=== PATIENT | male | born 1965 | race Caucasian/White ===

== ENCOUNTER 2020-08-19 18:55 | Inpatient (IN) | payer OTHER, SELFPAY ==
[2020-08-19 19:44] VITALS: BP 139/78; PULSE 135; RESP 18; TEMP 37.3; O2SAT 97; BMI 36.9
--- NOTE | 2020-08-19 20:03 | CT_ITS ---
EXAMINATION: CT ABDOMEN AND PELVIS WITH CONTRAST CLINICAL INFORMATION: Perineal area pain question as abscess. COMPARISON: None TECHNIQUE: Multidetector volumetric images were obtained from the superior aspect of the liver through the pubic symphysis following administration 85 mL of Omnipaque 350 intravenous contrast. Sagittal and coronal reformatted images were obtained on the technologist's workstation. Oral contrast: No This CT examination was performed using dose optimization techniques as appropriate, variously including the following: *Automated exposure control *Adjustment of mA and/or kV according to patient size (this includes techniques or standardized protocols for targeted exams where dose is matched to indication/reason for exam; i.e. extremities or head) *Use of iterative reconstruction technique DLP: 1737 mGy-cm FINDINGS: LUNG BASES: The visualized lung bases are unremarkable. LIVER, GALLBLADDER, AND BILIARY TREE: The liver is normal in size, shape, and attenuation. No focal hepatic lesion or biliary ductal dilatation is present. The gallbladder is unremarkable with no evidence of radiopaque gallstones, gallbladder wall thickening, or obvious pericholecystic inflammatory changes. PANCREAS: Unremarkable. SPLEEN: Unremarkable. ADRENAL GLANDS: Mild bilateral adrenal enlargement is seen. KIDNEYS AND URETERS: The kidneys are normal in size, shape, and attenuation. No hydronephrosis, hydroureter, or calculi seen. There are 2.5 x 2.6 cm cyst exophytic upper pole left kidney. There is bilateral perinephric stranding. BLADDER: Unremarkable. GASTROINTESTINAL TRACT: There is moderate scattered stool seen in the colon without any significant distention. The small bowel loops are normal caliber. The stomach is nondistended. No free air or free fluid seen. ABDOMINAL WALL: No significant hernia is appreciated. LYMPH NODES: Normal. VASCULAR: Unremarkable. PELVIC VISCERA: There is a right perianal soft tissue density consistent with inflammation but no drainable abscess or gas seen. Prominent bilateral inguinal canal containing fat is noted. The prostate gland is mildly enlarged. OSSEOUS STRUCTURES: No lytic or sclerotic process seen. CT/CT abdomen pelvis w con IMPRESSION: Right perineal soft tissue induration likely inflammatory process. There is no abscess or gas collection seen. Bilateral ischiorectal fossa appears normal. There is no abnormal pelvic or inguinal lymph nodes. Bilateral perinephric stranding. Small exophytic 2.6 cm cyst upper pole left kidney.
--- NOTE | 2020-08-19 20:04 | ECG_ITS ---
Test Reason : ABSCESS Blood Pressure : / mmHG Vent. Rate : 126 BPM Atrial Rate : 126 BPM P-R Int : 142 ms QRS Dur : 080 ms QT Int : 298 ms P-R-T Axes : 059 068 041 degrees QTc Int : 431 ms Sinus tachycardia Otherwise normal ECG When compared with ECG of 26-DEC-2018 12:51, No significant change was found Referred By: Suzie Ly Electronically Signed By:KARLY WELCH
--- NOTE | 2020-08-19 20:07 | ED.SKABFB ---
HPI - Skin/Abscess/Foreign Bdy General Chief complaint: Skin/Abscess/Foreign Body Stated complaint: Abscess Time Seen by Provider: 08/19/20 20:03 Source: patient Mode of arrival: ambulatory Limitations: no limitations History of Present Illness HPI narrative: 54 yo male with DM here with nausea, cellulitis and abscess R buttock into perineum that is draining yellow fluid, hx in December 2018 of necrotizing fasciitis - this feels somewhat similar but not as severe, area has been present x 3 days in the shower the patient expressed a significant amount of purulent exudate MD complaint: abscess/boil and lesion Onset (ago): day(s) (3) Tetanus up to date: yes Location: buttocks Severity: moderate Quality: aching Pain Consistency: constant Relieving factors: none Exacerbating factors: palpation and movement Context: other (hx of similar episodes in past requiring multiple debridements) Associated symptoms: chills and nausea Treatments prior to arrival: none Related Data Home Medications Medication Instructions Recorded Confirmed dulaglutide [Trulicity] 1 mg SUBCUT QWEEK 08/19/20 08/19/20 glipizide 1 tab PO DAILY 08/19/20 08/19/20 Allergies Allergy/AdvReac Type Severity Reaction Status Date / Time No Known Allergies Allergy Verified 08/19/20 19:47 [No Known Allergies*] Review of Systems Review of Systems: Constitutional : No Fever, pos Chills ENT/Mouth : No sore throat, No Rhinorrhea Eyes: No Eye Pain, No Swelling, No Redness Cardiovascular : No Chest Pain, No SOB Respiratory : No Cough, No Sputum Gastrointestinal : pos Nausea, No Vomiting, No Diarrhea, No abdominal Pain Genitourinary : No Dysuria, No Hematuria Musculoskeletal : No joint pain, No Myalgias, No Joint Swelling Skin : pos Skin Lesions, positive skin rash Neuro : No Weakness, No Numbness, No Headache Psych : No Anxiety, No Depression Heme/Lymph: No Bruising, No Bleeding,No Lymphadenopathy Endocrine : No Polyuria, No Polydipsia All other systems reviewed and are negative PMFSH Past Medical History Attestation statement: The following information was validated with the patient. Source: old records reviewed Medical History Diabetes HTN (hypertension) Necrotizing fasciitis Surgical History History of incision and drainage Social History Social History Smoking Status: Current every day smoker Substance Use Type: Marijuana Advance Directives: No Advance Directives Information Provided: Yes Physical Exam Vital Signs: Vital Signs: Last Vital Signs Temp 98.3 F 08/19/20 22:23 Pulse 115 H 08/19/20 22:23 Resp 16 08/19/20 22:23 BP 129/74 08/19/20 22:23 Pulse Ox 96 08/19/20 22:23 Body Mass Index 36.9 Appearance: Alert. Oriented X3. No acute distress. Eyes: Pupils equal, round and reactive to light. ENT: Pharynx normal. Neck: Normal inspection. Neck supple. CVS: tachycardic heart rate and rhythm. Pulses normal. Respiratory: No respiratory distress. Breath sounds normal. Abdomen: Soft and nontender. Genital / Rectal : R buttock large 6+ cm area that is indurated and thickened with yellow/red drainage from a point area extends into the perineum but does not involve the scrotal sac, ttp, very warm to touch Skin: Skin warm and dry. Normal skin color. Normal skin turgor. Extremities: No lower extremity edema. No calf ttp Neuro: Oriented X 3. No motor deficit. No sensory deficit. Course Course Course Narrative: I lanced the are on his buttock that was to a point and already draining, 10cc of thick serosanguinous fluid came out, plan to admit to hospital Procedures Abscess I/D Site: other (R buttock) Side (if applicable): right Local Anesthetic: lidocaine 1% Amount of anesthesia used (mL): 5 Technique: needle aspiration and incised with blade Amount of fluid expressed (mL): 10 Sent for culture/gram staining?: No Irrigation: Yes Packing used?: none MDM - Skin/Abscess/Foreign Bdy MDM Narrative Medical decision making narrative: 54 yo male with DM hx of necrotizing fasciitis in 2019 here with buttock abscess into the perineum no scrotal involvement now his lesion has been present and worsening for 3 days came today due to chills feeling hot and nausea, he will need labs, cultures, CT scan for gas, empiric zosyn, vancomyinc, clinda for toxin production, he will need monitoring and admission, possible surgical consult pending CT scan and results Lab Data Result diagrams: 08/19/20 20:57 08/19/20 20:57 Labs: Lab Results 08/19/20 08/19/20 08/19/20 Range/Units 20:56 20:56 20:56 WBC (4.8-10.8) X10*3/uL RBC (4.60-5.80) X10*6/uL Hgb (14.0-18.0) g/dl Hct (42-52) % MCV (80-98) fL MCH (27.0-33.0) pg MCHC (31.0-36.0) g/dl RDW (11.0-16.0) % Plt Count (160-400) X10*3/uL MPV (9.4-12.4) fL Immature Gran % (Auto) (0.0-0.4) % Neut % (Auto) (45-73) % Lymph % (Auto) (20-40) % [place] % (Auto) (2-11) % Eos % (Auto) (0-4) % Baso % (Auto) (0-2) % Lymph # (Auto) (1.2-4.9) X10*3/uL [place] # (Auto) (0.1-1.2) X10*3/uL Eos # (Auto) (0.0-0.4) X10*3/uL Baso # (Auto) (0.0-0.2) X10*3/uL Abs Immat Gran (auto) (0.00-0.03) X10*3/uL Absolute Neuts (auto) (2.0-8.3) X10*3/uL Absolute Nucleated RBC (0.0-0.012) X10*3/uL Nucleated RBC % (auto) (0.0-0.2) /100WBC Smear Tech's Comments PT (10.8-13.0) SEC INR (0.9-1.1) APTT (24.1-38.0) SEC VBG pH 7.45 H (7.32-7.43) VBG pCO2 41 mmhg VBG pO2 67 mmhg VBG HCO3 28 mmol/L VBG O2 Saturation 94.9 % VBG Base Excess 3.4 mmol/L Sodium (135-145) mmol/L Potassium (3.3-5.1) mmol/l Chloride (96-108) mmol/L Carbon Dioxide (22-29) mmol/L Anion Gap (12-20) BUN (9-16) mg/dL Creatinine (0.5-1.4) mg/dL Estim Creat Clear Calc Estimated GFR Random Glucose (60-115) mg/dL Lactic Acid 0.9 (0.5-2.0) mmol/L Calcium (8.4-10.2) mg/dL Magnesium 2.0 (1.6-2.6) mg/dL Total Bilirubin 0.4 (0.0-1.0) mg/dL Direct Bilirubin 0.2 (0.0-0.5) mg/dL AST 10 (5-37) U/L ALT 14 (0-40) U/L Alkaline Phosphatase 93 (39-117) U/L Total Creatine Kinase (38-174) U/L Total Protein 6.4 L (6.5-8.0) g/dL Albumin 3.6 (3.5-5.0) g/dL COVID-19 (GURVINDER) (Negative) COVID-19 Clin Com 08/19/20 08/19/20 08/19/20 Range/Units 20:57 20:57 20:57 WBC 18.7 H (4.8-10.8) X10*3/uL RBC 4.66 (4.60-5.80) X10*6/uL Hgb 15.1 (14.0-18.0) g/dl Hct 44.4 (42-52) % MCV 95.3 (80-98) fL MCH 32.4 (27.0-33.0) pg MCHC 34.0 (31.0-36.0) g/dl RDW 12.4 (11.0-16.0) % Plt Count 259 (160-400) X10*3/uL MPV 11.1 (9.4-12.4) fL Immature Gran % (Auto) 0.4 (0.0-0.4) % Neut % (Auto) 77.0 H (45-73) % Lymph % (Auto) 12.4 L (20-40) % [place] % (Auto) 9.1 (2-11) % Eos % (Auto) 0.8 (0-4) % Baso % (Auto) 0.3 (0-2) % Lymph # (Auto) 2.3 (1.2-4.9) X10*3/uL [place] # (Auto) 1.7 H (0.1-1.2) X10*3/uL Eos # (Auto) 0.2 (0.0-0.4) X10*3/uL Baso # (Auto) 0.1 (0.0-0.2) X10*3/uL Abs Immat Gran (auto) 0.08 H (0.00-0.03) X10*3/uL Absolute Neuts (auto) 14.4 H (2.0-8.3) X10*3/uL Absolute Nucleated RBC 0.000 (0.0-0.012) X10*3/uL Nucleated RBC % (auto) 0.0 (0.0-0.2) /100WBC Smear Tech's Comments VERIFIED PT (10.8-13.0) SEC INR (0.9-1.1) APTT (24.1-38.0) SEC VBG pH (7.32-7.43) VBG pCO2 mmhg VBG pO2 mmhg VBG HCO3 mmol/L VBG O2 Saturation % VBG Base Excess mmol/L Sodium 135 (135-145) mmol/L Potassium 4.2 (3.3-5.1) mmol/l Chloride 99 (96-108) mmol/L Carbon Dioxide 25 (22-29) mmol/L Anion Gap 15 (12-20) BUN 11 (9-16) mg/dL Creatinine 0.92 (0.5-1.4) mg/dL Estim Creat Clear Calc 119.6 Estimated GFR > 60 Random Glucose 273 H (60-115) mg/dL Lactic Acid (0.5-2.0) mmol/L Calcium 8.8 (8.4-10.2) mg/dL Magnesium (1.6-2.6) mg/dL Total Bilirubin (0.0-1.0) mg/dL Direct Bilirubin (0.0-0.5) mg/dL AST (5-37) U/L ALT (0-40) U/L Alkaline Phosphatase (39-117) U/L Total Creatine Kinase 38 (38-174) U/L Total Protein (6.5-8.0) g/dL Albumin (3.5-5.0) g/dL COVID-19 (GURVINDER) Negative (Negative) COVID-19 Clin Com See Note 08/19/20 Range/Units 20:57 WBC (4.8-10.8) X10*3/uL RBC (4.60-5.80) X10*6/uL Hgb (14.0-18.0) g/dl Hct (42-52) % MCV (80-98) fL MCH (27.0-33.0) pg MCHC (31.0-36.0) g/dl RDW (11.0-16.0) % Plt Count (160-400) X10*3/uL MPV (9.4-12.4) fL Immature Gran % (Auto) (0.0-0.4) % Neut % (Auto) (45-73) % Lymph % (Auto) (20-40) % [place] % (Auto) (2-11) % Eos % (Auto) (0-4) % Baso % (Auto) (0-2) % Lymph # (Auto) (1.2-4.9) X10*3/uL [place] # (Auto) (0.1-1.2) X10*3/uL Eos # (Auto) (0.0-0.4) X10*3/uL Baso # (Auto) (0.0-0.2) X10*3/uL Abs Immat Gran (auto) (0.00-0.03) X10*3/uL Absolute Neuts (auto) (2.0-8.3) X10*3/uL Absolute Nucleated RBC (0.0-0.012) X10*3/uL Nucleated RBC % (auto) (0.0-0.2) /100WBC Smear Tech's Comments PT 12.4 (10.8-13.0) SEC INR 1.0 (0.9-1.1) APTT 30.2 (24.1-38.0) SEC VBG pH (7.32-7.43) VBG pCO2 mmhg VBG pO2 mmhg VBG HCO3 mmol/L VBG O2 Saturation % VBG Base Excess mmol/L Sodium (135-145) mmol/L Potassium (3.3-5.1) mmol/l Chloride (96-108) mmol/L Carbon Dioxide (22-29) mmol/L Anion Gap (12-20) BUN (9-16) mg/dL Creatinine (0.5-1.4) mg/dL Estim Creat Clear Calc Estimated GFR Random Glucose (60-115) mg/dL Lactic Acid (0.5-2.0) mmol/L Calcium (8.4-10.2) mg/dL Magnesium (1.6-2.6) mg/dL Total Bilirubin (0.0-1.0) mg/dL Direct Bilirubin (0.0-0.5) mg/dL AST (5-37) U/L ALT (0-40) U/L Alkaline Phosphatase (39-117) U/L Total Creatine Kinase (38-174) U/L Total Protein (6.5-8.0) g/dL Albumin (3.5-5.0) g/dL COVID-19 (GURVINDER) (Negative) COVID-19 Clin Com ECG Data Attestation: I personally reviewed and interpreted this ECG as follows: ECG interpretation date: 08/19/20 ECG interpretation time: 20:17 Interpretation: Rate: 126 Rhythm: sinus tachycardia [place]: normal Normal P waves. Normal BHARAT. Normal QRS complex. ST T wave : normal no MARY qTC: normal prior studies: no acute ischemia The study has been interpreted contemporaneously by me. . Discharge Plan Discharge Clinical Impression: Cellulitis Qualifiers: Site of cellulitis: buttock Qualified Code(s): L03.317 - Cellulitis of buttock Leukocytosis Qualifiers: Leukocytosis type: unspecified Qualified Code(s): D72.829 - Elevated white blood cell count, unspecified Patient Disposition: Admitted As Inpatient
[2020-08-19] MEDS: Acetaminophen 325 MG TABLET 650 MG PO (21:00)
[2020-08-19] MEDS: ondansetron HCL 4 MG/2 ML VIAL IVPUSH (21:02)
[2020-08-19] MEDS: Morphine Sulfate 4 MG/ML CARTRIDGE IVPUSH (21:02)
[2020-08-19] MEDS: Piperacillin Sodium/Tazobactam 3.375 GM in 0.9 % Sodium Chloride 50 ML IV (21:03)
[2020-08-19 21:04] LABS: Basophils Absolute Auto 0.1 X10*3/uL (0.0-0.2); Basophils Percent Auto 0.3 % (0-2); Eosinophils Absolute Auto 0.2 X10*3/uL (0.0-0.4); Eosinophils Percent Auto 0.8 % (0-4); Hematocrit 44.4 % (42-52); Hemoglobin 15.1 g/dl (14.0-18.0); Imm Gran Abs Auto 0.08 X10*3/uL (0.00-0.03); Imm Gran Pct Auto 0.4 % (0.0-0.4); Lymphocytes Absolute Auto 2.3 X10*3/uL (1.2-4.9); Lymphocytes Percent Auto 12.4 % (20-40); MANUAL DIFF FLAG SCAN; Mean Corpuscular Hemoglobin 32.4 pg (27.0-33.0); Mean Corpuscular Volume 95.3 fL (80-98); Mean Platelet Volume 11.1 fL (9.4-12.4); Monocytes Absolute Auto 1.7 X10*3/uL (0.1-1.2); Monocytes Percent Auto 9.1 % (2-11); Neutrophils Absolute Auto 14.4 X10*3/uL (2.0-8.3); Platelet Count 259 X10*3/uL (160-400); Red Blood Count 4.66 X10*6/uL (4.60-5.80); Red Cell Distribution Width 12.4 % (11.0-16.0); SCAN SMEAR FLAG 1; White Blood Count 18.7 X10*3/uL (4.8-10.8)
[2020-08-19 21:08] LABS: Base Excess VBG 3.4 mmol/L; Blood Gas Serial # 5414; HCO3 VBG 28 mmol/L; Oxygen Saturation VBG 94.9 %; PCO2 VBG 41 mmhg; PO2 VBG 67 mmhg; pH VBG 7.45 (7.32-7.43)
[2020-08-19 21:11] LABS: Prothrombin Time 12.4 SEC (10.8-13.0)
[2020-08-19 21:14] LABS: Partial Thromboplastin Time 30.2 SEC (24.1-38.0)
[2020-08-19 21:25] LABS: COVID-19 Test Negative (Negative)
[2020-08-19 21:28] LABS: Lactic Acid 0.9 mmol/L (0.5-2.0)
[2020-08-19 21:32] LABS: Alanine Aminotransferase 14 U/L (0-40); Albumin Level 3.6 g/dL (3.5-5.0); Alkaline Phosphatase 93 U/L (39-117); Aspartate Amino Transferase 10 U/L (5-37); Bilirubin Direct 0.2 mg/dL (0.0-0.5); Bilirubin Total 0.4 mg/dL (0.0-1.0); Total Protein 6.4 g/dL (6.5-8.0)
[2020-08-19 21:33] LABS: Anion Gap 15 (12-20); Blood Urea Nitrogen 11 mg/dL (9-16); Calcium 8.8 mg/dL (8.4-10.2); Carbon Dioxide 25 mmol/L (22-29); Chloride 99 mmol/L (96-108); Creatinine Clr Calc Pharmacy 119.6; Estimated Glomerular Filt Rate > 60; Glucose Random 273 mg/dL (60-115); Potassium 4.2 mmol/l (3.3-5.1); Sodium 135 mmol/L (135-145)
[2020-08-19 21:39] LABS: SLIDE REVIEW VERIFIED
[2020-08-19] MEDS: Lidocaine/Epineph/Tetracaine 3 ML GEL.PF.APP TOPICAL (21:52)
[2020-08-19] MEDS: Clindamycin Phosphate/D5W 900 MG/50 ML PIGGYBACK 50 MG IV (21:57)
[2020-08-19] MEDS: iohexoL 350 MG/ML 100 ML INFUS..BTL IV (22:22)
[2020-08-19 22:23] VITALS: BP 129/74; PULSE 115; RESP 16; TEMP 36.8; O2SAT 96
--- NOTE | 2020-08-19 22:38 | PC.NURSE ---
LET APPLIED TO BOTTOM AREA ALL AROUND ABSCESS PT TAKEN TO CT IV HELD FOR CONTRAST.
--- NOTE | 2020-08-19 23:22 | PC.NURSE ---
PT ABSCESS CLEANED AND DRAINED BY DR. PUGH DSD APPLIED SCANT AMOUNT OF DRAINAGE NOTE.
[2020-08-19] MEDS: Lidocaine HCl 2 % MPF 5 ML VIAL SUBCUT (23:25)
--- NOTE | 2020-08-19 23:57 | PM.IMHP ---
History of Present Illness Date of Service: 08/19/20 Chief Complaint: Abscess This is a 54-year-old male with past medical history of diabetes who presents to the hospital with complaints of abscess in between his buttocks region. Patient reports that his pain started about 3 days ago, and he had a lump in that region but progressively got bigger and more painful. 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 He denies any fever or chills, reports that he felt nauseous, and felt his underwear was wet today, went to the bathroom and he was able to drain the abscess. He denies having any headache, change in vision, abdominal pain, no diarrhea, constipation, no urinary symptoms and no lower extremity edema otherwise. He reports that every couple of years he gets a similar thing and he did have a history of necrotizing fasciitis few years ago status post multiple debridement.. On arrival to the ED hemodynamically stable with a heart rate of 135 otherwise no abnormal vitals Labs are significant for WBC count of 18.7, hemoglobin 15.1, hematocrit 44.4, sodium of 135, potassium 4.2, glucose of 273, COVID-19 negative, Abdomen COVID19 CT shows right perennial soft tissue induration likely inflammatory process. With no abscess or gas collection. Bilateral ischiorectal fossa appears normal. Past medical history: Diabetes, necrotizing fasciitis Surgical history: Debridement Family history: Adopted Social history: Smokes about half a pack a day, occasionally drinks alcohol, smokes marijuana once in a while Review of Systems Review of Systems: Yes all other systems are reviewed and are negative [facility] Medical History Diabetes HTN (hypertension) Necrotizing fasciitis Surgical History History of incision and drainage Social History Smoking Status: Current every day smoker Substance Use Type: Marijuana Advance Directives: No Advance Directives Information Provided: Yes Meds Allergies Allergy/AdvReac Type Severity Reaction Status Date / Time No Known Allergies Allergy Verified 08/19/20 19:47 [No Known Allergies*] Home Medications Medication Instructions Recorded Confirmed Type dulaglutide [Trulicity] 1 mg SUBCUT QWEEK 08/19/20 08/19/20 History glipizide 1 tab PO DAILY 08/19/20 08/19/20 History Physical Exam Vital Signs and Narrative: Vital Signs: Last Vital Signs Temp 98.3 F 08/19/20 22:23 Pulse 115 H 08/19/20 22:23 Resp 16 08/19/20 22:23 BP 129/74 08/19/20 22:23 Pulse Ox 96 08/19/20 22:23 Body Mass Index 36.9 Const: General: cooperative and no acute distress Orientation/consciousness: patient oriented x3 Eyes: General: appearance normal, both eyes and all related structures Resp: Effort & Inspection: normal respiratory effort and able to speak in complete sentences Cardio: Rate: regular rate Rhythm: regular rhythm GI: Palpation (GI): Soft to palpation Auscultation: normal bowel sounds : Other: Perennial cellulitis with erythema, tenderness, and edema Skin: General skin exam: no rashes or lesions noted Neuro: General: patient oriented x3 Cognition (Neuro): normal cognition Extrem: General: Yes normal to inspection and Yes no pedal edema Results Labs CBC and Chem 7: 08/19/20 20:57 08/19/20 20:57 Labs: Laboratory Results - last 24 hr 08/19/20 08/19/20 08/19/20 20:56 20:56 20:56 MCV MCH MCHC RDW Plt Count MPV Immature Gran % (Auto) Neut % (Auto) Lymph % (Auto) [place] % (Auto) Eos % (Auto) Baso % (Auto) Lymph # (Auto) [place] # (Auto) Eos # (Auto) Baso # (Auto) Abs Immat Gran (auto) Absolute Neuts (auto) Absolute Nucleated RBC Nucleated RBC % (auto) Smear Tech's Comments PT INR APTT VBG pH 7.45 H VBG pCO2 41 VBG pO2 67 VBG HCO3 28 VBG O2 Saturation 94.9 VBG Base Excess 3.4 Anion Gap Estim Creat Clear Calc Estimated GFR Random Glucose Lactic Acid 0.9 Calcium Magnesium 2.0 Total Bilirubin 0.4 Direct Bilirubin 0.2 AST 10 ALT 14 Alkaline Phosphatase 93 Total Creatine Kinase Total Protein 6.4 L Albumin 3.6 COVID-19 (GURVINDER) COVID-19 Clin Com 08/19/20 08/19/20 08/19/20 20:57 20:57 20:57 MCV 95.3 MCH 32.4 MCHC 34.0 RDW 12.4 Plt Count 259 MPV 11.1 Immature Gran % (Auto) 0.4 Neut % (Auto) 77.0 H Lymph % (Auto) 12.4 L [place] % (Auto) 9.1 Eos % (Auto) 0.8 Baso % (Auto) 0.3 Lymph # (Auto) 2.3 [place] # (Auto) 1.7 H Eos # (Auto) 0.2 Baso # (Auto) 0.1 Abs Immat Gran (auto) 0.08 H Absolute Neuts (auto) 14.4 H Absolute Nucleated RBC 0.000 Nucleated RBC % (auto) 0.0 Smear Tech's Comments VERIFIED PT INR APTT VBG pH VBG pCO2 VBG pO2 VBG HCO3 VBG O2 Saturation VBG Base Excess Anion Gap 15 Estim Creat Clear Calc 119.6 Estimated GFR > 60 Random Glucose 273 H Lactic Acid Calcium 8.8 Magnesium Total Bilirubin Direct Bilirubin AST ALT Alkaline Phosphatase Total Creatine Kinase 38 Total Protein Albumin COVID-19 (GURVINDER) Negative COVID-19 Clin Com See Note 08/19/20 20:57 MCV MCH MCHC RDW Plt Count MPV Immature Gran % (Auto) Neut % (Auto) Lymph % (Auto) [place] % (Auto) Eos % (Auto) Baso % (Auto) Lymph # (Auto) [place] # (Auto) Eos # (Auto) Baso # (Auto) Abs Immat Gran (auto) Absolute Neuts (auto) Absolute Nucleated RBC Nucleated RBC % (auto) Smear Tech's Comments PT 12.4 INR 1.0 APTT 30.2 VBG pH VBG pCO2 VBG pO2 VBG HCO3 VBG O2 Saturation VBG Base Excess Anion Gap Estim Creat Clear Calc Estimated GFR Random Glucose Lactic Acid Calcium Magnesium Total Bilirubin Direct Bilirubin AST ALT Alkaline Phosphatase Total Creatine Kinase Total Protein Albumin COVID-19 (GURVINDER) COVID-19 Clin Com Imaging Radiologist's Impressions: Impressions Abdomen/Pelvis CT 08/19/20 20:03 IMPRESSION: Right perineal soft tissue induration likely inflammatory process. There is no abscess or gas collection seen. Bilateral ischiorectal fossa appears normal. There is no abnormal pelvic or inguinal lymph nodes. Bilateral perinephric stranding. Small exophytic 2.6 cm cyst upper pole left kidney. Assessment and Plan (1) Sepsis: Qualifiers: Sepsis type: sepsis due to unspecified organism Sepsis acute organ dysfunction status: without acute organ dysfunction Qualified Code(s): A41.9 - Sepsis, unspecified organism Status: Acute (2) Cellulitis: Qualifiers: Site of cellulitis: buttock Qualified Code(s): L03.317 - Cellulitis of buttock Status: Acute (3) Leukocytosis: Qualifiers: Leukocytosis type: unspecified Qualified Code(s): D72.829 - Elevated white blood cell count, unspecified Status: Acute 54-year-old male with past medical history of diabetes and necrotizing fasciitis who presents to the hospital with an abscess in the perineal region. # sepsis - most likely secondary to the cellulitis - has leukocytosis, tachycardia - Had an I&D by ED physician with 10cc of serosanguineous thick liquids drained Plan: - will start on vancomycin given drainage - follow cultures # perennial cellulitis - erythema, tenderness and edema - has leukocytosis, afebrile Plan: -Start vancomycin, follow blood cultures - Gen surge consulted # leukocytosis - secondary to cellulitis - follow CBC # diabetes - will start low-dose sliding scale insulin - hold oral meds - diabetic diet DVT prophylaxis: Lovenox
[2020-08-20 01:17] LABS: Glucose, Whole Blood 224 mg/dL (60-115)
[2020-08-20 01:36] LABS: Glucose Urine UA >=1000 MG/DL (NEG); Leukocyte Esterase Urine NEG (NEG); Nitrite Urine NEG (NEG); PH 5.5 (5.0-8.0); Specific Gravity - Urine <= 1.005 (1.005-1.025); Urine Blood NEG (NEG); Urine Ketones 5 MG/DL (NEG); Urine Protein NEG (NEG-TRACE)
[2020-08-20 01:38] LABS: Appearance Urine CLEAR; Color Urine YELLOW
--- NOTE | 2020-08-20 02:07 | PC.NURSE ---
Report called to RN. Plan to transfer patient.
[2020-08-20] MEDS: 0.9 % Sodium Chloride Flush 3 ML SYRINGE IVFLUSH ×3 (02:25→15:19)
[2020-08-20] MEDS: oxyCODONE HCl Immed Release 5 MG TABLET PO ×2 (02:46→08:32)
[2020-08-20 03:50] VITALS: BP 136/90; PULSE 106; RESP 16; TEMP 36.5; O2SAT 96
[2020-08-20] MEDS: Enoxaparin Sodium 40 MG/0.4 ML SYRINGE SUBCUT (05:16)
[2020-08-20 05:28] LABS: RBC Urine 0-2 /HPF (0); Squamous Epithelial Cell Urine TRACE /LPF; WBC Urine 0-2 /HPF (0-4)
[2020-08-20 07:10] LABS: MANUAL DIFF FLAG NO
--- NOTE | 2020-08-20 07:10 | HO.PM.IMPN ---
Subjective Subjective Date of Service: 08/20/20 Interval History: Seen in follow up for gluteal abscess with sepsis. Has pain in left buttock area Review of Systems Gen: no fever Resp: no sob, no cough CV: no chest, no HAUSER, no leg edema GI/: No n/v, no abd pain,buttock pain Neuro: No confusion Physical Exam Vital Signs: Vital Signs: Last Vital Signs Temp 97.7 F 08/20/20 03:50 Pulse 106 H 08/20/20 03:50 Resp 16 08/20/20 03:50 BP 136/90 H 08/20/20 03:50 Pulse Ox 96 08/20/20 03:50 Body Mass Index 36.9 Const: General: cooperative Orientation/consciousness: patient oriented x3 Resp: Effort & Inspection: normal respiratory effort Cardio: Rate: regular rate Rhythm: regular rhythm GI: Palpation (GI): Soft to palpation Auscultation: normal bowel sounds : Other: Left buttock area of and duration heart Ms. and slight discharge, tenderness, and edema Skin: General skin exam: no rashes or lesions noted Neuro: General: patient oriented x3 Cognition (Neuro): normal cognition Objective Data Current Medications Generic Name Dose Route Start Last Admin Trade Name Freq PRN Reason Stop Dose Admin Acetaminophen 650 mg 08/20/20 01:11 Acetaminophen 325 Mg Tablet PO Q6H PRN Pain, Mild (Pain Scale 1-3) Docusate Sodium 100 mg 08/20/20 01:11 Docusate Sodium 100 Mg Capsule PO DAILY PRN Constipation Enoxaparin Sodium 40 mg 08/20/20 06:00 08/20/20 05:16 Enoxaparin Sodium 40 Mg/0.4 Ml Syringe SUBCUT 40 mg Q24H SOTO Administration Insulin Human Lispro 0 unit 08/20/20 07:30 Insulin Lispro 100 Unit/Ml 3 Ml Vial SUBCUT QIDACHS [facility] Protocol Ondansetron HCl 4 mg 08/20/20 01:11 Ondansetron Hcl 4 Mg/2 Ml Vial IVPUSH Q8H PRN Nausea and Vomiting Oxycodone HCl 5 mg 08/20/20 01:11 08/20/20 02:46 Oxycodone Hcl Immed Release 5 Mg Tablet PO 5 mg Q6H PRN Administration Pain, Severe (Pain Scale 7-10) Pharmacy Consult 1 each 08/19/20 20:03 Consult Rx Perform Med Rec MISCELLANE ONCE PRN Consult order Pharmacy Consult 1 each 08/20/20 01:11 Consult Rx Vancomycin Dosing MISCELLANE DAILY PRN Consult order Sodium Chloride 3 ml 08/20/20 01:11 08/20/20 02:25 0.9 % Sodium Chloride Flush 3 Ml Syringe IVFLUSH 3 ml QSHIFT SOTO Administration Labs CBC & Chem 7: 08/20/20 06:54 08/20/20 06:54 Assessment and Plan (1) Sepsis: Status: Acute (2) Cellulitis: Status: Acute (3) Leukocytosis: Status: Acute Assessment and Plan: 54-year-old male with past medical history of diabetes and necrotizing fasciitis who presents to the hospital with an abscess in the perineal region associated with sepsis # Sepsis due gluteal abscess -Get Surgery consult -ID consult -Vancomycin and Zosyn # leukocytosis - secondary to cellulitis - follow CBC # diabetes--SSI, trulicity if able to bring from and ADA diet DVT prophylaxis: Lovenox
[2020-08-20 07:18] LABS: Basophils Absolute Auto 0.1 X10*3/uL (0.0-0.2); Basophils Percent Auto 0.4 % (0-2); Eosinophils Absolute Auto 0.5 X10*3/uL (0.0-0.4); Eosinophils Percent Auto 3.5 % (0-4); Hematocrit 42.4 % (42-52); Hemoglobin 14.3 g/dl (14.0-18.0); Imm Gran Abs Auto 0.03 X10*3/uL (0.00-0.03); Imm Gran Pct Auto 0.2 % (0.0-0.4); Lymphocytes Absolute Auto 2.4 X10*3/uL (1.2-4.9); Lymphocytes Percent Auto 18.5 % (20-40); Mean Corpuscular HGB Conc 33.7 g/dl (31.0-36.0); Mean Corpuscular Hemoglobin 32.5 pg (27.0-33.0); Mean Corpuscular Volume 96.4 fL (80-98); Mean Platelet Volume 11.1 fL (9.4-12.4); Neutrophils Percent Auto 69.4 % (45-73); Platelet Count 225 X10*3/uL (160-400); Red Cell Distribution Width 12.4 % (11.0-16.0)
[2020-08-20 07:37] LABS: Anion Gap 11 (12-20); Blood Urea Nitrogen 12 mg/dL (9-16); Calcium 8.3 mg/dL (8.4-10.2); Carbon Dioxide 27 mmol/L (22-29); Chloride 102 mmol/L (96-108); Creatinine Clr Calc Pharmacy 126.5; Estimated Glomerular Filt Rate > 60; Glucose Random 260 mg/dL (60-115); Potassium 3.9 mmol/l (3.3-5.1); Sodium 136 mmol/L (135-145)
[2020-08-20 07:40] VITALS: BP 124/84; PULSE 97; RESP 18; TEMP 36.3; O2SAT 97
[2020-08-20 07:52] LABS: Glucose, Whole Blood 244 mg/dL (60-115)
[2020-08-20] MEDS: Insulin Lispro 100 UNIT/ML 3 ML VIAL SUBCUT ×4 (07:58→21:12)
--- NOTE | 2020-08-20 10:51 | MHC.CM.NN ---
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 HE REPORTED HE HAD SOMETHING LIKE THIS A YEAR AGO (NARCOTIZING FASCATIS AND HAD DEBRIDEMENT AND HAD THE [facility] FOR DRESSING) DISCHARGE PLAN HOME NO SERVICES VS HOME WITH REF TO THE [facility] IF NEEDED FOR DRESSINGS (PATIENT REQUESTED THEM HE HAD THEM IN THE PAST , REFERRAL MADE PCP DR ANABELL JACOBS TRANSPORTATION GIRLFRIEND
[2020-08-20 11:24] VITALS: BP 148/84; PULSE 99; RESP 16; TEMP 36.5; O2SAT 97
[2020-08-20 11:59] LABS: Glucose, Whole Blood 220 mg/dL (60-115)
--- NOTE | 2020-08-20 13:13 | PM.CNGS ---
History of Present Illness Consult details Consult date: 08/20/20 Reason for consult: other (Right buttock abscess) Requesting physician: Osvaldo Good Narrative: This is a 54-year-old gentleman who has type 2 diabetes and obesity and also history of necrotizing fasciitis of the left buttock in December of 2018 who presented to the emergency department yesterday after developing a area induration on his right buttock into the perineum. Patient reports about 4 days ago he noticed a small lump that was and nonpainful on the right buttock inferiorly. About 3 days ago he noticed that there was some pain associated with this lump and also some swelling. Patient is a otr truck driver for profession and noticed that the pain was becoming more intense and the swelling of the right buttock was more. Yesterday the patient noted that there was drainage from the right inferior buttock of a foul smelling serosanguineous fluid. He was able to express a significant amount of this fluid from the inferior buttock and perineal region. Patient denies any fever chills shortness of breath or chest pain. Patient was seen in the emergency department and evaluated for this. The area of induration was opened larger and only a serosanguineous fluid was expressed. Patient underwent a CT scan of the abdomen and pelvis which showed no evidence of abscess collection or gas. There was evidence of inflammation consistent with cellulitis of the region. Patient reports he feels much better after the the right buttock was drained. He denies any current pain of this area. Review of Systems Review of Systems: Yes all other systems are reviewed and are negative Constitutional: Constitutional: Denies chills, Denies daytime sleepiness, Denies difficulty sleeping, Denies excessive sweating, Denies fatigue, Denies fever(s), Denies headache(s), Denies night sweats, Denies snoring, Denies stops breathing during sleep and Denies weakness Eyes: Eyes: Denies blurry vision, Denies other visual disturbances and Denies requires corrective lenses ENT: Denies bleeding gums, Denies dysphagia, Reports dizziness, Denies headache(s), Denies hearing loss, Denies sinus pain and Denies sore throat Cardiovascular: Cardiovascular: Denies chest pain, Denies chest pain at rest, Denies chest pain with activity, Denies syncope, Denies irregular heart rhythm, Denies leg edema, Denies lightheadedness, Denies dyspnea, Denies dyspnea on exertion and Denies orthopnea Respiratory: Respiratory: Denies chest congestion, Denies cough, Denies dyspnea, Denies dyspnea on exertion, Denies snoring and Denies wheezing Gastrointestinal: Gastrointestinal: Denies abdominal pain, Denies melena, Denies bloating, Denies constipation, Denies dysphagia, Denies heartburn, Denies diarrhea, Denies nausea and Denies vomiting Genitourinary: Genitourinary: Denies hematuria, Denies difficulty urinating and Denies nocturia Musculoskeletal: Musculoskeletal: Denies abnormal gait, Denies back pain, Denies deformity, Denies arthralgias, Denies joint swelling and Denies stiffness Integumentary/Breasts: Skin/Breast: Denies breast pain, Denies breast mass and Denies nipple discharge Neurologic: Denies abnormal gait, Reports dizziness, Denies syncope, Denies headache(s), Denies seizure-like activity and Denies weakness Psychiatric: Psychiatric: Denies abnormal sleep pattern, Denies anxiety, Denies depression and Denies panic attacks Endocrine: Endocrine: Denies excessive sweating, Denies fatigue, Denies heat intolerance, Denies polyphagia, Denies polydipsia and Denies polyuria Hematologic/Lymphatic: Hematologic/Lymphatic: Denies easy bleeding and Denies easy bruising Allergic/Immunologic: Allergic/Immunologic: Denies wheezing PMFSH Past Medical History Medical History (Updated 08/20/20 @ 13:20 by Roberta Llamas MD) Adopted Diabetes HTN (hypertension) Necrotizing fasciitis Family History Family History (Updated 08/20/20 @ 13:20 by Roberta Llamas MD) Mother No problems noted. Father No problems noted. Surgical History Surgical History (Updated 08/20/20 @ 13:19 by Roberta Llamas MD) History of incision and drainage Social History Social History (Updated 08/20/20 @ 13:21 by Roberta Llamas MD) Household Members: Significant Other Housing: Apartment Alcohol intake: current Alcohol intake frequency: holidays/special occasions only Smoking Status: Current every day smoker Tobacco Type: Cigarette Cigarettes Per Day: 0.5 Smoked in Last 30 Days: Yes Patient Interested in Nicotine Replacement: No Patient Given Instructions on How to Stop Smoking: Yes Date Education Initiated: 08/20/20 Second Hand Smoke Exposure: No Use of substances other than those prescribed or required for medical reasons: Yes Substance Use Type: Marijuana Substance Use Frequency: Occasionally Last Used Substance: Days (ago) Have you been hit, kicked, punched, or otherwise hurt by someone within the past year? If so, by whom?: No Do you feel safe in your current relationship?: No Is there a partner from a previous relationship who is making you feel unsafe now?: No Are you made to feel afraid or neglected: No Advance Directives: No Advance Directives Information Provided: Yes Advance Directives on File: No Do you have thoughts of harming others: None Do you have a plan to hurt others: No Plan Recently lost weight without trying: No service: No Current occupational status: employed Meds Allergies Allergy/AdvReac Type Severity Reaction Status Date / Time No Known Allergies Allergy Verified 08/19/20 19:47 [No Known Allergies*] Home Medications Medication Instructions Recorded Confirmed Type dulaglutide [Trulicity] 1 mg SUBCUT QWEEK 08/19/20 08/19/20 History glipizide 1 tab PO DAILY 08/19/20 08/19/20 History Physical Exam Vital Signs: Vital Signs: Last Vital Signs Temp 97.7 F 08/20/20 11:24 Pulse 99 08/20/20 11:24 Resp 16 08/20/20 11:24 BP 148/84 H 08/20/20 11:24 Pulse Ox 97 08/20/20 11:24 Body Mass Index 36.9 Const: General: cooperative, healthy appearing, comfortable, no acute distress and well developed Nutritional Appearance: obese Orientation/consciousness: patient oriented x3 Limitations: no limitations HENMT: Head: Yes normal to inspection and Yes atraumatic Ears: hearing grossly normal bilaterally General nose exam: Normal external nose present Mouth: Normal oral and palatal mucosa present Throat: Yes posterior oropharynx normal Eyes: General: appearance normal, both eyes and all related structures Sclerae: sclerae normal EOM: EOMs intact bilaterally Neck: Neck: Yes normal visual inspection, Yes full ROM, Yes no lymphadenopathy and Yes trachea midline Thyroid: Thyroid normal Resp: Effort & Inspection: normal respiratory effort Auscultation: clear to auscultation bilaterally Cardio: Jugular venous distension: no JVD Rate: regular rate Heart sounds: S1 normal heart sound present, S2 normal heart sound present, no click, no gallops, no murmurs and no rubs GI: Inspection: Yes normal to inspection and Yes obesity Palpation (GI): Soft to palpation, not firm, nontender, no guarding, not rigid and hepatosplenomegaly present Percussion: Yes normal to percussion : Other: 5 mm incision and drainage region in the right perineum with some induration and mild erythema. Minimal tenderness to palpation. No evidence of fluctuance. There is serosanguineous drainage without any evidence of purulence. Skin: General skin exam: no rashes or lesions noted Lesions: no lesions Rashes: no rashes Trauma: no lacerations or abrasions Wounds: wounds noted (5 mm incision and drainage site in the right perineum with serosanguineous ) Neuro: General: patient oriented x3 Cranial nerves: Yes CN's II-XII intact bilaterally Extrem: General: Yes normal to inspection, Yes full ROM, Yes no clubbing, cyanosis or edema, Yes no pedal edema and Yes no calf tenderness Psych: Appearance: grossly normal Speech and movement: Normal speech and movement present Affect: normal affect Attitude: cooperative Thought content: Normal thought content present Insight: Good insight present (Psych) Results Labs Result diagrams: 08/20/20 06:54 08/20/20 06:54 Labs: Abnormal lab results 08/19/20 08/19/20 08/19/20 Range/Units 20:56 20:56 20:57 WBC 18.7 H (4.8-10.8) X10*3/uL RBC (4.60-5.80) X10*6/uL Neut % (Auto) 77.0 H (45-73) % Lymph % (Auto) 12.4 L (20-40) % [place] # (Auto) 1.7 H (0.1-1.2) X10*3/uL Eos # (Auto) (0.0-0.4) X10*3/uL Abs Immat Gran (auto) 0.08 H (0.00-0.03) X10*3/uL Absolute Neuts (auto) 14.4 H (2.0-8.3) X10*3/uL VBG pH 7.45 H (7.32-7.43) Anion Gap (12-20) POC Glucose (60-115) mg/dL Random Glucose (60-115) mg/dL Calcium (8.4-10.2) mg/dL Total Protein 6.4 L (6.5-8.0) g/dL Urine Glucose (UA) (NEG) MG/DL 08/19/20 08/20/20 08/20/20 Range/Units 20:57 01:06 01:12 WBC (4.8-10.8) X10*3/uL RBC (4.60-5.80) X10*6/uL Neut % (Auto) (45-73) % Lymph % (Auto) (20-40) % [place] # (Auto) (0.1-1.2) X10*3/uL Eos # (Auto) (0.0-0.4) X10*3/uL Abs Immat Gran (auto) (0.00-0.03) X10*3/uL Absolute Neuts (auto) (2.0-8.3) X10*3/uL VBG pH (7.32-7.43) Anion Gap (12-20) POC Glucose 224 H (60-115) mg/dL Random Glucose 273 H (60-115) mg/dL Calcium (8.4-10.2) mg/dL Total Protein (6.5-8.0) g/dL Urine Glucose (UA) >=1000 H (NEG) MG/DL 08/20/20 08/20/20 08/20/20 Range/Units 06:54 06:54 07:44 WBC 13.0 H (4.8-10.8) X10*3/uL RBC 4.40 L (4.60-5.80) X10*6/uL Neut % (Auto) (45-73) % Lymph % (Auto) 18.5 L (20-40) % [place] # (Auto) (0.1-1.2) X10*3/uL Eos # (Auto) 0.5 H (0.0-0.4) X10*3/uL Abs Immat Gran (auto) (0.00-0.03) X10*3/uL Absolute Neuts (auto) 9.0 H (2.0-8.3) X10*3/uL VBG pH (7.32-7.43) Anion Gap 11 L (12-20) POC Glucose 244 H (60-115) mg/dL Random Glucose 260 H (60-115) mg/dL Calcium 8.3 L (8.4-10.2) mg/dL Total Protein (6.5-8.0) g/dL Urine Glucose (UA) (NEG) MG/DL 08/20/20 Range/Units 11:27 WBC (4.8-10.8) X10*3/uL RBC (4.60-5.80) X10*6/uL Neut % (Auto) (45-73) % Lymph % (Auto) (20-40) % [place] # (Auto) (0.1-1.2) X10*3/uL Eos # (Auto) (0.0-0.4) X10*3/uL Abs Immat Gran (auto) (0.00-0.03) X10*3/uL Absolute Neuts (auto) (2.0-8.3) X10*3/uL VBG pH (7.32-7.43) Anion Gap (12-20) POC Glucose 220 H (60-115) mg/dL Random Glucose (60-115) mg/dL Calcium (8.4-10.2) mg/dL Total Protein (6.5-8.0) g/dL Urine Glucose (UA) (NEG) MG/DL Short CBC 08/19/20 08/20/20 Range/Units 20:57 06:54 WBC 18.7 H 13.0 H (4.8-10.8) X10*3/uL Hgb 15.1 14.3 (14.0-18.0) g/dl Hct 44.4 42.4 (42-52) % Plt Count 259 225 (160-400) X10*3/uL BMP 08/19/20 08/20/20 20:57 06:54 Sodium 135 136 Potassium 4.2 3.9 Chloride 99 102 Carbon Dioxide 25 27 BUN 11 12 Creatinine 0.92 0.87 Calcium 8.8 8.3 L Cardiac Enzymes 08/19/20 Range/Units 20:57 Total Creatine Kinase 38 (38-174) U/L Liver Function 08/19/20 Range/Units 20:56 Total Bilirubin 0.4 (0.0-1.0) mg/dL Direct Bilirubin 0.2 (0.0-0.5) mg/dL AST 10 (5-37) U/L ALT 14 (0-40) U/L Alkaline Phosphatase 93 (39-117) U/L Albumin 3.6 (3.5-5.0) g/dL Urine 08/20/20 Range/Units 01:06 Urine Color YELLOW Urine Appearance CLEAR Urine pH 5.5 (5.0-8.0) Ur Specific [place] <= 1.005 (1.005-1.025) Urine Protein NEG (NEG-TRACE) MG/DL Urine Glucose (UA) >=1000 H (NEG) MG/DL All other labs normal. Assessment and Plan (1) Cellulitis of right buttock: Status: Acute This is a 54-year-old gentleman with type 2 diabetes and obesity and history of smoking who presented with in early cellulitis with associated serosanguineous drainage related to the cellulitis of the right buttock. Cellulitis is improving after incision and drainage of a serous fluid. Patient is clinically improved. No indication for any further drainage procedure. Patient should continue to receive IV antibiotics and then be discharged home on p.o. antibiotics once okay from the medical standpoint. Patient may likely be discharged home tomorrow if erythema has improved. Thank you for this consultation please call with questions
[2020-08-20 15:10] VITALS: BP 123/76; PULSE 94; RESP 17; TEMP 36.6; O2SAT 95
[2020-08-20] MEDS: Acetaminophen 325 MG TABLET 650 MG PO (15:23)
[2020-08-20 16:43] LABS: Glucose, Whole Blood 218 mg/dL (60-115)
[2020-08-20 19:13] VITALS: BP 132/81; PULSE 97; RESP 18; TEMP 37.1; O2SAT 97
[2020-08-20 20:13] LABS: Glucose, Whole Blood 263 mg/dL (60-115)
[2020-08-20 23:06] VITALS: BP 108/71; PULSE 97; RESP 20; TEMP 37; O2SAT 96
[2020-08-21 00:08] LABS: Vancomycin Trough 13.7 mcg/mL (10.0-20.0)
[2020-08-21] MEDS: 0.9 % Sodium Chloride Flush 3 ML SYRINGE IVFLUSH ×3 (00:35→16:55)
[2020-08-21 03:38] VITALS: BP 117/76; PULSE 91; RESP 20; TEMP 36.6; O2SAT 96
[2020-08-21] MEDS: Enoxaparin Sodium 40 MG/0.4 ML SYRINGE SUBCUT (05:56)
[2020-08-21] MEDS: oxyCODONE HCl Immed Release 5 MG TABLET PO (05:59)
[2020-08-21 07:35] VITALS: BP 132/79; PULSE 95; RESP 18; TEMP 36.2; O2SAT 94
[2020-08-21 07:43] LABS: Glucose, Whole Blood 216 mg/dL (60-115)
[2020-08-21] MEDS: Insulin Lispro 100 UNIT/ML 3 ML VIAL SUBCUT ×4 (08:35→22:10)
--- NOTE | 2020-08-21 10:45 | HO.PM.IMPN ---
Subjective Subjective Date of Service: 08/21/20 Interval History: Seen in f/u for gluteal abscess/cellulitis... Better Review of Systems Gen: no fever Resp: no sob, no cough CV: no chest, no HAUSER, no leg edema GI/: No n/v, no abd pain,buttock pain Neuro: No confusion Physical Exam Vital Signs: Vital Signs: Last Vital Signs Temp 97.2 F 08/21/20 07:35 Pulse 95 08/21/20 07:35 Resp 18 08/21/20 07:35 BP 132/79 08/21/20 07:35 Pulse Ox 94 08/21/20 07:35 Body Mass Index 36.9 Const: General: cooperative Orientation/consciousness: patient oriented x3 Resp: Effort & Inspection: normal respiratory effort Cardio: Rate: regular rate Rhythm: regular rhythm GI: Palpation (GI): Soft to palpation Auscultation: normal bowel sounds : Other: Left buttock area of and duration heart Ms. and slight discharge, tenderness, and edema Skin: General skin exam: no rashes or lesions noted Neuro: General: patient oriented x3 Cognition (Neuro): normal cognition Objective Data Current Medications Generic Name Dose Route Start Last Admin Trade Name Freq PRN Reason Stop Dose Admin Acetaminophen 650 mg 08/20/20 01:11 08/20/20 15:23 Acetaminophen 325 Mg Tablet PO 650 mg Q6H PRN Administration Pain, Mild (Pain Scale 1-3) Docusate Sodium 100 mg 08/20/20 01:11 Docusate Sodium 100 Mg Capsule PO DAILY PRN Constipation Enoxaparin Sodium 40 mg 08/20/20 06:00 08/21/20 05:56 Enoxaparin Sodium 40 Mg/0.4 Ml Syringe SUBCUT 40 mg Q24H SOTO Administration Vancomycin HCl 750 mg/ 275 mls @ 183.333 mls/hr 08/20/20 08:00 08/21/20 10:11 Vancomycin HCl 500 mg/ Sodium IV Infused Chloride Q8H SOTO Infusion Insulin Human Lispro 0 unit 08/20/20 07:30 08/21/20 08:35 Insulin Lispro 100 Unit/Ml 3 Ml Vial SUBCUT 4 unit QIDACHS SOTO Administration Protocol Ondansetron HCl 4 mg 08/20/20 01:11 Ondansetron Hcl 4 Mg/2 Ml Vial IVPUSH Q8H PRN Nausea and Vomiting Oxycodone HCl 5 mg 08/20/20 01:11 08/21/20 05:59 Oxycodone Hcl Immed Release 5 Mg Tablet PO 5 mg Q6H PRN Administration Pain, Severe (Pain Scale 7-10) Pharmacy Consult 1 each 08/19/20 20:03 Consult Rx Perform Med Rec MISCELLANE ONCE PRN Consult order Pharmacy Consult 1 each 08/20/20 01:11 Consult Rx Vancomycin Dosing MISCELLANE DAILY PRN Consult order Sodium Chloride 3 ml 08/20/20 01:11 08/21/20 08:37 0.9 % Sodium Chloride Flush 3 Ml Syringe IVFLUSH 3 ml QSHIFT SOTO Administration Labs CBC & Chem 7: 08/20/20 06:54 08/20/20 06:54 Microbiology Microbiology Results: Microbiology 08/19/20 20:58 Blood - Venous Blood Culture - Preliminary No growth after 24 hours. 08/19/20 20:55 Blood - Venous Blood Culture - Preliminary No growth after 24 hours. Assessment and Plan (1) Cellulitis of right buttock: Status: Acute (2) Sepsis: Status: Acute (3) Cellulitis: Status: Acute (4) Leukocytosis: Status: Acute Assessment and Plan: 54-year-old male with past medical history of diabetes and necrotizing fasciitis who presents to the hospital with an abscess in the perineal region associated with sepsis # Sepsis due gluteal abscess--improving, does not need I and D accoding to surgery -ID consult -Vancomycin and Zosyn--And likely to PO later today and discharge # leukocytosis - secondary to cellulitis - follow CBC # diabetes--SSI, trulicity if able to bring from and ADA diet DVT prophylaxis: Lovenox
[2020-08-21 11:32] VITALS: BP 136/79; PULSE 95; RESP 18; TEMP 36.1; O2SAT 95
[2020-08-21 11:45] LABS: Glucose, Whole Blood 229 mg/dL (60-115)
[2020-08-21 15:10] VITALS: BMI 36.9
[2020-08-21 15:29] VITALS: BP 165/93; PULSE 94; RESP 20; TEMP 36.8; O2SAT 96
[2020-08-21 16:37] LABS: Glucose, Whole Blood 247 mg/dL (60-115)
[2020-08-21 19:29] VITALS: BP 140/85; PULSE 97; RESP 20; TEMP 36.6; O2SAT 95
[2020-08-21 19:41] LABS: Glucose, Whole Blood 186 mg/dL (60-115)
[2020-08-21 23:25] VITALS: BP 129/83; PULSE 88; RESP 20; TEMP 36.9; O2SAT 95
[2020-08-21 23:30] LABS: Vancomycin Trough 21.6 mcg/mL (10.0-20.0)
[2020-08-22] MEDS: 0.9 % Sodium Chloride Flush 3 ML SYRINGE IVFLUSH (00:37)
[2020-08-22 03:34] VITALS: BP 129/87; PULSE 93; RESP 20; TEMP 36.8; O2SAT 95
[2020-08-22] MEDS: Enoxaparin Sodium 40 MG/0.4 ML SYRINGE SUBCUT (05:57)
[2020-08-22 07:33] VITALS: BP 144/87; PULSE 102; RESP 18; TEMP 36.7; O2SAT 95
[2020-08-22 07:48] LABS: Glucose, Whole Blood 191 mg/dL (60-115)
[2020-08-22] MEDS: Insulin Lispro 100 UNIT/ML 3 ML VIAL SUBCUT ×2 (09:05→12:30)
--- NOTE | 2020-08-22 09:45 | PM.DS ---
DS: Providers Provider Date of admission: 08/19/20 23:51 Primary care physician: Cheikh Duran MD Consults: 08/20/20 01:11 Consult to General Surgery Routine Consulting Provider: Roberta Reinoso Reason for consultation: abscess Has provider been notified: No DS: Diagnosis Discharge Diagnosis (1) Cellulitis of right buttock: Status: Acute (2) Sepsis: Status: Resolved (3) Cellulitis: Status: Deleted (4) Leukocytosis: Status: Resolved DS: Medications Discharge Medications Home Medications: Home Medications Medication Instructions Recorded Confirmed dulaglutide [Trulicity] 1 mg SUBCUT QWEEK 08/19/20 08/19/20 glipizide 1 tab PO DAILY 08/19/20 08/19/20 DS: Summary Hospital Course Hospital Course: 54-year-old gentleman with type 2 diabetes and prior history of buttock abscess/cellulitis. He presented with redness associated serosanguineous drainage from the right buttock. The findings were consistent with cellulitis with early abscess formation and sepsis. T area was I and D in ED and he was put on IV Vancomycin. Cultures have been negative. There has been significant improvement from the redness, no more drainage and pain has considerable reduced. He was evaluated by Surgeon Dr. Reinoso and there was no indication for further intervention. He will be discharge home with PO Doxycyline and Flagyl for 7 more days and may follow up with Dr. Reinoso. To continue all other home medications. Time Spent with Patient Time attestation: Total time spent providing and/or coordinating discharge services: Physical Exam Vital Signs: Vital Signs: Last Vital Signs Temp 98.1 F 08/22/20 07:33 Pulse 102 H 08/22/20 07:33 Resp 18 08/22/20 07:33 BP 144/87 H 08/22/20 07:33 Pulse Ox 95 08/22/20 07:33 Body Mass Index 36.9 Const: General: cooperative Orientation/consciousness: patient oriented x3 Resp: Effort & Inspection: normal respiratory effort Cardio: Rate: regular rate Rhythm: regular rhythm GI: Palpation (GI): Soft to palpation Auscultation: normal bowel sounds : Other: Left buttock area less indurated, minimal tenderness, and no drainage and no redness Skin: General skin exam: no rashes or lesions noted Neuro: General: patient oriented x3 Cognition (Neuro): normal cognition DS: Data Data Completed and Pending Labs on day of discharge: 08/19/20 20:03 CT abdomen pelvis w con Stat Acetaminophen [Tylenol] 650 mg PO ONCE ONE Clindamycin Phosphate/D5W [Cleocin] 900 mg in 50 ml IV ONCE Consult Rx Vancomycin Dosing 1 each MISCELLANE DAILY PRN Morphine Sulfate 4 mg IVPUSH ONCE ONE Piperacillin Sodium/Tazobactam [Zosyn] 3.375 gm 0.9 % Sodium Chloride [Ns] 50 ml IV ONCE ondansetron HCL [Zofran] 4 mg IVPUSH ONCE ONE vancomycin HCL 1,500 mg 0.9 % Sodium Chloride [Ns] 250 ml IV ONCE 08/19/20 20:04 ECG 12 lead EKG Stat EKG Documentation DIRECTED 08/19/20 20:22 Piperacillin Sodium/Tazobactam [Zosyn] 3.375 gm IV .STK-MED ONE 08/19/20 20:56 Lactic Acid Stat Liver Panel Stat Magnesium Stat Venous Blood Gas Stat 08/19/20 20:57 Basic Metabolic Panel Stat COVID-19 ID NOW ([facility]) Stat Complete Blood Count Auto Diff Stat Creatine Kinase Total Stat Partial Thromboplastin Time Stat Prothrombin Time INR Stat SLIDE REVIEW Stat 08/19/20 21:41 Lidocaine/Epineph/Tetracaine [LET Gel] 3 ml TOPICAL ONCE ONE 08/19/20 21:47 vancomycin HCL 750 mg IV .STK-MED ONE 08/19/20 22:22 iohexoL 350 MG/ML [Omnipaque 350 MG/ML] 100 ml IV ONCE ONE 08/19/20 22:46 Lidocaine HCl 2 % MPF [Xylocaine 2 % MPF] 5 ml SUBCUT ONCE ONE 08/19/20 23:42 Transfer Order Routine 08/20/20 01:11 vancomycin HCL 2,000 mg 0.9 % Sodium Chloride [Ns] 500 ml IV Q24H 08/20/20 01:12 Glucose, Whole Blood Routine 08/20/20 06:00 vancomycin HCL 750 mg vancomycin HCL 500 mg 0.9 % Sodium Chloride [Ns] 250 ml IV Q8H 08/20/20 06:54 Basic Metabolic Panel Routine Complete Blood Count Auto Diff Routine 08/20/20 07:44 Glucose, Whole Blood Routine 08/20/20 07:56 vancomycin HCL 500 mg IV .STK-MED ONE 08/20/20 08:00 vancomycin HCL 750 mg vancomycin HCL 500 mg 0.9 % Sodium Chloride [Ns] 250 ml IV Q8H 08/20/20 11:27 Glucose, Whole Blood Routine 08/20/20 16:26 Glucose, Whole Blood Routine 08/20/20 20:06 Glucose, Whole Blood Routine 08/20/20 23:25 Vancomycin Trough Routine 08/21/20 00:18 vancomycin HCL 500 mg IV .STK-MED ONE vancomycin HCL 750 mg IV .STK-MED ONE 08/21/20 07:34 Glucose, Whole Blood Routine 08/21/20 11:30 Glucose, Whole Blood Routine 08/21/20 15:33 Glucose, Whole Blood Routine 08/21/20 19:35 Glucose, Whole Blood Routine 08/21/20 22:48 Vancomycin Trough Routine 08/22/20 07:31 Glucose, Whole Blood Routine Laboratory Last Values WBC 13.0 X10*3/uL (4.8-10.8) H 08/20/20 06:54 RBC 4.40 X10*6/uL (4.60-5.80) L 08/20/20 06:54 Hgb 14.3 g/dl (14.0-18.0) 08/20/20 06:54 Hct 42.4 % (42-52) 08/20/20 06:54 MCV 96.4 fL (80-98) 08/20/20 06:54 MCH 32.5 pg (27.0-33.0) 08/20/20 06:54 MCHC 33.7 g/dl (31.0-36.0) 08/20/20 06:54 RDW 12.4 % (11.0-16.0) 08/20/20 06:54 Plt Count 225 X10*3/uL (160-400) 08/20/20 06:54 MPV 11.1 fL (9.4-12.4) 08/20/20 06:54 Immature Gran % (Auto) 0.2 % (0.0-0.4) 08/20/20 06:54 Neut % (Auto) 69.4 % (45-73) 08/20/20 06:54 Lymph % (Auto) 18.5 % (20-40) L 08/20/20 06:54 [place] % (Auto) 8.0 % (2-11) 08/20/20 06:54 Eos % (Auto) 3.5 % (0-4) 08/20/20 06:54 Baso % (Auto) 0.4 % (0-2) 08/20/20 06:54 Lymph # (Auto) 2.4 X10*3/uL (1.2-4.9) 08/20/20 06:54 [place] # (Auto) 1.0 X10*3/uL (0.1-1.2) 08/20/20 06:54 Eos # (Auto) 0.5 X10*3/uL (0.0-0.4) H 08/20/20 06:54 Baso # (Auto) 0.1 X10*3/uL (0.0-0.2) 08/20/20 06:54 Abs Immat Gran (auto) 0.03 X10*3/uL (0.00-0.03) 08/20/20 06:54 Absolute Neuts (auto) 9.0 X10*3/uL (2.0-8.3) H 08/20/20 06:54 Absolute Nucleated RBC 0.000 X10*3/uL (0.0-0.012) 08/20/20 06:54 Nucleated RBC % (auto) 0.0 /100WBC (0.0-0.2) 08/20/20 06:54 Smear Tech's Comments VERIFIED 08/19/20 20:57 PT 12.4 SEC (10.8-13.0) 08/19/20 20:57 INR 1.0 (0.9-1.1) 08/19/20 20:57 APTT 30.2 SEC (24.1-38.0) 08/19/20 20:57 VBG pH 7.45 (7.32-7.43) H 08/19/20 20:56 VBG pCO2 41 mmhg 08/19/20 20:56 VBG pO2 67 mmhg 08/19/20 20:56 VBG HCO3 28 mmol/L 08/19/20 20:56 VBG O2 Saturation 94.9 % 08/19/20 20:56 VBG Base Excess 3.4 mmol/L 08/19/20 20:56 Sodium 136 mmol/L (135-145) 08/20/20 06:54 Potassium 3.9 mmol/l (3.3-5.1) 08/20/20 06:54 Chloride 102 mmol/L (96-108) 08/20/20 06:54 Carbon Dioxide 27 mmol/L (22-29) 08/20/20 06:54 Anion Gap 11 (12-20) L 08/20/20 06:54 BUN 12 mg/dL (9-16) 08/20/20 06:54 Creatinine 0.87 mg/dL (0.5-1.4) 08/20/20 06:54 Estim Creat Clear Calc 126.5 08/20/20 06:54 Estimated GFR > 60 08/20/20 06:54 POC Glucose 191 mg/dL (60-115) H 08/22/20 07:31 Random Glucose 260 mg/dL (60-115) H 08/20/20 06:54 Lactic Acid 0.9 mmol/L (0.5-2.0) 08/19/20 20:56 Calcium 8.3 mg/dL (8.4-10.2) L 08/20/20 06:54 Magnesium 2.0 mg/dL (1.6-2.6) 08/19/20 20:56 Total Bilirubin 0.4 mg/dL (0.0-1.0) 08/19/20 20:56 Direct Bilirubin 0.2 mg/dL (0.0-0.5) 08/19/20 20:56 AST 10 U/L (5-37) 08/19/20 20:56 ALT 14 U/L (0-40) 08/19/20 20:56 Alkaline Phosphatase 93 U/L (39-117) 08/19/20 20:56 Total Creatine Kinase 38 U/L (38-174) 08/19/20 20:57 Total Protein 6.4 g/dL (6.5-8.0) L 08/19/20 20:56 Albumin 3.6 g/dL (3.5-5.0) 08/19/20 20:56 Urine Color YELLOW 08/20/20 01:06 Urine Appearance CLEAR 08/20/20 01:06 Urine pH 5.5 (5.0-8.0) 08/20/20 01:06 Ur Specific [place] <= 1.005 (1.005-1.025) 08/20/20 01:06 Urine Protein NEG MG/DL (NEG-TRACE) 08/20/20 01:06 Urine Glucose (UA) >=1000 MG/DL (NEG) H 08/20/20 01:06 Urine Ketones 5 MG/DL (NEG) 08/20/20 01:06 Urine Blood NEG (NEG) 08/20/20 01:06 Urine Nitrite NEG (NEG) 08/20/20 01:06 Ur Leukocyte Esterase NEG (NEG) 08/20/20 01:06 Urine RBC 0-2 /HPF (0) 08/20/20 01:06 Urine WBC 0-2 /HPF (0-4) 08/20/20 01:06 Ur Squamous Epith Cells TRACE /LPF 08/20/20 01:06 Urine Bacteria NONE /LPF 08/20/20 01:06 Vancomycin Trough 21.6 mcg/mL (10.0-20.0) H 08/21/20 22:48 COVID-19 (G[facility]VINDER) Negative (Negative) 08/19/20 20:57 COVID-19 Clin Com See Note 08/19/20 20:57 Preliminary micro results at discharge 08/19/20 20:58 Blood Culture - Preliminary Blood - Venous No growth after 48 hours. 08/19/20 20:55 Blood Culture - Preliminary Blood - Venous No growth after 48 hours. Discharge Plan Discharge Anticipated Discharge Date/Time: 08/22/20 09:44 Patient Disposition: Home, Self-Care Referrals: Cheikh Duran MD [Primary Care Provider] - Roberta Renioso MD [Physician] - 1 Week (follow-up on buttock cellulitis) Discharge Medications: New metronidazole 500 mg Tablet 500 mg PO Q12H Qty: 13 RF: 0 doxycycline hyclate 100 mg Tablet 100 mg PO Q12H Qty: 13 RF: 0 Continued glipizide 10 mg tablet extended release 24hr 1 tab PO DAILY RF: 0 Trulicity 0.75 mg/0.5 mL pen injector 1 mg subcut QWEEK RF: 0 No Action (DME) blood-glucose meter Kit See Rx Instructions ea .ROUTE DIRECTED Qty: 1 RF: 0 Discharge Orders: Discharge Order (Routine); Ordered 08/22/20 Ordered By: Osvaldo Good Diet: advance to usual diet and diabetic diet Activity on Discharge: As tolerated Visit Report Forms: Patient Portal Discharge page Care Plan Goals: Full recovery from cellulitis Health Concerns: Buttock Cellulitis Plan of Treatment: Take Doxycyline and Flagyl as doxycline and follow up with your Doctor in a week, call for appointment. Also follow up with Dr. Reinoso ([facility]) Discharge Date/Time: 08/22/20 15:09
--- NOTE | 2020-08-22 10:14 | MHC.CM.PN ---
Pt discharging home self-care, girlfriend Danica to transport. Pt denies any anticipated needs for discharge.
[2020-08-22 10:51] VITALS: BP 139/84; PULSE 95; RESP 18; TEMP 36.4; O2SAT 93
[2020-08-22 11:03] LABS: Anion Gap 11 (12-20); Blood Urea Nitrogen 10 mg/dL (9-16); Calcium 8.3 mg/dL (8.4-10.2); Carbon Dioxide 29 mmol/L (22-29); Chloride 102 mmol/L (96-108); Creatinine Clr Calc Pharmacy 119.6; Estimated Glomerular Filt Rate > 60; Glucose Random 319 mg/dL (60-115); Potassium 4.5 mmol/l (3.3-5.1); Sodium 137 mmol/L (135-145)
[2020-08-22 11:11] LABS: Glucose, Whole Blood 289 mg/dL (60-115)
[2020-08-22] MEDS: metroNIDAZOLE 500 MG TABLET PO (11:18)
== END 2020-08-22 15:09 | disposition home or self-care (01) | DRG 720 ==
LOC: HO.ED 23:00 → HO.S3 08-20 00:45
PROVIDERS: Admitting Provider Internal Medicine; Emergency Provider Emergency Medicine; PCP Internal Medicine; Visit Provider Internal Medicine
DX: A41.9 Sepsis, unspecified organism (principal); D72.89 Other specified disorders of white blood cells; F17.210 Nicotine dependence, cigarettes, uncomplicated; E66.9 Obesity, unspecified; Z68.37 Body mass index [BMI] 37.0-37.9, adult; Z71.6 Tobacco abuse counseling; L03.317 Cellulitis of buttock; L02.31 Cutaneous abscess of buttock; Z20.828 Contact with and (suspected) exposure to other viral communicable diseases; Z79.84 Long term (current) use of oral hypoglycemic drugs; Z79.899 Other long term (current) drug therapy
CPT/HCPCS: 36415; 74177; 80048; 80076; 80202; 81001; 82550; 82803; 82947; 83605; 83735; 85025; 85610; 85730; 87040; 87635; 93005; 96365; 96367; 96375; 99284; 99285; J1650; J2270; J2405; J2543; J3370; Q9967

== ENCOUNTER → 2020-09-01 13:25 | Outpatient (BNVA) | payer OTHER, SELFPAY | PROVIDERS: PCP Internal Medicine; Visit Provider Surgery | DX: L03.317 Cellulitis of buttock (principal); E11.9 Type 2 diabetes mellitus without complications | CPT/HCPCS: 99212 ==

== ENCOUNTER 2021-05-04 15:15 | Outpatient (REF) | payer OTHER, SELFPAY ==
--- NOTE | ~2021-05-04 | XR_ITS ---
EXAMINATION: XR FOOT, RIGHT CLINICAL INFORMATION: Diabetes melitis with foot ulcer. COMPARISON: None. TECHNIQUE: AP, lateral, and oblique views of the right foot. FINDINGS: No acute fracture or dislocation. No osseous erosion or periosteal reaction. No joint space narrowing or marginal osteophytes. No abnormal soft tissue calcification. XR/XR foot RT min 3V IMPRESSION: No osseous erosion or periosteal reaction to suggest acute osteomyelitis. Early osteomyelitis may be occult on plain radiographs and if there is persistent clinical concern, nuclear medicine bone scan or MRI without and with contrast could help further evaluate.
== END 2021-05-04 15:16 | disposition home or self-care (01) ==
LOC: HO.XRAY 15:15
PROVIDERS: Absent Provider Pediatrics; PCP Pediatrics; Visit Provider Internal Medicine
DX: E11.621 Type 2 diabetes mellitus with foot ulcer (principal)
CPT/HCPCS: 73630

== ENCOUNTER 2021-05-21 07:46 | Outpatient (RCR) | payer OTHER, SELFPAY | END 2021-06-25 16:05 | disposition home or self-care (01) | LOC: HO.WCC 07:46 | PROVIDERS: PCP Pediatrics; Visit Provider Physician Assistant | DX: E11.621 Type 2 diabetes mellitus with foot ulcer (principal); L97.512 Non-pressure chronic ulcer of other part of right foot with fat layer exposed; L84 Corns and callosities; F17.210 Nicotine dependence, cigarettes, uncomplicated; Z79.84 Long term (current) use of oral hypoglycemic drugs; F12.90 Cannabis use, unspecified, uncomplicated | CPT/HCPCS: 11042; 99213 ==

== ENCOUNTER 2022-03-04 14:53 | Inpatient (IN) | payer OTHER, SELFPAY ==
--- NOTE | ~2022-03-04 | US_ITS ---
EXAMINATION: NONINVASIVE ASSESSMENT OF THE ARTERIES OF BOTH LOWER EXTREMITIES INCLUDING PVR EXAM AND BILATERAL LOWER EXTREMITY DUPLEX CLINICAL INFORMATION: Ulcer COMPARISON: None TECHNIQUE: Ankle pulse volume recordings, ankle pressure measurements and ankle brachial indices were obtained of the lower extremity arterial system bilaterally in addition to duplex Doppler techniques with wave form analysis and measurement of velocities in the common femoral, profunda femoral, superficial femoral, popliteal, tibial and peroneal arteries. The study was performed only at rest. FINDINGS: RIGHT LEG 1. Right Ankle-Brachial Index: 1.2 (higher of the DP/PT) >0.97-1.25 = normal - no significant arterial disease 0.75-0.96 = mild peripheral arterial disease 0.5-0.74 = moderate peripheral arterial disease <0.50 = severe peripheral arterial disease <0.30 = critical arterial disease 2. Segmental Pressures (mmHg): Brachial: 145 Ankle: PT 174, DP 147 3. PVR Waveforms: Ankle: Abnormal, no dicrotic notch 4. Direct Duplex: Common femoral artery: 113 cm/s, Multiphasic Profunda femoris artery: 87.9 cm/s, Multiphasic Superficial femoral artery (proximal): 137 cm/s, Multiphasic Superficial femoral artery (mid): 94.4 cm/s, Multiphasic Superficial femoral artery (distal): 62.1 cm/s, Multiphasic Proximal Popliteal artery: 89.7 cm/s, Multiphasic Distal popliteal artery: 75 cm/s, Multiphasic Mid posterior tibial artery: 157 cm/s, approximately the waveform is multiphasic. At the distal aspect there is questionable loss of diastolic flow reversal which would qualify as a monophasic waveform Peroneal artery: 72.7 cm/s, Multiphasic LEFT LE. Left Ankle-Brachial Index: 1.24 (higher of the DP/PT) >0.97-1.25 = normal - no significant arterial disease 0.75-0.96 = mild peripheral arterial disease 0.5-0.74 = moderate peripheral arterial disease <0.50 = severe peripheral arterial disease <0.30 = critical arterial disease 2. Segmental Pressures: Brachial: 141 Ankle: PT 174, DP 180 3. PVR Waveforms: Ankle: Abnormal, no dicrotic notch 4. Direct Duplex: Common femoral artery: 220 cm/s, Multiphasic Profunda femoris artery: 231 cm/s, Multiphasic Superficial femoral artery (proximal): 139 cm/s, Multiphasic Superficial femoral artery (mid): 104 cm/s, Multiphasic Superficial femoral artery (distal): 49.9 cm/s, Multiphasic Proximal Popliteal artery: 62.9 cm/s, Multiphasic Distal popliteal artery: 80.9 cm/s, Multiphasic Mid posterior tibial artery: 97.3 cm/s, Multiphasic Peroneal artery: 63.3 cm/s, Multiphasic US/US arterial duplex LE BI IMPRESSION: ELIZABETH on the right is 1.2 and ELIZABETH of the left is 1.24. Loss of dicrotic notch on PVR waveforms. On the right there is multiphasic flow throughout the lower extremity, though there is possible loss of diastolic flow reversal at the distal aspect of the posterior tibial artery which may represent some degree of distal peripheral arterial disease. Comparison with toe brachial indices may be helpful. On the left there is elevated velocity within the common femoral and profunda femoris arteries which may be suggestive of some degree arterial disease, though there is multiphasic flow. Decreased velocity at the level of the distal superficial femoral artery may suggest some degree of disease at the mid femoral.
--- NOTE | ~2022-03-04 | XR_ITS ---
EXAMINATION: XR FOOT, RIGHT CLINICAL INFORMATION: Possible osteomyelitis COMPARISON: 05/04/2021 TECHNIQUE: AP, lateral, and oblique views of the right foot. FINDINGS: The does appear to be a soft tissue defect and soft tissue swelling in the lateral aspect of the forefoot in the region of the fifth MTP joint. There is associated focal osteopenia along the fifth metatarsal head new from the prior study. Subtle osteomyelitis cannot be excluded in this setting. I do not appreciate any cortical disruption or bony destructive lesion. No fracture or dislocation. No significant soft tissue gas. XR/XR foot RT 2V IMPRESSION: Suggestion of a soft tissue ulcer and adjacent soft tissue edema on the lateral aspect of the forefoot. There is associated new osteopenia of the fifth metatarsal head abutting the fifth MTP joint. Early sequela of osteomyelitis could have this appearance. No acute fracture or dislocation.
[2022-03-04 15:11] VITALS: BP 88/67; PULSE 119; RESP 18; TEMP 36.6; O2SAT 99; BMI 34.8
[2022-03-04 16:02] VITALS: BP 103/65; PULSE 110; O2SAT 95
[2022-03-04 16:42] VITALS: BP 118/66; PULSE 110; RESP 16; TEMP 36.5; O2SAT 98
--- NOTE | 2022-03-04 16:42 | ED.WOUNDLAC ---
HPI - Wound/Laceration General Chief Complaint: Wound/Laceration Stated Complaint: Abscess R foot Time Seen by Provider: 03/04/22 16:06 Source: patient Mode of arrival: ambulatory Limitations: no limitations History of Present Illness HPI narrative: Patient comes to the emergency room complaining of a diabetic wound/ulcer to the lateral aspect of the right foot. Patient states that it has been present for several months. Patient [facility] to [facility] and initially started healing well. However, over the last month, the wound has been getting bigger, and lately he noticed that the dorsum of the right foot is swollen, erythematous, and the ulcer is very painful to touch, there is a foul smell coming from it. Patient denies fever or chills Related Data Home Medications Medication Instructions Recorded Confirmed dulaglutide 0.75 mg/0.5 mL 1 mg subcut QWEEK 08/19/20 09/01/20 subcutaneous pen injector (Trulicity) glipizide 10 mg tablet, extended 1 tab PO DAILY 08/19/20 09/01/20 release 24 hr blood-glucose meter #1 ea 09/01/20 09/01/20 Previous Rx's Medication Instructions Recorded doxycycline hyclate 100 mg tablet 100 mg PO Q12H #13 tabs 08/22/20 metronidazole 500 mg tablet 500 mg PO Q12H #13 tabs 08/22/20 Allergies Allergy/AdvReac Type Severity Reaction Status Date / Time No Known Allergies Allergy Verified 09/01/20 14:12 [No Known Allergies*] Review of Systems Review of Systems: Constitutional : No Weight loss, No Fever, No Chills, No Night Sweats, No Fatigue, No Malaise ENT/Mouth : No Hearing loss, No Ear Pain, No Nasal Congestion, No Sinus Pain, No Hoarseness, No sore throat, No Rhinorrhea, No Swallowing Difficulty Eyes: No Eye Pain, No Swelling, No Redness, No Foreign Body, No Discharge, No Vision Changes Cardiovascular : No Chest Pain, No SOB, No Dyspnea on Exertion, No Orthopnea, No Edema, No Palpitations Respiratory : No Cough, No Sputum, No Wheezing, No Smoke Exposure, No Dyspnea Gastrointestinal : No Nausea, No Vomiting, No Diarrhea, No Constipation, No abdominal Pain, No Hematochezia, No Melena Genitourinary : no irregular bleeding, No Dysuria, No Urinary Frequency, No Hematuria, No Urinary Incontinence, No Urgency, No Flank Pain, No Urinary Flow Changes, No Hesitancy Musculoskeletal : No joint pain, No Myalgias, No Joint Swelling Skin : Diabetic foot ulcer on the right foot, erythema in the foot Neuro : No Weakness, No Numbness, No Paresthesias, No Loss of Consciousness, No Dizziness, No Headache Psych : No Anxiety/Panic, No Depression, No SI/HI/AH/VH, No Social Issues, Heme/Lymph: No Bruising, No Bleeding,No Lymphadenopathy Endocrine : No Polyuria, No Polydipsia, No Temperature Intolerance [facility] Past Medical History Medical History Adopted Diabetes HTN (hypertension) Necrotizing fasciitis Surgical History History of incision and drainage Family History Family History Mother No problems noted. Father No problems noted. Social History Social History Household Members: Significant Other Housing: Apartment Alcohol intake: current Alcohol intake frequency: holidays/special occasions only Cigarettes Per Day: 0.5 Second Hand Smoke Exposure: No Substance Use Type: Marijuana Advance Directives: No Advance Directives Information Provided: No service: No Current occupational status: employed Physical Exam Vital Signs: Vital Signs: Last Vital Signs Temp 97.7 F 03/04/22 16:42 Pulse 110 H 03/04/22 16:42 Resp 16 03/04/22 16:42 BP 118/66 03/04/22 16:42 Pulse Ox 98 03/04/22 16:42 O2 Del Method 03/04/22 16:42 BMI result Body Mass Index 34.8 Const: Other: Appearance: Alert. Oriented X3. No acute distress. Eyes: Pupils equal, round and reactive to light. ENT: Pharynx normal. Neck: Normal inspection. Neck supple. No lymph nodes noted. No crepitus CVS: Normal heart rate and rhythm. Pulses normal. Normal S1 and S2 Respiratory: No respiratory distress. Breath sounds normal. No Wheezing. No rales Abdomen: Soft and nontender. No rigidity. No distention. Skin: Skin warm and dry. Normal skin color. Normal skin turgor. Extremities: No lower extremity edema. No Lacerations. No Rash Neuro: Oriented X 3. No motor deficit. No sensory deficit. Moving all extremities. No slurred speech. CN 2 through 12 grossly intact Psych: calm, cooperative, normal affect Course Course Course Narrative: Patient's labs, x-rays pending X-ray of the foot shows possible early sequela of osteomyelitis. White blood cell count is 17.7 which is more elevated than his usual baseline. Rest of labs are still pending. Patient is already being treated with IV fluids, vancomycin and Zosyn. Blood pressure 118/66, sepsis not suspected at this time. X-ray shows possible initial sequela of osteomyelitis. Patient being admitted, patient discussed with Dr. Mendoza [facility] - Wound/Laceration Lab Data Result diagrams: 03/04/22 17:30 03/04/22 17:57 Labs: Lab Results 03/04/22 03/04/22 03/04/22 Range/Units 17:25 17:30 17:30 WBC 17.7 H (4.8-10.8) X10*3/uL RBC 5.25 (4.60-5.80) X10*6/uL Hgb 16.8 (14.0-18.0) g/dl Hct 49.1 (42.0-52.0) % MCV 93.5 (80.0-98.0) fL MCH 32.0 (27.0-33.0) pg MCHC 34.2 (31.0-36.0) g/dl RDW 13.6 (11.0-16.0) % Plt Count 298 (160-400) X10*3/uL MPV 10.4 (9.4-12.4) fL Immature Gran % (Auto) 0.3 (0.0-0.4) % Neut % (Auto) 72.8 (45-73) % Lymph % (Auto) 17.1 L (20-40) % Sac % (Auto) 7.9 (2-11) % Eos % (Auto) 1.6 (0-4) % Baso % (Auto) 0.3 (0-2) % Lymph # (Auto) 3.0 (1.2-4.9) X10*3/uL Sac # (Auto) 1.4 H (0.1-1.2) X10*3/uL Eos # (Auto) 0.3 (0.0-0.4) X10*3/uL Baso # (Auto) 0.1 (0.0-0.2) X10*3/uL Abs Immat Gran (auto) 0.06 H (0.00-0.03) X10*3/uL Absolute Neuts (auto) 12.9 H (2.0-8.3) x10*3/uL Absolute Nucleated RBC 0.000 (0.0-0.012) X10*3/uL Nucleated RBC % (auto) 0.0 (0.0-0.2) /100WBC ESR 19 H (0-15) MM/HR Sodium (135-145) mmol/L Potassium (3.3-5.1) mmol/L Chloride (96-108) mmol/L Carbon Dioxide (22-29) mmol/L Anion Gap (12-20) BUN (9-16) mg/dL Creatinine (0.5-1.4) mg/dL Estim Creat Clear Calc Estimated GFR Random Glucose (60-115) mg/dL Lactic Acid (0.5-2.0) mmol/L Calcium (8.4-10.2) mg/dL Total Bilirubin (0.0-1.0) mg/dL Direct Bilirubin (0.0-0.5) mg/dL AST (5-37) U/L ALT (0-40) U/L Alkaline Phosphatase (39-117) U/L C-Reactive Protein (< or = 0.50) mg/dL Total Protein (6.5-8.0) g/dL Albumin (3.5-5.0) g/dL COVID-19 ([facility]URVINDER) Negative (Negative) COVID-19 Clin Com See Note 03/04/22 03/04/22 Range/Units 17:30 17:57 WBC (4.8-10.8) X10*3/uL RBC (4.60-5.80) X10*6/uL Hgb (14.0-18.0) g/dl Hct (42.0-52.0) % MCV (80.0-98.0) fL MCH (27.0-33.0) pg MCHC (31.0-36.0) g/dl RDW (11.0-16.0) % Plt Count (160-400) X10*3/uL MPV (9.4-12.4) fL Immature Gran % (Auto) (0.0-0.4) % Neut % (Auto) (45-73) % Lymph % (Auto) (20-40) % Sac % (Auto) (2-11) % Eos % (Auto) (0-4) % Baso % (Auto) (0-2) % Lymph # (Auto) (1.2-4.9) X10*3/uL Sac # (Auto) (0.1-1.2) X10*3/uL Eos # (Auto) (0.0-0.4) X10*3/uL Baso # (Auto) (0.0-0.2) X10*3/uL Abs Immat Gran (auto) (0.00-0.03) X10*3/uL Absolute Neuts (auto) (2.0-8.3) x10*3/uL Absolute Nucleated RBC (0.0-0.012) X10*3/uL Nucleated RBC % (auto) (0.0-0.2) /100WBC ESR (0-15) MM/HR Sodium 138 (135-145) mmol/L Potassium 4.5 (3.3-5.1) mmol/L Chloride 106 (96-108) mmol/L Carbon Dioxide 24 (22-29) mmol/L Anion Gap 13 (12-20) BUN 22 H (9-16) mg/dL Creatinine 0.98 (0.5-1.4) mg/dL Estim Creat Clear Calc 106.5 Estimated GFR > 60 Random Glucose 204 H D (60-115) mg/dL Lactic Acid 1.2 (0.5-2.0) mmol/L Calcium 9.2 D (8.4-10.2) mg/dL Total Bilirubin 0.4 (0.0-1.0) mg/dL Direct Bilirubin 0.2 (0.0-0.5) mg/dL AST 13 (5-37) U/L ALT 26 (0-40) U/L Alkaline Phosphatase 108 (39-117) U/L C-Reactive Protein 3.48 H (< or = 0.50) mg/dL Total Protein 6.8 (6.5-8.0) g/dL Albumin 3.8 (3.5-5.0) g/dL COVID-19 (GURVINDER) (Negative) COVID-19 Clin Com Discharge Plan Discharge Clinical Impression: Osteomyelitis of foot Patient Disposition: Admitted As Inpatient Prescriptions: No Action glipizide 10 mg tablet extended release 24hr 1 tab PO DAILY Trulicity 0.75 mg/0.5 mL pen injector 1 mg subcut QWEEK metronidazole 500 mg Tablet 500 mg PO Q12H Qty: 13 0RF doxycycline hyclate 100 mg Tablet 100 mg PO Q12H Qty: 13 0RF (DME) blood-glucose meter Kit See Rx Instructions .ROUTE DIRECTED Qty: 1 Rx Instructions: As directed
[2022-03-04 17:33] LABS: MANUAL DIFF FLAG NO
[2022-03-04 17:36] LABS: Basophils Absolute Auto 0.1 X10*3/uL (0.0-0.2); Basophils Percent Auto 0.3 % (0-2); Eosinophils Absolute Auto 0.3 X10*3/uL (0.0-0.4); Eosinophils Percent Auto 1.6 % (0-4); Hematocrit 49.1 % (42.0-52.0); Hemoglobin 16.8 g/dl (14.0-18.0); Imm Gran Abs Auto 0.06 X10*3/uL (0.00-0.03); Imm Gran Pct Auto 0.3 % (0.0-0.4); Lymphocytes Percent Auto 17.1 % (20-40); Mean Corpuscular HGB Conc 34.2 g/dl (31.0-36.0); Mean Corpuscular Volume 93.5 fL (80.0-98.0); Mean Platelet Volume 10.4 fL (9.4-12.4); Monocytes Absolute Auto 1.4 X10*3/uL (0.1-1.2); Monocytes Percent Auto 7.9 % (2-11); Neutrophils Absolute Auto 12.9 x10*3/uL (2.0-8.3); Neutrophils Percent Auto 72.8 % (45-73); Platelet Count 298 X10*3/uL (160-400); Red Blood Count 5.25 X10*6/uL (4.60-5.80); Red Cell Distribution Width 13.6 % (11.0-16.0); White Blood Count 17.7 X10*3/uL (4.8-10.8)
[2022-03-04 17:47] LABS: Lactic Acid 1.2 mmol/L (0.5-2.0)
[2022-03-04 17:50] LABS: COVID-19 Test Negative (Negative); IDNOW Serial# 16C4AD1C
[2022-03-04] MEDS: Piperacillin Sodium/Tazobactam 3.375 GM in 0.9 % Sodium Chloride 50 ML IV (18:04)
[2022-03-04] MEDS: 0.9 % Sodium Chloride 1,000 ML 999 ML IVCONT (18:16)
[2022-03-04 18:25] LABS: Alanine Aminotransferase 26 U/L (0-40); Albumin Level 3.8 g/dL (3.5-5.0); Alkaline Phosphatase 108 U/L (39-117); Anion Gap 13 (12-20); Aspartate Amino Transferase 13 U/L (5-37); Bilirubin Direct 0.2 mg/dL (0.0-0.5); Bilirubin Total 0.4 mg/dL (0.0-1.0); Blood Urea Nitrogen 22 mg/dL (9-16); C Reactive Protein 3.48 mg/dL (< or = 0.50); Calcium 9.2 mg/dL (8.4-10.2); Carbon Dioxide 24 mmol/L (22-29); Chloride 106 mmol/L (96-108); Creatinine Clr Calc Pharmacy 106.5; Estimated Glomerular Filt Rate > 60; Glucose Random 204 mg/dL (60-115); Potassium 4.5 mmol/L (3.3-5.1); Sodium 138 mmol/L (135-145); Total Protein 6.8 g/dL (6.5-8.0)
[2022-03-04 19:08] LABS: Erythrocyte Sedimentation Rate 19 MM/HR (0-15)
--- NOTE | 2022-03-04 20:56 | PHA.MEDREC ---
Pharmacy Consult ? Medication Reconciliation Pharmacy has completed the medication reconciliation.
--- NOTE | 2022-03-04 21:29 | PM.IMHP ---
History of Present Illness Date of Service: 03/04/22 Chief Complaint: right foot pain /ulcer 56-year-old male with a past medical history of hypertension, hyperlipidemia, diabetes, CAD status post CABG in August 2021; presented to the hospital today with a chief complaint of right foot pain redness and swelling. Patient reports that he has been having right foot ulcer for many weeks. Over the past 3 weeks he has been having increased pain, redness, swelling. Reports he has occasional mild discharge on the socks. Mentioned that he [facility] and has regular wound dressings. But over the past 3 weeks he noticed that ulcer has been worsening. Hence decided to come to the ER for further evaluation. Patient denies any fever chills cough, denies any chest pain palpitations lightheadedness or dizziness. Denies any GI symptoms. Review of all other systems is negative except mentioned above ER course: Per ER team patient noted to have right foot dorsum erythema, and plantar surface ulcer. X-rays considered with possible osteomyelitis. Patient was given antibiotics. Admitted for further management. [facility] Medical History Adopted Diabetes HTN (hypertension) Necrotizing fasciitis PAD (peripheral artery disease) Family History Mother No problems noted. Father No problems noted. Pertinent family history: patient is adopted- unknown family history Surgical History History of incision and drainage Social History (Updated 03/21/22 @ 09:11 by CARMEN Hernandez) Household Members: Significant Other Housing: Apartment Do you presently have visiting nurse or other home services: No Alcohol intake: current Alcohol intake frequency: holidays/special occasions only Patient Tobacco Use Status: Former Tobacco user Cigarettes Per Day: 0.5 Second Hand Smoke Exposure: No Substance Use Type: Marijuana service: No Current occupational status: disabled Meds Allergies Allergy/AdvReac Type Severity Reaction Status Date / Time No Known Allergies Allergy Verified 03/21/22 09:10 [No Known Allergies*] Active Medications: Current Medications Acetaminophen (Acetaminophen 325 Mg Tablet) 650 mg PO Q6H PRN PRN Reason: Pain, Mild (Pain Scale 1-3) Melatonin (Melatonin 3 Mg Tablet) 6 mg PO BEDTIME PRN PRN Reason: Insomnia Senna (Sennosides 8.6 Mg Tablet) 17.2 mg PO BEDTIME PRN PRN Reason: Constipation Sodium Chloride (0.9 % Sodium Chloride Flush 3 Ml Syringe) 3 ml IVFLUSH QSHIFT [facility] Home Medications Medication Instructions Recorded Confirmed Last Taken Type dulaglutide 0.75 mg/0.5 mL 0.75 mg subcut HUSAIN@0900 08/19/20 03/04/22 02/24/22 History subcutaneous pen injector (Trulicity) glipizide 10 mg tablet, extended 1 tab PO DAILY 08/19/20 03/04/22 03/03/22 History release 24 hr blood-glucose meter #1 ea 09/01/20 09/01/20 Unknown History aspirin 81 mg tablet,delayed 1 tab PO DAILY 03/04/22 03/04/22 03/03/22 History release atorvastatin 80 mg tablet 1 tab PO BEDTIME 03/04/22 03/04/22 03/03/22 History clopidogrel 75 mg tablet 1 tab PO QAM 03/04/22 03/04/22 03/03/22 History empagliflozin 25 mg tablet 1 tab QAM 03/04/22 03/04/22 03/03/22 History (Jardiance) furosemide 40 mg tablet 1 tab PO QAM 03/04/22 03/04/22 03/03/22 History valsartan 40 mg tablet 1 tab PO DAILY 03/04/22 03/04/22 03/03/22 History Physical Exam Vital Signs and Narrative: Vital Signs: Last Vital Signs Temp 97.7 F 03/04/22 16:42 Pulse 110 H 03/04/22 16:42 Resp 16 03/04/22 16:42 BP 118/66 03/04/22 16:42 Pulse Ox 98 03/04/22 16:42 O2 Del Method 03/04/22 16:42 BMI result Body Mass Index 34.8 Gen: Appears be in no acute distress HEENT: NCAT, Moist mucosa. Pulmonary: Vesicular breath sounds, fair air entry CVS: Normal S1-S2 Abdomen: BS+, Soft, Nontender Extremities: Warm well perfused; noted to have open wound on the plantar surface of the right foot; mild erythema noted on the dorsum of the right foot, warm, tender. No crepitus. Shown in picture below Neuro: Alert and awake. Results Labs CBC and Chem 7: 03/08/22 05:55 03/08/22 05:55 Labs: Laboratory Results - last 24 hr 03/04/22 03/04/22 03/04/22 17:25 17:30 17:30 MCV 93.5 MCH 32.0 MCHC 34.2 RDW 13.6 Plt Count 298 MPV 10.4 Immature Gran % (Auto) 0.3 Neut % (Auto) 72.8 Lymph % (Auto) 17.1 L [place] % (Auto) 7.9 Eos % (Auto) 1.6 Baso % (Auto) 0.3 Lymph # (Auto) 3.0 [place] # (Auto) 1.4 H Eos # (Auto) 0.3 Baso # (Auto) 0.1 Abs Immat Gran (auto) 0.06 H Absolute Neuts (auto) 12.9 H Absolute Nucleated RBC 0.000 Nucleated RBC % (auto) 0.0 ESR 19 H Anion Gap Estim Creat Clear Calc Estimated GFR Random Glucose Lactic Acid Calcium Total Bilirubin Direct Bilirubin AST ALT Alkaline Phosphatase C-Reactive Protein Total Protein Albumin COVID-19 (GURVINDER) Negative COVID-19 Clin Com See Note 03/04/22 03/04/22 17:30 17:57 MCV MCH MCHC RDW Plt Count MPV Immature Gran % (Auto) Neut % (Auto) Lymph % (Auto) [place] % (Auto) Eos % (Auto) Baso % (Auto) Lymph # (Auto) [place] # (Auto) Eos # (Auto) Baso # (Auto) Abs Immat Gran (auto) Absolute Neuts (auto) Absolute Nucleated RBC Nucleated RBC % (auto) ESR Anion Gap 13 Estim Creat Clear Calc 106.5 Estimated GFR > 60 Random Glucose 204 H D Lactic Acid 1.2 Calcium 9.2 D Total Bilirubin 0.4 Direct Bilirubin 0.2 AST 13 ALT 26 Alkaline Phosphatase 108 C-Reactive Protein 3.48 H Total Protein 6.8 Albumin 3.8 COVID-19 (GURVINDER) COVID-19 Clin Com Imaging Radiologist's Impressions: Impressions Foot X-Ray 03/04/22 17:00 IMPRESSION: Suggestion of a soft tissue ulcer and adjacent soft tissue edema on the lateral aspect of the forefoot. There is associated new osteopenia of the fifth metatarsal head abutting the fifth MTP joint. Early sequela of osteomyelitis could have this appearance. No acute fracture or dislocation. Assessment and Plan (1) Osteomyelitis of foot: Status: Acute Plan 56-year-old male with a past medical history of hypertension, hyperlipidemia, diabetes, CAD status post CABG in August 2021; presented to the hospital today with a chief complaint of right foot pain redness and swelling. Noted to have right foot diabetic foot ulcer with cellulitis and concerns for osteomyelitis. Admitted for further management. Right diabetic foot ulcer/cellulitis/ osteomyelitis: Continue IV vancomycin and Zosyn. Id and General surgery consult for further recommendations X-rays concerning for osteomyelitis. History of diabetes: Continue insulin sliding scale. hold home glipizide , Jardiance. History of hypertension/hyperlipidemia: Continue home valsartan/ losartan History of CAD status post CABG: Continue home aspirin/statin. DVT prophylaxis: Lovenox Code status: Full code Quality Stroke Does the patient have a stroke diagnosis?: No VTE Prior VTE?: No VTE Risk Level:: Medical - moderate - high VTE Device Contraindication: Treatment Not Indicated VTE Drug Contraindication: N/A - Med Ordered
--- NOTE | 2022-03-04 22:06 | PHA.PROG ---
Admission Date/Time: March 04, 2022 20:19 Indication: Cellulitis/Diabetic foot infection, osteo Weight in k.398 kg Adjusted body weight in K.54 [place] body weight in Kg: Obesity Dosing Indication % IBW: Serum Creatinine - Last 168 Hours 03/04/22 17:57 Creatinine 0.98 Estimated CrCl and GFR - Last 168 Hours 03/04/22 17:57 Estim Creat Clear Calc 106.5 Estimated GFR > 60 Vancomycin Loading Dose: 2000 mg Current Vancomycin Dosing Regimen: 1250 mg x1, then 1000 mg q12 Vancomycin Monitoring using AUC goal of 400 - 600 range with trough as surrogate marker: 500/14.4 Date and Time for next Vancomycin Level to be drawn:03/06 @0500 Pharmacist Comments on Vancomycin Plan: plan to give a 1 x higher dose to get pt therapeutic. depending on renal function/ clearance may need to increase dose. Vancomycin dosing will take advantage of [employer] as a clinical decision support tool that uses Bayesian modeling to calculate individual patient's pharmacokinetic parameters and forecast the patient's drug concentration time course with the target goal AUC 24 range of 400 - 600 mg/L/hr.
[2022-03-05 00:42] VITALS: BP 132/72; PULSE 104; RESP 18; O2SAT 100
[2022-03-05] MEDS: Piperacillin Sodium/Tazobactam 3.375 GM in 0.9 % Sodium Chloride 50 ML IV ×4 (03:11→17:46)
[2022-03-05] MEDS: 0.9 % Sodium Chloride Flush 3 ML SYRINGE IVFLUSH ×3 (03:11→22:57)
[2022-03-05] MEDS: Acetaminophen 325 MG TABLET 650 MG PO ×2 (04:42→12:47)
[2022-03-05] MEDS: Enoxaparin Sodium 40 MG/0.4 ML SYRINGE SUBCUT (04:43)
[2022-03-05 07:11] LABS: MANUAL DIFF FLAG NO
[2022-03-05 07:15] LABS: Basophils Percent Auto 0.3 % (0-2); Eosinophils Absolute Auto 0.4 X10*3/uL (0.0-0.4); Eosinophils Percent Auto 2.8 % (0-4); Hematocrit 46.4 % (42.0-52.0); Hemoglobin 15.7 g/dl (14.0-18.0); Imm Gran Abs Auto 0.05 X10*3/uL (0.00-0.03); Imm Gran Pct Auto 0.3 % (0.0-0.4); Lymphocytes Absolute Auto 1.4 X10*3/uL (1.2-4.9); Lymphocytes Percent Auto 9.4 % (20-40); Mean Corpuscular HGB Conc 33.8 g/dl (31.0-36.0); Mean Corpuscular Hemoglobin 32.1 pg (27.0-33.0); Mean Corpuscular Volume 94.9 fL (80.0-98.0); Mean Platelet Volume 10.2 fL (9.4-12.4); Monocytes Absolute Auto 0.9 X10*3/uL (0.1-1.2); Monocytes Percent Auto 6.2 % (2-11); Platelet Count 240 X10*3/uL (160-400); Red Blood Count 4.89 X10*6/uL (4.60-5.80); Red Cell Distribution Width 13.7 % (11.0-16.0); White Blood Count 14.8 X10*3/uL (4.8-10.8)
[2022-03-05 07:28] LABS: Anion Gap 11 (12-20); Blood Urea Nitrogen 21 mg/dL (9-16); Calcium 8.3 mg/dL (8.4-10.2); Carbon Dioxide 23 mmol/L (22-29); Chloride 108 mmol/L (96-108); Creatinine Clr Calc Pharmacy 100.3; Estimated Glomerular Filt Rate > 60; Glucose Random 254 mg/dL (60-115); Potassium 4.4 mmol/L (3.3-5.1); Sodium 138 mmol/L (135-145)
[2022-03-05 07:52] VITALS: BP 97/64; PULSE 108; RESP 18; TEMP 36.4; O2SAT 95
[2022-03-05 08:00] VITALS: BP 132/60; PULSE 95; RESP 18; TEMP 36.6; O2SAT 97
[2022-03-05 08:02] LABS: Glucose, Whole Blood 237 mg/dL (60-115)
[2022-03-05] MEDS: vancomycin HCL 1,250 MG in 0.9 % Sodium Chloride 250 ML 166.67 MG IV (11:27)
[2022-03-05] MEDS: Aspirin Enteric Coated 81 MG TABLET.DR PO (11:27)
[2022-03-05 11:28] VITALS: BP 120/75; PULSE 105; RESP 18; TEMP 36.4; O2SAT 95
[2022-03-05] MEDS: Clopidogrel Bisulfate 75 MG TABLET PO (11:28)
[2022-03-05] MEDS: Valsartan 40 MG TABLET PO (11:28)
[2022-03-05] MEDS: Furosemide 40 MG TABLET PO (11:28)
[2022-03-05 11:34] LABS: Glucose, Whole Blood 198 mg/dL (60-115)
[2022-03-05] MEDS: Insulin Lispro 100 UNIT/ML 3 ML VIAL SUBCUT ×3 (12:47→22:55)
--- NOTE | 2022-03-05 13:19 | HO.PM.IMPN ---
Subjective Subjective Date of Service: 03/05/22 Physical Exam Vital Signs: Vital Signs: Last Vital Signs Temp 97.6 F 03/05/22 11:28 Pulse 105 H 03/05/22 11:28 Resp 18 03/05/22 11:28 BP 120/75 03/05/22 11:28 Pulse Ox 95 03/05/22 11:28 O2 Del Method 03/05/22 11:28 BMI result Body Mass Index 34.8 Objective Data Active Medications Acetaminophen (Acetaminophen 325 Mg Tablet) 650 mg PO Q6H PRN PRN Reason: Pain, Mild (Pain Scale 1-3) Last Admin: 03/05/22 12:47 Dose: 650 mg Documented By: BREN Aspirin (Aspirin Enteric Coated 81 Mg Tablet.Dr) 81 mg PO DAILY COUNTS INCLUDE 234 BEDS AT THE [facility] Last Admin: 03/05/22 11:27 Dose: 81 mg Documented By: BREN Atorvastatin Calcium (Atorvastatin Calcium 80 Mg Tablet) 80 mg PO BEDTIME SOTO Clopidogrel Bisulfate (Clopidogrel Bisulfate 75 Mg Tablet) 75 mg PO DAILY COUNTS INCLUDE 234 BEDS AT THE [facility] Last Admin: 03/05/22 11:28 Dose: 75 mg Documented By: BREN Dextrose (Dextrose 50 % 25 Gm/50 Ml Syringe) 25 gm IVPUSH Q15M PRN; Protocol PRN Reason: per Hypoglycemia Standing Ord. Enoxaparin Sodium (Enoxaparin Sodium 40 Mg/0.4 Ml Syringe) 40 mg SUBCUT Q24H COUNTS INCLUDE 234 BEDS AT THE [facility] Last Admin: 03/05/22 04:43 Dose: 40 mg Documented By: DIVYA Furosemide (Furosemide 40 Mg Tablet) 40 mg PO DAILY COUNTS INCLUDE 234 BEDS AT THE [facility]; Protocol Last Admin: 03/05/22 11:28 Dose: 40 mg Documented By: BREN Glucose (Glucose Gel 15 Gm Gel..Gram.) 15 gm PO Q15M PRN; Protocol PRN Reason: per Hypoglycemia Standing Ord. Piperacillin Sod/Tazobactam (Sod 3.375 gm/ Sodium Chloride) 50 mls @ 100 mls/hr IV Q6H COUNTS INCLUDE 234 BEDS AT THE [facility] Last Infusion: 03/05/22 10:05 Dose: 0 mls/hr Documented By: BREN Vancomycin HCl 1,000 mg/ (Sodium Chloride) 270 mls @ 270 mls/hr IV Q12H COUNTS INCLUDE 234 BEDS AT THE [facility] Insulin Human Lispro (Insulin Lispro 100 Unit/Ml 3 Ml Vial) 0 unit SUBCUT QIDACHS COUNTS INCLUDE 234 BEDS AT THE [facility]; Protocol Last Admin: 03/05/22 12:47 Dose: 2 unit Documented By: BREN Melatonin (Melatonin 3 Mg Tablet) 6 mg PO BEDTIME PRN PRN Reason: Insomnia Pharmacy Consult (Consult Rx Vancomycin Dosing) 1 each MISCELLANE DAILY PRN PRN Reason: Consult order Senna (Sennosides 8.6 Mg Tablet) 17.2 mg PO BEDTIME PRN PRN Reason: Constipation Sodium Chloride (0.9 % Sodium Chloride Flush 3 Ml Syringe) 3 ml IVFLUSH QSHIFT SOTO Last Admin: 03/05/22 10:05 Dose: Not Given Documented By: BREN Non-Admin Reason: in ed Valsartan (Valsartan 40 Mg Tablet) 40 mg PO DAILY COUNTS INCLUDE 234 BEDS AT THE [facility]; Protocol Last Admin: 03/05/22 11:28 Dose: 40 mg Documented By: BREN Labs CBC & Chem 7: 03/05/22 07:07 03/05/22 07:07 Labs: Laboratory Results - last 24 hr 03/04/22 03/04/22 03/04/22 17:25 17:30 17:30 MCV 93.5 MCH 32.0 MCHC 34.2 RDW 13.6 Plt Count 298 MPV 10.4 Immature Gran % (Auto) 0.3 Neut % (Auto) 72.8 Lymph % (Auto) 17.1 L [place] % (Auto) 7.9 Eos % (Auto) 1.6 Baso % (Auto) 0.3 Lymph # (Auto) 3.0 [place] # (Auto) 1.4 H Eos # (Auto) 0.3 Baso # (Auto) 0.1 Abs Immat Gran (auto) 0.06 H Absolute Neuts (auto) 12.9 H Absolute Nucleated RBC 0.000 Nucleated RBC % (auto) 0.0 ESR 19 H Anion Gap Estim Creat Clear Calc Estimated GFR POC Glucose Random Glucose Lactic Acid Calcium Total Bilirubin Direct Bilirubin AST ALT Alkaline Phosphatase C-Reactive Protein Total Protein Albumin COVID-19 (GURVINDER) Negative COVID-19 Clin Com See Note 03/04/22 03/04/22 03/05/22 17:30 17:57 07:07 MCV 94.9 MCH 32.1 MCHC 33.8 RDW 13.7 Plt Count 240 MPV 10.2 Immature Gran % (Auto) 0.3 Neut % (Auto) 81.0 H Lymph % (Auto) 9.4 L [place] % (Auto) 6.2 Eos % (Auto) 2.8 Baso % (Auto) 0.3 Lymph # (Auto) 1.4 [place] # (Auto) 0.9 Eos # (Auto) 0.4 Baso # (Auto) 0.0 Abs Immat Gran (auto) 0.05 H Absolute Neuts (auto) 12.0 H Absolute Nucleated RBC 0.000 Nucleated RBC % (auto) 0.0 ESR Anion Gap 13 Estim Creat Clear Calc 106.5 Estimated GFR > 60 POC Glucose Random Glucose 204 H D Lactic Acid 1.2 Calcium 9.2 D Total Bilirubin 0.4 Direct Bilirubin 0.2 AST 13 ALT 26 Alkaline Phosphatase 108 C-Reactive Protein 3.48 H Total Protein 6.8 Albumin 3.8 COVID-19 (GURVINDER) COVID-19 [employer] 03/05/22 03/05/22 03/05/22 07:07 07:51 11:30 MCV MCH MCHC RDW Plt Count MPV Immature Gran % (Auto) Neut % (Auto) Lymph % (Auto) [place] % (Auto) Eos % (Auto) Baso % (Auto) Lymph # (Auto) [place] # (Auto) Eos # (Auto) Baso # (Auto) Abs Immat Gran (auto) Absolute Neuts (auto) Absolute Nucleated RBC Nucleated RBC % (auto) ESR Anion Gap 11 L Estim Creat Clear Calc 100.3 Estimated GFR > 60 POC Glucose 237 H 198 H Random Glucose 254 H Lactic Acid Calcium 8.3 L D Total Bilirubin Direct Bilirubin AST ALT Alkaline Phosphatase C-Reactive Protein Total Protein Albumin COVID-19 (GURVINDER) COVID-19 Clin Com Assessment and Plan (1) Diabetes: Status: Acute (2) Osteomyelitis of foot: Status: Acute Plan ?56-year-old male with a past medical history of hypertension, hyperlipidemia, diabetes, CAD status post CABG in August 2021; presented to the hospital with a chief complaint of right foot pain redness and swelling.? Right diabetic foot ulcer/cellulitis/ osteomyelitis: Pending cultures X-rays concerning for osteomyelitis. Continue IV vancomycin and Zosyn.? Id and General surgery consult pending ? History of diabetes: Continue insulin sliding scale. ? hold home glipizide , Jardiance.? History of hypertension/hyperlipidemia:? Continue home valsartan/ losartan History of CAD status post CABG: Continue home aspirin/statin. DVT PPX Lovenox The patient will need overnight hospital stay to continue IV antibiotics for right diabetic foot ulcer pending surgical evaluation to prevent any possible decompensation in to sepsis. Quality Stroke Does the patient have a stroke diagnosis?: No VTE Prior VTE?: No VTE Risk Level:: Medical - moderate - high VTE Device Contraindication: Treatment Not Indicated VTE Drug Contraindication: N/A - Med Ordered
--- NOTE | 2022-03-05 14:26 | W.PM.IDCN ---
History of Present Illness Data of Consult Service Date: 03/05/22 Requesting physician: Tanya Hoang Primary Care Provider: Starr Anderson MD HPI Reason for consult: right fifth toe plantar ulcer He presents with worsening drainage and erythema right lateral foot. This started about a year ago with blister that he opened and had clear fluid from area opened after pumice stone. [facility] and received he says a week of po antibiotics and then weekly dressings. He has XR shows edema fifth metatarsal head. [facility] Past Medical History Medical History Adopted Diabetes HTN (hypertension) Necrotizing fasciitis Family History Family History Mother No problems noted. Father No problems noted. Family history: reviewed and not pertinent Surgical History Surgical History History of incision and drainage Social History Social History Household Members: Significant Other Housing: Apartment Do you presently have visiting nurse or other home services: No Alcohol intake: current Alcohol intake frequency: holidays/special occasions only Patient Tobacco Use Status: Never used Tobacco Cigarettes Per Day: 0.5 Second Hand Smoke Exposure: No Use of substances other than those prescribed or required for medical reasons: Yes Substance Use Type: Marijuana Substance Use Frequency: Occasionally Last Used Substance: Days (ago) Any prior treatment program specific to substance use: No Have you been hit, kicked, punched, or otherwise hurt by someone within the past year? If so, by whom?: No Do you feel safe in your current relationship?: Yes Is there a partner from a previous relationship who is making you feel unsafe now?: No Are you made to feel afraid or neglected: No Advance Directives: No Advance Directives Information Provided: No Do you have thoughts of harming others: None Do you have a plan to hurt others: No Plan Recently lost weight without trying: No Eating poorly because of decreased appetite: No Nutrition Risks: No Nutritional Risk Poor oral hygiene: No service: No Current occupational status: employed Meds Allergies Allergy/AdvReac Type Severity Reaction Status Date / Time No Known Allergies Allergy Verified 03/05/22 10:36 [No Known Allergies*] Active Medications: Current Medications Acetaminophen (Acetaminophen 325 Mg Tablet) 650 mg PO Q6H PRN PRN Reason: Pain, Mild (Pain Scale 1-3) Last Admin: 03/05/22 12:47 Dose: 650 mg Aspirin (Aspirin Enteric Coated 81 Mg Tablet.) 81 mg PO DAILY [facility] Last Admin: 03/05/22 11:27 Dose: 81 mg Atorvastatin Calcium (Atorvastatin Calcium 80 Mg Tablet) 80 mg PO BEDTIME SOTO Clopidogrel Bisulfate (Clopidogrel Bisulfate 75 Mg Tablet) 75 mg PO DAILY [facility] Last Admin: 03/05/22 11:28 Dose: 75 mg Dextrose (Dextrose 50 % 25 Gm/50 Ml Syringe) 25 gm IVPUSH Q15M PRN; Protocol PRN Reason: per Hypoglycemia Standing Ord. Enoxaparin Sodium (Enoxaparin Sodium 40 Mg/0.4 Ml Syringe) 40 mg SUBCUT Q24H [facility] Last Admin: 03/05/22 04:43 Dose: 40 mg Furosemide (Furosemide 40 Mg Tablet) 40 mg PO DAILY [facility]; Protocol Last Admin: 03/05/22 11:28 Dose: 40 mg Glucose (Glucose Gel 15 Gm Gel..Gram.) 15 gm PO Q15M PRN; Protocol PRN Reason: per Hypoglycemia Standing Ord. Piperacillin Sod/Tazobactam (Sod 3.375 gm/ Sodium Chloride) 50 mls @ 100 mls/hr IV Q6H [facility] Last Infusion: 03/05/22 14:07 Dose: Infused Vancomycin HCl 1,000 mg/ (Sodium Chloride) 270 mls @ 270 mls/hr IV Q12H [facility] Insulin Human Lispro (Insulin Lispro 100 Unit/Ml 3 Ml Vial) 0 unit SUBCUT QIDACHS [facility]; Protocol Last Admin: 03/05/22 12:47 Dose: 2 unit Melatonin (Melatonin 3 Mg Tablet) 6 mg PO BEDTIME PRN PRN Reason: Insomnia Pharmacy Consult (Consult Rx Vancomycin Dosing) 1 each MISCELLANE DAILY PRN PRN Reason: Consult order Senna (Sennosides 8.6 Mg Tablet) 17.2 mg PO BEDTIME PRN PRN Reason: Constipation Sodium Chloride (0.9 % Sodium Chloride Flush 3 Ml Syringe) 3 ml IVFLUSH QSHIFT [facility] Last Admin: 03/05/22 10:05 Dose: Not Given Valsartan (Valsartan 40 Mg Tablet) 40 mg PO DAILY [facility]; Protocol Last Admin: 03/05/22 11:28 Dose: 40 mg Home Medications Medication Instructions Recorded Confirmed Last Taken Type dulaglutide 0.75 mg/0.5 mL 0.75 mg subcut HUSAIN@0900 08/19/20 03/04/22 02/24/22 History subcutaneous pen injector (Trulicity) glipizide 10 mg tablet, extended 1 tab PO DAILY 08/19/20 03/04/22 03/03/22 History release 24 hr blood-glucose meter #1 ea 09/01/20 09/01/20 Unknown History aspirin 81 mg tablet,delayed 1 tab PO DAILY 03/04/22 03/04/22 03/03/22 History release atorvastatin 80 mg tablet 1 tab PO BEDTIME 03/04/22 03/04/22 03/03/22 History clopidogrel 75 mg tablet 1 tab PO QAM 03/04/22 03/04/22 03/03/22 History empagliflozin 25 mg tablet 1 tab QAM 03/04/22 03/04/22 03/03/22 History (Jardiance) furosemide 40 mg tablet 1 tab PO QAM 03/04/22 03/04/22 03/03/22 History valsartan 40 mg tablet 1 tab PO DAILY 03/04/22 03/04/22 03/03/22 History Physical Exam Vital Signs: Vital Signs: Last Vital Signs Temp 97.6 F 03/05/22 11:28 Pulse 105 H 03/05/22 11:28 Resp 18 03/05/22 11:28 BP 120/75 03/05/22 11:28 Pulse Ox 95 03/05/22 11:28 O2 Del Method 03/05/22 11:28 BMI result Body Mass Index 34.8 Const: General: cooperative HEENT: Head: Yes normal to inspection Face and sinus: Yes normal facial exam Mouth: Normal oral and palatal mucosa present Teeth and gingiva: dentition normal Eyes: General: appearance normal, both eyes and all related structures Pupils: Equal, round and reactive pupils present Resp: Effort & Inspection: normal respiratory effort Cardio: Rate: regular rate Rhythm: regular rhythm GI: Palpation (GI): Soft to palpation and nontender : General: Yes no CVA tenderness Back/Spine/Pelvis: Back: no CVA tenderness Skin: General skin exam: no rashes or lesions noted Neuro: General: moves all extremities Cranial nerves: Yes Equal, round and reactive pupils present Extrem: Other: lateral right fifth toe plantar chronic ulcer 1 cm approximately Psych: Appearance: grossly normal Results Labs CBC & Chem 7: 03/05/22 07:07 03/05/22 07:07 Labs: Short CBC 03/04/22 03/05/22 Range/Units 17:30 07:07 WBC 17.7 H 14.8 H (4.8-10.8) X10*3/uL Hgb 16.8 15.7 (14.0-18.0) g/dl Hct 49.1 46.4 (42.0-52.0) % Plt Count 298 240 (160-400) X10*3/uL BMP 03/04/22 03/05/22 17:57 07:07 Sodium 138 138 Potassium 4.5 4.4 Chloride 106 108 Carbon Dioxide 24 23 BUN 22 H 21 H Creatinine 0.98 1.04 Calcium 9.2 D 8.3 L D Liver Function 03/04/22 Range/Units 17:57 Total Bilirubin 0.4 (0.0-1.0) mg/dL Direct Bilirubin 0.2 (0.0-0.5) mg/dL AST 13 (5-37) U/L ALT 26 (0-40) U/L Alkaline Phosphatase 108 (39-117) U/L Albumin 3.8 (3.5-5.0) g/dL Assessment and Plan (1) Osteomyelitis of foot: Status: Acute He has ulcer over a year He has possible staph,strep,anerobes Plan See Dr Smith of Vascular evaluate for arterial insufficiency. IV Ertapenem or Vancomycin for six weeks and then possible po Doxycycline. See me after discharge
[2022-03-05 16:00] VITALS: BP 121/70; PULSE 100; RESP 18; TEMP 36.4; O2SAT 96
[2022-03-05 16:13] LABS: Glucose, Whole Blood 178 mg/dL (60-115)
[2022-03-05 19:35] VITALS: BP 111/82; PULSE 100; RESP 18; TEMP 36.7; O2SAT 97
[2022-03-05 19:56] LABS: Glucose, Whole Blood 181 mg/dL (60-115)
[2022-03-05] MEDS: vancomycin HCL 1,000 MG in 0.9 % Sodium Chloride 250 ML 270 MG IV (22:55)
[2022-03-05] MEDS: Atorvastatin Calcium 80 MG TABLET PO (22:55)
[2022-03-06] VITALS: BP 128/76; PULSE 97; RESP 18; TEMP 36.6; O2SAT 96
[2022-03-06] MEDS: Piperacillin Sodium/Tazobactam 3.375 GM in 0.9 % Sodium Chloride 50 ML IV ×4 (00:14→18:36)
[2022-03-06] MEDS: Enoxaparin Sodium 40 MG/0.4 ML SYRINGE SUBCUT (04:28)
[2022-03-06] MEDS: Acetaminophen 325 MG TABLET 650 MG PO ×2 (05:30→12:02)
[2022-03-06 07:08] LABS: Creatinine Clr Calc Pharmacy 125.7; Estimated Glomerular Filt Rate > 60
[2022-03-06 07:19] LABS: Anion Gap 12 (12-20); Blood Urea Nitrogen 16 mg/dL (9-16); Calcium 8.4 mg/dL (8.4-10.2); Carbon Dioxide 23 mmol/L (22-29); Chloride 108 mmol/L (96-108); Creatinine Clr Calc Pharmacy 130.4; Estimated Glomerular Filt Rate > 60; Glucose Random 118 mg/dL (60-115); Potassium 4.2 mmol/L (3.3-5.1); Sodium 139 mmol/L (135-145)
[2022-03-06 07:32] VITALS: BP 130/84; PULSE 100; RESP 18; TEMP 36.6; O2SAT 95
[2022-03-06 07:40] LABS: Glucose, Whole Blood 141 mg/dL (60-115)
--- NOTE | 2022-03-06 08:48 | MHC.CM.PN ---
PATIENT LIVES WITH SIGNIFICANT OTHER SHE IS HIS HCP AND A COPY IS REPORTEDLY AT [facility] FOLLOWING A RECENT M.I. COPY REQUESTED IF (RENETTA) IS ABLE TO BRING IT IN. HE HAS BEEN COVID VACCINATED X3. NO DME OR VNA SERVICES IN THE HOME. PATIENT WAS TOLD THAT HE MAY REQUIRE 6 WEEKS OF IV ABX. [place] [facility] [place] [facility] [place] [facility] FOR THIS. PATIENT IN AGREEMENT WITH PLAN.
[2022-03-06] MEDS: Furosemide 40 MG TABLET PO (10:36)
[2022-03-06] MEDS: Aspirin Enteric Coated 81 MG TABLET.DR PO (10:36)
[2022-03-06] MEDS: 0.9 % Sodium Chloride Flush 3 ML SYRINGE IVFLUSH ×3 (10:36→20:47)
[2022-03-06] MEDS: Clopidogrel Bisulfate 75 MG TABLET PO (10:36)
[2022-03-06] MEDS: Valsartan 40 MG TABLET PO (10:36)
[2022-03-06 11:12] LABS: Vancomycin Trough 12.8 mcg/mL (10.0-20.0)
[2022-03-06 11:27] LABS: Glucose, Whole Blood 228 mg/dL (60-115)
--- NOTE | 2022-03-06 11:36 | HE.PHANOTE ---
Vancomycin Dosing Addendum Patient's level came back at 12.8 mg/L. Rx insight shows that patient's predicted AUC is 445 mg/L/hr. AUC within therapeutic range, continue current regimen for now.
[2022-03-06] MEDS: vancomycin HCL 1,000 MG in 0.9 % Sodium Chloride 250 ML 270 MG IV ×2 (12:03→22:52)
[2022-03-06] MEDS: Insulin Lispro 100 UNIT/ML 3 ML VIAL SUBCUT ×3 (12:04→20:47)
--- NOTE | 2022-03-06 12:20 | HO.PM.IMPN ---
Subjective Subjective Date of Service: 03/06/22 Interval History: the patient was seen and evaluated this morning Laying in bed, feels comfortable Denies any fever, chills or shortness of breath No reported other overnight events. Systemic review: No fever, chills or weakness No chest pain, palpitation No shortness of breath or coughing No abdominal pain, nausea or vomiting No urinary symptoms very minimal pain at the side of the wound Physical Exam Vital Signs: Vital Signs: Last Vital Signs Temp 97.8 F 03/06/22 07:32 Pulse 100 03/06/22 07:32 Resp 18 03/06/22 07:32 BP 130/84 03/06/22 07:32 Pulse Ox 95 03/06/22 07:32 O2 Del Method 03/06/22 07:32 BMI result Body Mass Index 34.8 Const: Other: Constitutional : Alert, oriented, not in distress Neck : Normal inspection, Supple Cardiovascular : RRR, no JVP, no lower extremity edema Respiratory : fair bilateral air entry, no crackles, wheezes or rhonchi Gastrointestinal: soft, lax, Normal bowel sounds, Non tender Skin : Warm, Dry, lateral right 5th toe chronic 1 cm ulcer, varicose veins in right lower extremity Neurological : Alert & oriented x3, No focal deficit , CN 2-12 within normal Objective Data Active Medications Acetaminophen (Acetaminophen 325 Mg Tablet) 650 mg PO Q6H PRN PRN Reason: Pain, Mild (Pain Scale 1-3) Last Admin: 03/06/22 05:30 Dose: 650 mg Documented By: ADOLFO Aspirin (Aspirin Enteric Coated 81 Mg Tablet.) 81 mg PO DAILY [facility] Last Admin: 03/06/22 10:36 Dose: 81 mg Documented By: YAZAN Atorvastatin Calcium (Atorvastatin Calcium 80 Mg Tablet) 80 mg PO BEDTIME [facility] Last Admin: 03/05/22 22:55 Dose: 80 mg Documented By: ADOLFO Clopidogrel Bisulfate (Clopidogrel Bisulfate 75 Mg Tablet) 75 mg PO DAILY [facility] Last Admin: 03/06/22 10:36 Dose: 75 mg Documented By: YAZAN Dextrose (Dextrose 50 % 25 Gm/50 Ml Syringe) 25 gm IVPUSH Q15M PRN; Protocol PRN Reason: per Hypoglycemia Standing Ord. Enoxaparin Sodium (Enoxaparin Sodium 40 Mg/0.4 Ml Syringe) 40 mg SUBCUT Q24H [facility] Last Admin: 03/06/22 04:28 Dose: 40 mg Documented By: ADOLFO Furosemide (Furosemide 40 Mg Tablet) 40 mg PO DAILY [facility]; Protocol Last Admin: 03/06/22 10:36 Dose: 40 mg Documented By: YAZAN Glucose (Glucose Gel 15 Gm Gel..Gram.) 15 gm PO Q15M PRN; Protocol PRN Reason: per Hypoglycemia Standing Ord. Piperacillin Sod/Tazobactam (Sod 3.375 gm/ Sodium Chloride) 50 mls @ 100 mls/hr IV Q6H [facility] Last Infusion: 03/06/22 06:39 Dose: 100 mls/hr Documented By: ADOLFO Vancomycin HCl 1,000 mg/ (Sodium Chloride) 270 mls @ 270 mls/hr IV Q12H [facility] Last Infusion: 03/06/22 00:15 Dose: 270 mls/hr Documented By: ADOLFO Insulin Human Lispro (Insulin Lispro 100 Unit/Ml 3 Ml Vial) 0 unit SUBCUT QIDACHS [facility]; Protocol Last Admin: 03/06/22 07:53 Dose: Not Given Documented By: YAZAN Non-Admin Reason: No Insulin Coverage Melatonin (Melatonin 3 Mg Tablet) 6 mg PO BEDTIME PRN PRN Reason: Insomnia Pharmacy Consult (Consult Rx Vancomycin Dosing) 1 each MISCELLANE DAILY PRN PRN Reason: Consult order Senna (Sennosides 8.6 Mg Tablet) 17.2 mg PO BEDTIME PRN PRN Reason: Constipation Sodium Chloride (0.9 % Sodium Chloride Flush 3 Ml Syringe) 3 ml IVFLUSH QSHIFT [facility] Last Admin: 03/06/22 10:36 Dose: 3 ml Documented By: YAZAN Valsartan (Valsartan 40 Mg Tablet) 40 mg PO DAILY [facility]; Protocol Last Admin: 03/06/22 10:36 Dose: 40 mg Documented By: YAZAN Labs CBC & Chem 7: 03/05/22 07:07 03/06/22 05:54 Labs: Laboratory Results - last 24 hr 03/05/22 03/05/22 03/06/22 16:05 19:38 05:54 Anion Gap Estim Creat Clear Calc 125.7 Estimated GFR > 60 POC Glucose 178 H 181 H Random Glucose Calcium Vancomycin Trough 07/03/06/22 03/06/22 05:54 07:36 09:01 Anion Gap 12 Estim Creat Clear Calc 130.4 Estimated GFR > 60 POC Glucose 141 H Random Glucose 118 H D Calcium 8.4 Vancomycin Trough 12.8 03/06/22 11:06 Anion Gap Estim Creat Clear Calc Estimated GFR POC Glucose 228 H Random Glucose Calcium Vancomycin Trough Microbiology Microbiology Results: Microbiology 03/04/22 18:10 Blood Culture - Preliminary Blood - Venous No growth after 24 hours. 03/04/22 17:57 Blood Culture - Preliminary Blood - Venous No growth after 24 hours. Assessment and Plan (1) Osteomyelitis of foot: Status: Acute Plan ?56-year-old male with a past medical history of hypertension, hyperlipidemia, diabetes, CAD status post CABG in August 2021; presented to the hospital with a chief complaint of right foot pain redness and swelling.? Right diabetic foot ulcer/cellulitis/ osteomyelitis: Pending cultures X-rays concerning for osteomyelitis. Continue IV vancomycin Id Input appreciated, 6 weeks of IV vancomycin or ertapenem To do a PICC line once cultures are negative varicose veins Post CABG in September Get vascular surgery evaluation ? History of diabetes: Continue insulin sliding scale. ? hold home glipizide , Jardiance.? History of hypertension/hyperlipidemia:? Continue home valsartan/ losartan History of CAD status post CABG: Continue home aspirin/statin. DVT PPX Lovenox The patient will need overnight hospital stay to continue IV antibiotics for right diabetic foot ulcer pending surgical evaluation to prevent any possible decompensation in to sepsis. Quality Stroke Does the patient have a stroke diagnosis?: No VTE Prior VTE?: No VTE Risk Level:: Medical - moderate - high VTE Device Contraindication: Treatment Not Indicated VTE Drug Contraindication: N/A - Med Ordered
--- NOTE | 2022-03-06 14:37 | PM.CNGS ---
History of Present Illness Consult details Consult date: 03/06/22 Reason for consult: wound care Narrative: Complex 56-year-old gentleman with nonhealing right lower extremity ulcer presents for vascular evaluation. He reports that he has been having this ulcer issue for over the past year or so. [facility] but due to insurance issues stopped following up. He had an DE in August and had out 5 vessel CABG. Subsequent to that he quit smoking. He developed this nonhealing right foot ulcer. He had become infected and painful. He presented to the emergency room. Of note he has been a long-standing diabetic as well. Review of Systems Review of Systems: Yes all other systems are reviewed and are negative Constitutional: Constitutional: Reports no additional constitutional complaints ENT: Reports Normal hearing present Cardiovascular: Cardiovascular: Denies chest pain, Denies chest pain at rest, Denies chest pain with activity and Denies pedal edema Respiratory: Respiratory: Denies cough Gastrointestinal: Gastrointestinal: Denies abdominal pain Musculoskeletal: Musculoskeletal: Denies abnormal gait, Denies muscle cramps and Denies radiating pain into limb Integumentary/Breasts: Skin/Breast: Denies skin ulcer and Denies wounds Neurologic: Reports Normal hearing present and Denies abnormal gait Psychiatric: Psychiatric: Reports no additional psychiatric complaints PMFSH Past Medical History Medical History Adopted Diabetes HTN (hypertension) Necrotizing fasciitis Family History Family History Mother No problems noted. Father No problems noted. Family history: reviewed and not pertinent Surgical History Surgical History History of incision and drainage Social History Social History Household Members: Significant Other Housing: Apartment Do you presently have visiting nurse or other home services: No Alcohol intake: current Alcohol intake frequency: holidays/special occasions only Patient Tobacco Use Status: Never used Tobacco Cigarettes Per Day: 0.5 Second Hand Smoke Exposure: No Use of substances other than those prescribed or required for medical reasons: Yes Substance Use Type: Marijuana Substance Use Frequency: Occasionally Last Used Substance: Days (ago) Currently Displaying Signs/Symptoms of Drug Intoxication Withdrawal: No Any prior treatment program specific to substance use: No Have you been hit, kicked, punched, or otherwise hurt by someone within the past year? If so, by whom?: No Do you feel safe in your current relationship?: Yes Is there a partner from a previous relationship who is making you feel unsafe now?: No Are you made to feel afraid or neglected: No Advance Directives: No Advance Directives Information Provided: No Do you have thoughts of harming others: None Do you have a plan to hurt others: No Plan Recently lost weight without trying: No Eating poorly because of decreased appetite: No Nutrition Risks: No Nutritional Risk Poor oral hygiene: No service: No Current occupational status: [employer] Allergies Allergy/AdvReac Type Severity Reaction Status Date / Time No Known Allergies Allergy Verified 03/05/22 10:36 [No Known Allergies*] Active Medications: Current Medications Acetaminophen (Acetaminophen 325 Mg Tablet) 650 mg PO Q6H PRN PRN Reason: Pain, Mild (Pain Scale 1-3) Last Admin: 03/06/22 12:02 Dose: 650 mg Acetaminophen (Acetaminophen 325 Mg Tablet) 650 mg PO Q6H PRN PRN Reason: Pain, Mild (Pain Scale 1-3) Aspirin (Aspirin Enteric Coated 81 Mg Tablet.Dr) 81 mg PO DAILY [facility] Last Admin: 03/06/22 10:36 Dose: 81 mg Atorvastatin Calcium (Atorvastatin Calcium 80 Mg Tablet) 80 mg PO BEDTIME SOTO Last Admin: 03/05/22 22:55 Dose: 80 mg Clopidogrel Bisulfate (Clopidogrel Bisulfate 75 Mg Tablet) 75 mg PO DAILY [facility] Last Admin: 03/06/22 10:36 Dose: 75 mg Dextrose (Dextrose 50 % 25 Gm/50 Ml Syringe) 25 gm IVPUSH Q15M PRN; Protocol PRN Reason: per Hypoglycemia Standing Ord. Enoxaparin Sodium (Enoxaparin Sodium 40 Mg/0.4 Ml Syringe) 40 mg SUBCUT Q24H [facility] Last Admin: 03/06/22 04:28 Dose: 40 mg Furosemide (Furosemide 40 Mg Tablet) 40 mg PO DAILY [facility]; Protocol Last Admin: 03/06/22 10:36 Dose: 40 mg Glucose (Glucose Gel 15 Gm Gel..Gram.) 15 gm PO Q15M PRN; Protocol PRN Reason: per Hypoglycemia Standing Ord. Piperacillin Sod/Tazobactam (Sod 3.375 gm/ Sodium Chloride) 50 mls @ 100 mls/hr IV Q6H [facility] Last Infusion: 03/06/22 14:16 Dose: Infused Vancomycin HCl 1,000 mg/ (Sodium Chloride) 270 mls @ 270 mls/hr IV Q12H [facility] Last Infusion: 03/06/22 13:25 Dose: Infused Insulin Human Lispro (Insulin Lispro 100 Unit/Ml 3 Ml Vial) 0 unit SUBCUT QIDACHS [facility]; Protocol Last Admin: 03/06/22 12:04 Dose: 4 unit Melatonin (Melatonin 3 Mg Tablet) 6 mg PO BEDTIME PRN PRN Reason: Insomnia Pharmacy Consult (Consult Rx Vancomycin Dosing) 1 each MISCELLANE DAILY PRN PRN Reason: Consult order Senna (Sennosides 8.6 Mg Tablet) 17.2 mg PO BEDTIME PRN PRN Reason: Constipation Sodium Chloride (0.9 % Sodium Chloride Flush 3 Ml Syringe) 3 ml IVFLUSH QSHIFT [facility] Last Admin: 03/06/22 10:36 Dose: 3 ml Valsartan (Valsartan 40 Mg Tablet) 40 mg PO DAILY [facility]; Protocol Last Admin: 03/06/22 10:36 Dose: 40 mg Home Medications Medication Instructions Recorded Confirmed Last Taken Type dulaglutide 0.75 mg/0.5 mL 0.75 mg subcut HUSAIN@0900 08/19/20 03/04/22 02/24/22 History subcutaneous pen injector (Trulicity) glipizide 10 mg tablet, extended 1 tab PO DAILY 08/19/20 03/04/22 03/03/22 History release 24 hr blood-glucose meter #1 ea 09/01/20 09/01/20 Unknown History aspirin 81 mg tablet,delayed 1 tab PO DAILY 03/04/22 03/04/22 03/03/22 History release atorvastatin 80 mg tablet 1 tab PO BEDTIME 03/04/22 03/04/22 03/03/22 History clopidogrel 75 mg tablet 1 tab PO QAM 03/04/22 03/04/22 03/03/22 History empagliflozin 25 mg tablet 1 tab QAM 03/04/22 03/04/22 03/03/22 History (Jardiance) furosemide 40 mg tablet 1 tab PO QAM 03/04/22 03/04/22 03/03/22 History valsartan 40 mg tablet 1 tab PO DAILY 03/04/22 03/04/22 03/03/22 History Physical Exam Vital Signs: Vital Signs: Last Vital Signs Temp 97.8 F 03/06/22 07:32 Pulse 100 03/06/22 07:32 Resp 18 03/06/22 07:32 BP 130/84 03/06/22 07:32 Pulse Ox 95 03/06/22 07:32 O2 Del Method 03/06/22 07:32 BMI result Body Mass Index 34.8 Const: General: cooperative, healthy appearing and comfortable Orientation/consciousness: oriented to person, oriented to place and oriented to time HEENT: Head: Yes normal to inspection Neck: Neck: Yes normal visual inspection Carotids: no bruits Chest: Chest palpation & inspection: normal inspection of the chest Resp: Effort & Inspection: normal respiratory effort and able to speak in complete sentences Auscultation: clear to auscultation bilaterally, no crackles, no rales, no rhonchi and no wheezes Cardio: Rate: regular rate Rhythm: regular rhythm Heart sounds: S1 normal heart sound present and S2 normal heart sound present Bruits: no carotid bruits Peripheral pulses: dorsalis pedis present (Bilateral DP signals) GI: Inspection: Yes normal to inspection Skin: Wounds: wounds noted (Right foot) Hair: normal Neuro: General: oriented to person, oriented to place and oriented to time Cranial nerves: Yes CN's II-XII intact bilaterally and Yes Normal hearing present Cognition (Neuro): normal cognition Motor exam (neuro): 5/5 motor strength present throughout Extrem: Other: venous exam: No significant superficial varicosities or spider telangiectasias, minimal edema General: No clubbing, No cyanosis and No edema Psych: Appearance: grossly normal Mental Status: mental status grossly normal Speech and movement: Normal speech and movement present Results Labs Result diagrams: 03/05/22 07:07 03/06/22 05:54 Labs: Abnormal lab results 03/05/22 03/05/22 03/06/22 Range/Units 16:05 19:38 05:54 POC Glucose 178 H 181 H (60-115) mg/dL Random Glucose 118 H D (60-115) mg/dL 03/06/22 03/06/22 Range/Units 07:36 11:06 POC Glucose 141 H 228 H (60-115) mg/dL Random Glucose (60-115) mg/dL BMP 03/06/22 03/06/22 05:54 05:54 Sodium 139 Potassium 4.2 Chloride 108 Carbon Dioxide 23 BUN 16 Creatinine 0.83 0.80 Calcium 8.4 All other labs normal. Assessment and Plan (1) PAD (peripheral artery disease): Status: Acute Plan In short patient has nonhealing right foot ulcer. The patient does have an element of peripheral vascular disease as he has nonpalpable pulses. He does have significant comorbidities including recent history of smoking and diabetes. I have taken the liberty of ordering noninvasive arterial testing. He will require long-term IV antibiotics due to his underlying osteomyelitis. We will follow up with you after arterial testing. Thank you for allowing us to assist in his care. If there are any questions or concerns please do not hesitate to contact us. Procedures Date of Service Date of Service: 03/06/22
[2022-03-06 15:44] VITALS: BP 135/78; PULSE 100; RESP 20; TEMP 36; O2SAT 96
[2022-03-06 16:12] LABS: Glucose, Whole Blood 182 mg/dL (60-115)
[2022-03-06 19:37] LABS: Glucose, Whole Blood 175 mg/dL (60-115)
[2022-03-06] MEDS: Atorvastatin Calcium 80 MG TABLET PO (20:47)
[2022-03-07] VITALS: BP 160/79; PULSE 95; RESP 18; TEMP 36.6; O2SAT 95
[2022-03-07] MEDS: Piperacillin Sodium/Tazobactam 3.375 GM in 0.9 % Sodium Chloride 50 ML IV ×2 (00:05→05:28)
[2022-03-07 04:00] VITALS: BP 137/65; PULSE 109; RESP 17; TEMP 36.6; O2SAT 97
[2022-03-07] MEDS: Enoxaparin Sodium 40 MG/0.4 ML SYRINGE SUBCUT (04:36)
[2022-03-07 07:02] VITALS: BP 135/78; PULSE 112; RESP 18; TEMP 36.9; O2SAT 97
[2022-03-07 07:20] LABS: Creatinine Clr Calc Pharmacy 142.9; Estimated Glomerular Filt Rate > 60
[2022-03-07 07:21] LABS: Glucose, Whole Blood 120 mg/dL (60-115)
[2022-03-07 07:23] LABS: Anion Gap 12 (12-20); Blood Urea Nitrogen 11 mg/dL (9-16); Calcium 8.3 mg/dL (8.4-10.2); Carbon Dioxide 24 mmol/L (22-29); Chloride 106 mmol/L (96-108); Estimated Glomerular Filt Rate > 60; Glucose Random 106 mg/dL (60-115); Sodium 138 mmol/L (135-145)
[2022-03-07] MEDS: Valsartan 40 MG TABLET PO (08:26)
[2022-03-07] MEDS: Acetaminophen 325 MG TABLET 650 MG PO ×2 (08:26→21:21)
[2022-03-07] MEDS: Furosemide 40 MG TABLET PO (08:26)
[2022-03-07] MEDS: Clopidogrel Bisulfate 75 MG TABLET PO (08:27)
[2022-03-07] MEDS: 0.9 % Sodium Chloride Flush 3 ML SYRINGE IVFLUSH ×3 (08:27→21:17)
[2022-03-07] MEDS: Aspirin Enteric Coated 81 MG TABLET.DR PO (08:27)
[2022-03-07 09:24] LABS: Hematocrit 45.3 % (42.0-52.0); Hemoglobin 15.4 g/dl (14.0-18.0); Mean Corpuscular Hemoglobin 32.4 pg (27.0-33.0); Mean Corpuscular Volume 95.2 fL (80.0-98.0); Mean Platelet Volume 10.6 fL (9.4-12.4); Platelet Count 251 X10*3/uL (160-400); Red Blood Count 4.76 X10*6/uL (4.60-5.80); Red Cell Distribution Width 13.3 % (11.0-16.0); White Blood Count 12.4 X10*3/uL (4.8-10.8)
--- NOTE | 2022-03-07 09:56 | HO.VASCPN ---
Subjective Subjective Date of Service: 03/07/22 Patient reports: no new complaints and feels better Interval history: Pleasant 56-year-old gentleman presents for follow-up regarding nonhealing right lateral foot ulceration. He has had no interval issues. He reports that the pain and discomfort have significantly improved. He now presents for follow-up with noninvasive testing which was performed yesterday in the hospital. Physical Exam Vital Signs: Vital Signs: Last Vital Signs Temp 98.4 F 03/07/22 07:02 Pulse 112 H 03/07/22 07:02 Resp 18 03/07/22 07:02 BP 135/78 03/07/22 07:02 Pulse Ox 97 03/07/22 07:02 O2 Del Method 03/07/22 07:02 BMI result Body Mass Index 34.8 Const: General: cooperative, healthy appearing and no acute distress Orientation/consciousness: oriented to person, oriented to place and oriented to time HEENT: Head: Yes normal to inspection Neck: Carotids: no bruits Chest: Chest palpation & inspection: normal inspection of the chest Resp: Effort & Inspection: normal respiratory effort and able to speak in complete sentences Auscultation: clear to auscultation bilaterally Cardio: Rate: regular rate Heart sounds: S1 normal heart sound present and S2 normal heart sound present GI: Inspection: Yes normal to inspection Skin: General skin exam: no rashes or lesions noted Wounds: wounds noted (Right lateral foot 1 cm with overlying callus that was cleaned) Neuro: General: oriented to person, oriented to place, oriented to time and CN's II-XI intact bilaterally Extrem: General: Yes normal to inspection, Yes full ROM and Yes no clubbing, cyanosis or edema Psych: Appearance: grossly normal and well kempt Speech and movement: Normal speech and movement present Affect: normal affect Progress Note: A&P Assessment and plan (1) PAD (peripheral artery disease): Status: Acute Assessment and Plan: In short the patient has a diabetic foot ulcer. Noninvasive testing demonstrates ELIZABETH on the right of 1.2 and on the left of 1.24 but I am able to appreciate palpable pulses. I do believe he has reasonable flow to heal this. The wound was cleaned. He will require long-term antibiotics which he was informed about. He is stable from a vascular perspective. He can follow up with me in approximately 2 weeks time as an outpatient for routine surveillance follow-up. Thank you for allowing us to assist in his care. If there are any questions or concerns please do not hesitate to contact us. Time Spent With Patient Time: Total time spent is greater than 50% in coordination of care (as documented) at patient's floor/unit and/or counseling patient: Procedures Date of Service Date of Service: 03/07/22 Quality Stroke Does the patient have a stroke diagnosis?: No VTE Prior VTE?: No VTE Risk Level:: Medical - moderate - high VTE Device Contraindication: Treatment Not Indicated VTE Drug Contraindication: N/A - Med Ordered
[2022-03-07 10:20] LABS: Vancomycin Trough 12.2 mcg/mL (10.0-20.0)
--- NOTE | 2022-03-07 10:29 | HE.PHANOTE ---
Vanco Addendum Trough 03/07/22 came back at 12.2; dose increased t [id number] Q12H with predicted AUC 500mg/L. Next trough to be drawn 03/08/22 @2100
[2022-03-07 11:10] LABS: Glucose, Whole Blood 158 mg/dL (60-115)
--- NOTE | 2022-03-07 12:32 | MHC.CM.PN ---
Per hospitalise, plan PICC placement today, anticipate dc home tomorrow on Ertapenem 1 gm daily. Informed [facility] and [facility].
--- NOTE | 2022-03-07 12:35 | HO.PM.IMPN ---
Subjective Subjective Date of Service: 03/07/22 Interval History: seen and examined this morning Follow-up for right foot ulcer Reports swelling of tongue ongoing for few days- but seems to be just raw on left side of tongue/ no swelling Review of Systems Review of Systems: Yes all other systems are reviewed and are negative Constitutional Constitutional: Denies chills and Denies fever(s) Cardiovascular Cardiovascular: Denies chest pain, Denies palpitations and Denies dyspnea Respiratory Respiratory: Denies cough and Denies dyspnea Gastrointestinal Gastrointestinal: Denies abdominal pain, Denies nausea and Denies vomiting Endocrine Endocrine: Denies palpitations Physical Exam Vital Signs: Vital Signs: Last Vital Signs Temp 98.4 F 03/07/22 07:02 Pulse 112 H 03/07/22 07:02 Resp 18 03/07/22 07:02 BP 135/78 03/07/22 07:02 Pulse Ox 97 03/07/22 07:02 O2 Del Method 03/07/22 07:02 BMI result Body Mass Index 34.8 Const: General: cooperative, comfortable, no acute distress, alert and awake Nutritional Appearance: overweight Orientation/consciousness: patient oriented x3 HEENT: Other: no tongue swelling noted; upper lip dry/cracked Resp: Effort & Inspection: normal respiratory effort and able to speak in complete sentences Auscultation: clear to auscultation bilaterally Cardio: Rate: tachycardic Heart sounds: S1 normal heart sound present and S2 normal heart sound present GI: Inspection: No distended Palpation (GI): Soft to palpation and nontender Neuro: General: patient oriented x3 Extrem: Other: Objective Data Active Medications Acetaminophen (Acetaminophen 325 Mg Tablet) 650 mg PO Q6H PRN PRN Reason: Pain, Mild (Pain Scale 1-3) Last Admin: 03/07/22 08:26 Dose: 650 mg Documented By: DAE Acetaminophen (Acetaminophen 325 Mg Tablet) 650 mg PO Q6H PRN PRN Reason: Pain, Mild (Pain Scale 1-3) Aspirin (Aspirin Enteric Coated 81 Mg Tablet.) 81 mg PO DAILY [facility] Last Admin: 03/07/22 08:27 Dose: 81 mg Documented By: DAE Atorvastatin Calcium (Atorvastatin Calcium 80 Mg Tablet) 80 mg PO BEDTIME [facility] Last Admin: 03/06/22 20:47 Dose: 80 mg Documented By: DAE Clopidogrel Bisulfate (Clopidogrel Bisulfate 75 Mg Tablet) 75 mg PO DAILY [facility] Last Admin: 03/07/22 08:27 Dose: 75 mg Documented By: DAE Dextrose (Dextrose 50 % 25 Gm/50 Ml Syringe) 25 gm IVPUSH Q15M PRN; Protocol PRN Reason: per Hypoglycemia Standing Ord. Enoxaparin Sodium (Enoxaparin Sodium 40 Mg/0.4 Ml Syringe) 40 mg SUBCUT Q24H [facility] Last Admin: 03/07/22 04:36 Dose: 40 mg Documented By: DAE Furosemide (Furosemide 40 Mg Tablet) 40 mg PO DAILY [facility]; Protocol Last Admin: 03/07/22 08:26 Dose: 40 mg Documented By: DAE Glucose (Glucose Gel 15 Gm Gel..Gram.) 15 gm PO Q15M PRN; Protocol PRN Reason: per Hypoglycemia Standing Ord. Piperacillin Sod/Tazobactam (Sod 3.375 gm/ Sodium Chloride) 50 mls @ 100 mls/hr IV Q6H [facility] Last Infusion: 03/07/22 06:00 Dose: 0 mls/hr Documented By: DAE Vancomycin HCl 1,250 mg/ (Sodium Chloride) 250 mls @ 166.667 mls/hr IV Q12H [facility] Insulin Human Lispro (Insulin Lispro 100 Unit/Ml 3 Ml Vial) 0 unit SUBCUT QIDACHS [facility]; Protocol Last Admin: 03/07/22 07:22 Dose: Not Given Documented By: DAE Non-Admin Reason: No Insulin Coverage Melatonin (Melatonin 3 Mg Tablet) 6 mg PO BEDTIME PRN PRN Reason: Insomnia Pharmacy Consult (Consult Rx Vancomycin Dosing) 1 each MISCELLANE DAILY PRN PRN Reason: Consult order Senna (Sennosides 8.6 Mg Tablet) 17.2 mg PO BEDTIME PRN PRN Reason: Constipation Sodium Chloride (0.9 % Sodium Chloride Flush 3 Ml Syringe) 3 ml IVFLUSH QSHIFT [facility] Last Admin: 03/07/22 08:27 Dose: 3 ml Documented By: DAE Valsartan (Valsartan 40 Mg Tablet) 40 mg PO DAILY [facility]; Protocol Last Admin: 03/07/22 08:26 Dose: 40 mg Documented By: DAE Labs CBC & Chem 7: 03/07/22 08:59 03/07/22 05:33 Labs: Laboratory Results - last 24 hr 03/06/22 03/06/22 03/07/22 15:48 19:26 05:33 MCV MCH MCHC RDW Plt Count MPV Absolute Nucleated RBC Nucleated RBC % (auto) Anion Gap 12 Estim Creat Clear Calc 141.0 Estimated GFR > 60 POC Glucose 182 H 175 H Random Glucose 106 Calcium 8.3 L Vancomycin Trough 03/07/22 03/07/22 03/07/22 05:33 07:07 08:59 MCV MCH MCHC RDW Plt Count MPV Absolute Nucleated RBC Nucleated RBC % (auto) Anion Gap Estim Creat Clear Calc 142.9 Estimated GFR > 60 POC Glucose 120 H Random Glucose Calcium Vancomycin Trough 12.2 03/07/22 03/07/22 08:59 11:02 MCV 95.2 MCH 32.4 MCHC 34.0 RDW 13.3 Plt Count 251 MPV 10.6 Absolute Nucleated RBC 0.000 Nucleated RBC % (auto) 0.0 Anion Gap Estim Creat Clear Calc Estimated GFR POC Glucose 158 H Random Glucose Calcium Vancomycin Trough Microbiology Microbiology Results: Microbiology 03/04/22 18:10 Blood Culture - Preliminary Blood - Venous No growth after 48 hours. 03/04/22 17:57 Blood Culture - Preliminary Blood - Venous No growth after 48 hours. Assessment and Plan (1) Osteomyelitis of foot: Status: Acute Plan ?56-year-old male with a past medical history of hypertension, hyperlipidemia, diabetes, CAD status post CABG in August 2021; presented to the hospital with a chief complaint of right foot pain redness and swelling.? Right diabetic foot ulcer/cellulitis/ osteomyelitis: X-rays concerning for osteomyelitis leukocytosis trending down Seen by ID - rec 6 weeks of IV vanco or ertapenem; will plan to d/c with 6 weeks of IV ertapenem PICC line ordered seen by vascular surgery - no inpatient surgical intervention required. Recommend outpatient follow-up in 2 weeks blood cultures negative to date diabetes: Continue insulin sliding scale. ? hold home glipizide , Jardiance, trulicity? History of hypertension/hyperlipidemia:? Continue home valsartan, lasix History of CAD status post CABG: Continue home aspirin/plavix/statin. DVT PPX -Lovenox attending-Dr. Gee dispo - plan to return home with VNA /IV antibiotics, likely tomorrow requires ongoing inpatient hospitalization to receive IV antibiotics for osteomyelitis, PICC line placement Quality Stroke Does the patient have a stroke diagnosis?: No VTE Prior VTE?: No VTE Risk Level:: Medical - moderate - high VTE Device Contraindication: Treatment Not Indicated VTE Drug Contraindication: N/A - Med Ordered
[2022-03-07 13:11] LABS: Appearance Urine CLEAR; Color Urine YELLOW; Glucose Urine UA >=1000 MG/DL (NEG); Leukocyte Esterase Urine NEG (NEG); Nitrite Urine NEG (NEG); Specific Gravity - Urine 1.015 (1.005-1.025); UACC Culture Trigger NO; Urine Blood TRACE (NEG); Urine Ketones 40 MG/DL (NEG); Urine Protein NEG (NEG-TRACE)
[2022-03-07 13:54] LABS: Squamous Epithelial Cell Urine TRACE /LPF; WBC Urine 0 /HPF (0-4)
[2022-03-07] MEDS: vancomycin HCL 1,250 MG in 0.9 % Sodium Chloride 250 ML 166.67 MG IV (14:43)
--- NOTE | 2022-03-07 15:07 | P.PICC_ITS ---
PICC Line Insertion NPICC Diagnosis: [Right foot wound] Indication: [supervisor intermediates antibiotics needed] Pertinent Labs: [reviewed] Technique: Following informed consent including risks, benefits and alternatives and using sterile technique including cap and mask, sterile gown, glove and drape, the [right] arm was prepped and draped in the usual sterile fashion of full barrier technique with CHG. Following completion of [place] Protocol the skin and soft tissues were anesthetized with 1% Lidocaine plain. Using ultrasound guidance, right basilic vein access was obtained twice by Alicia Caraballo RN, but unable to pass guidewire. Right basilic vein was accessed by Chapito Ramos RN, but unable to wire the first attempt. Right basilic vein access was obtained on second attempt by Chapito Ramos RN. Over an 0.018 wire through peel- away sheath, a [4FR single lumen] PICC line was positioned. Catheter length is 49 CM internal length, 0 CM external length, for a total trimmed length of 49 CM. The procedure was performed in S272. Tip verification was performed by Paulo Jenkins with Iban 3CG. Tip located in SVC. Ultrasound was used to document vein patency and for needle entry. A formal ultrasound picture and cardiac rhythm strip was recorded. Vascular Gore Seamer has released the line for use and it is currently dressed with a StatLock, Tegaderm, and CHG disc. Verification has been performed for blood return and line patency. Arm Circumference: 35 CM Equipment: Refresh Body Power PICC Solo Catheter Type: [4FR single lumen PICC] Lot #: [id number]
--- NOTE | 2022-03-07 15:09 | HE.PHANOTE ---
Vancomycin Dosing Addendum Dose given late by nurse as patient was off unit. Dose was due at 11am and wasnt given till 1500. Vancomycin times adjusted. Trough now due for 03/08/22 @1300.
[2022-03-07 15:29] VITALS: BP 130/71; PULSE 108; RESP 20; TEMP 36.6; O2SAT 95
[2022-03-07 15:44] LABS: Glucose, Whole Blood 209 mg/dL (60-115)
[2022-03-07] MEDS: Insulin Lispro 100 UNIT/ML 3 ML VIAL SUBCUT ×2 (16:41→21:16)
[2022-03-07 19:27] VITALS: BP 129/66; PULSE 103; RESP 20; TEMP 37.4; O2SAT 95
[2022-03-07 19:53] LABS: Glucose, Whole Blood 155 mg/dL (60-115)
[2022-03-07] MEDS: Atorvastatin Calcium 80 MG TABLET PO (21:16)
[2022-03-07] MEDS: 0.9 % Sodium Chloride Flush 10 ML SYRINGE 5 ML IVFLUSH (21:17)
[2022-03-07 23:57] VITALS: BP 144/79; PULSE 110; RESP 18; TEMP 36.4; O2SAT 96
[2022-03-08] MEDS: Enoxaparin Sodium 40 MG/0.4 ML SYRINGE SUBCUT (03:34)
[2022-03-08] MEDS: vancomycin HCL 1,250 MG in 0.9 % Sodium Chloride 250 ML 166.67 MG IV (03:42)
[2022-03-08 03:55] VITALS: BP 151/85; PULSE 96; RESP 18; TEMP 36.2; O2SAT 97
[2022-03-08 07:16] LABS: Hematocrit 43.9 % (42.0-52.0); Hemoglobin 14.7 g/dl (14.0-18.0); Mean Corpuscular HGB Conc 33.5 g/dl (31.0-36.0); Mean Corpuscular Hemoglobin 31.5 pg (27.0-33.0); Mean Corpuscular Volume 94.2 fL (80.0-98.0); Mean Platelet Volume 10.5 fL (9.4-12.4); Platelet Count 256 X10*3/uL (160-400); Red Blood Count 4.66 X10*6/uL (4.60-5.80); Red Cell Distribution Width 13.3 % (11.0-16.0)
[2022-03-08 07:20] VITALS: BP 141/77; PULSE 102; RESP 18; TEMP 36.6; O2SAT 94
[2022-03-08 07:31] LABS: Glucose, Whole Blood 101 mg/dL (60-115)
[2022-03-08 07:38] LABS: Anion Gap 13 (12-20); Blood Urea Nitrogen 10 mg/dL (9-16); Calcium 8.3 mg/dL (8.4-10.2); Carbon Dioxide 24 mmol/L (22-29); Chloride 104 mmol/L (96-108); Estimated Glomerular Filt Rate > 60; Glucose Random 98 mg/dL (60-115); Potassium 4.1 mmol/L (3.3-5.1); Sodium 137 mmol/L (135-145)
--- NOTE | 2022-03-08 08:40 | MHC.CDI.CONC ---
CDI Concurrent Query Documentation Clarification: PHYSICIAN'S DOCUMENTATION REQUEST Date of Query: 03/08/22 0841 Patient Name: Parth Michel Admit Date: 03/04/22 Dear Doctor, A review of the medical record indicates additional documentation may be needed. Please review below and update the documentation accordingly. Clinical Indicators: Risk Factors/Clinical Indicators/Treatments HR 119 WBC 17.7 Osteomyelitis, cellulitis right foot. IV Zosyn Needs PICC line 6 wks IV ertapenem. Please clarify which, if any, of the following is the most likely etiology of the above symptoms and treatment rendered: SIRS Sepsis Systemic manifestations of infection, with 2 or more SIRS criteria which include: - Fever > 100.4F or hypothermia < 96.8 F - Leukocytosis - WBC > 12,000 or leukopenia, WBC < 4,000 or > 10% bands - Tachycardia > 90 beats/minute - Tachypnea - RR > 20 breaths/minute or PaCO2 < 32mmHg Other Unable to determine Use of terms such as suspected, likely, concern for, or probable (associated with a specific diagnosis that is being evaluated, monitored, or treated as if it exists) are acceptable and can be coded in the inpatient setting, when documented at the time of discharge. Thank you, Wilma David [facility], CDIS Extension:[phone] Please use your independent medical judgment in providing your response. THIS QUERY IS PART OF THE PERMANENT MEDICAL RECORD Provider Response: Sepsis Other Diagnosis: no sepsis
[2022-03-08] MEDS: Aspirin Enteric Coated 81 MG TABLET.DR PO (09:43)
[2022-03-08] MEDS: Valsartan 40 MG TABLET PO (09:43)
[2022-03-08] MEDS: Clopidogrel Bisulfate 75 MG TABLET PO (09:44)
[2022-03-08] MEDS: Ertapenem Sodium 1 GM in 0.9 % Sodium Chloride 50 ML IV (09:44)
[2022-03-08] MEDS: Furosemide 40 MG TABLET PO (09:44)
[2022-03-08] MEDS: 0.9 % Sodium Chloride Flush 3 ML SYRINGE IVFLUSH (09:50)
[2022-03-08] MEDS: 0.9 % Sodium Chloride Flush 10 ML SYRINGE 5 ML IVFLUSH (09:50)
--- NOTE | 2022-03-08 10:08 | P.F2F_ITS ---
Service Date Service Date: 03/08/22 Encounter Date of encounter: 03/08/22 Reasons for Services Signs and symptoms assessed: Needs assisted for right foot osteomyelitis, dressing changes and IV antitibiotics Reason for assisted: wound care and administration of IV, SQ, or IM injection Overseeing Care: Starr Anderson Homebound: Leaving the home is medically contraindicated at this time without the asist of a device and/or another person due th the listed conditions above and below. Reason homebound: weakness related to hospital stay Certification: Based on the above findings, I certify that this patient is confined to the home and needs intermittent assisted care, physical therapy and/or speech therapy, or continues to need occupational therapy. The patient is under my care, and I have initiated the establishment of the plan of care. The patient will be followed by a physician who will periodically review the plan of care.
--- NOTE | 2022-03-08 10:13 | PM.DS ---
DS: Providers Provider Date of Service: 03/08/22 Date of admission: 03/04/22 20:19 Date of discharge: 03/08/22 Primary care physician: Starr Anderson MD Consults: 03/04/22 21:34 Consult to Infectious Diseases Routine Consulting Provider: Rachel Bautista Reason for consultation: DM foot ulcer/cellulitis 03/06/22 08:29 Consult to Vascular Surgery Routine Consulting Provider: Cezar Smith Reason for consultation: PAD eval LE, Diabetic foot ulcer, Osteomyelitis Attending physician on discharge: Miguel Gee Discharging clinician: Claudia Cormier DS: Diagnosis Discharge Diagnosis (1) Osteomyelitis of foot: Status: Acute (2) Sepsis: Status: Acute DS: Summary Hospital Course Hospital Course: from H&P on day of admission 56-year-old male with a past medical history of hypertension, hyperlipidemia, diabetes, CAD status post CABG in August 2021; presented to the hospital today with a chief complaint of right foot pain redness and swelling.? Patient reports that he has been having right foot ulcer for many weeks.? Over the past 3 weeks he has been having increased pain, redness, swelling.? Reports he has occasional mild discharge on the socks.? Mentioned that he follows with [facility] usually and has regular wound dressings.? But over the past 3 weeks he noticed that? ulcer has been worsening.? Hence decided to come to the ER for further evaluation.? Patient denies any fever chills cough, denies any chest pain palpitations lightheadedness or dizziness.? Denies any GI symptoms.? Review of all other systems is negative except mentioned above ER course: Per ER team patient noted to have right foot dorsum erythema, and plantar surface ulcer.? X-rays considered with possible osteomyelitis.? Patient was given antibiotics.? Admitted for further management. Sepsis secondary to Right foot osteomyelitis. patient initially met sepsis criteria with tachycardia, leukocytosis. No severe features of sepsis. The patient was started on vancomycin and Zosyn for broad antibiotic coverage. He was seen in consultation by Infectious Diseases who recommended 6 weeks of IV vancomycin or ertapenem. He was transitioned to IV ertapenem for ease of administration. PICC line was placed on March 07. He will be discharged to continue 6 weeks total IV ertapenem. He was seen in consultation by vascular surgery and underwent noninvasive arterial imaging studies. he was noted to have reasonable blood flow to his lower extremity can follow up with vascular surgeon as an outpatient. He should call to schedule follow-up appointment with both Infectious Diseases as well. He will be discharged home with longterm to assist with daily dressing changes and daily antibiotic administration. Leukocytosis has resolved and patient has remained afebrile he is now stable for discharge home. Per surgery: daily dressing change with foam dressing cover with 4x4 and tape Time Spent with Patient Time attestation: Total time spent providing and/or coordinating discharge services: Discharge coordination time: Greater than 30 minutes Quality: Safe Use of Opioids Does Pt have an Active Cancer Diagnosis on the Problem List?: No Quality: Stroke Does the patient have a stroke diagnosis?: No Physical Exam Vital Signs: Vital Signs: Last Vital Signs Temp 98 F 03/08/22 07:20 Pulse 102 H 03/08/22 07:20 Resp 18 03/08/22 07:20 BP 141/77 H 03/08/22 07:20 Pulse Ox 94 03/08/22 07:20 O2 Del Method 03/08/22 07:20 BMI result Body Mass Index 34.8 Const: General: cooperative, comfortable, no acute distress, alert and awake Nutritional Appearance: overweight Orientation/consciousness: patient oriented x3 HEENT: Other: no tongue swelling noted; upper lip dry/cracked Resp: Effort & Inspection: normal respiratory effort and able to speak in complete sentences Auscultation: clear to auscultation bilaterally Cardio: Rate: tachycardic Heart sounds: S1 normal heart sound present and S2 normal heart sound present GI: Inspection: No distended Palpation (GI): Soft to palpation and nontender Skin: Other: dry ulceration base of 5th metatarsal head right foot, no Drainage, no surrounding erythema Neuro: General: patient oriented x3 Extrem: Other: PICC line RUE DS: Data Data Completed and Pending Completed studies during hospitalization [Text1]: Procedures Drainage of Buttock Skin, External Approach (08/19/20) Labs on day of discharge: Laboratory Results - last 24 hr 03/07/22 03/07/22 03/07/22 08:59 11:02 11:57 WBC RBC Hgb Hct MCV MCH MCHC RDW Plt Count MPV Absolute Nucleated RBC Nucleated RBC % (auto) Sodium Potassium Chloride Carbon Dioxide Anion Gap BUN Creatinine Estim Creat Clear Calc Estimated GFR POC Glucose 158 H Random Glucose Calcium Urine Color YELLOW Urine Appearance CLEAR Urine pH 6.0 Ur Specific [place] 1.015 Urine Protein NEG Urine Glucose (UA) >=1000 H Urine Ketones 40 Urine Blood TRACE Urine Nitrite NEG Ur Leukocyte Esterase NEG Urine RBC 1-4 Urine WBC 0 Ur Squamous Epith Cells TRACE Urine Bacteria NONE Vancomycin Trough 12.2 03/07/22 03/07/22 03/08/22 15:32 19:30 05:55 WBC RBC Hgb Hct MCV MCH MCHC RDW Plt Count MPV Absolute Nucleated RBC Nucleated RBC % (auto) Sodium 137 Potassium 4.1 Chloride 104 Carbon Dioxide 24 Anion Gap 13 BUN 10 Creatinine 0.71 Estim Creat Clear Calc 147.0 Estimated GFR > 60 POC Glucose 209 H 155 H Random Glucose 98 Calcium 8.3 L Urine Color Urine Appearance Urine pH Ur Specific [place] Urine Protein Urine Glucose (UA) Urine Ketones Urine Blood Urine Nitrite Ur Leukocyte Esterase Urine RBC Urine WBC Ur Squamous Epith Cells Urine Bacteria Vancomycin Trough 03/08/22 03/08/22 05:55 07:24 WBC 10.0 RBC 4.66 Hgb 14.7 Hct 43.9 MCV 94.2 MCH 31.5 MCHC 33.5 RDW 13.3 Plt Count 256 MPV 10.5 Absolute Nucleated RBC 0.000 Nucleated RBC % (auto) 0.0 Sodium Potassium Chloride Carbon Dioxide Anion Gap BUN Creatinine Estim Creat Clear Calc Estimated GFR POC Glucose 101 Random Glucose Calcium Urine Color Urine Appearance Urine pH Ur Specific [place] Urine Protein Urine Glucose (UA) Urine Ketones Urine Blood Urine Nitrite Ur Leukocyte Esterase Urine RBC Urine WBC Ur Squamous Epith Cells Urine Bacteria Vancomycin Trough Preliminary micro results at discharge 03/04/22 18:10 Blood Culture - Preliminary Blood - Venous No growth after 48 hours. 03/04/22 17:57 Blood Culture - Preliminary Blood - Venous No growth after 48 hours. Discharge Plan Discharge Patient Disposition: Home Health Service Discharge Diagnosis: osteomyelitis of right foot Referrals: [facility]ITE [Outside] - 1 Week Starr Anderson MD [Primary Care Provider] - 1 Week Rachel Bautista MD [Physician] - 1 Month Cezar Smith MD [Physician] - 2 Weeks Discharge Medications: Continued glipizide 10 mg tablet extended release 24hr 1 tab PO DAILY Trulicity 0.75 mg/0.5 mL pen injector 0.75 mg subcut HUSAIN@0900 furosemide 40 mg tablet 1 tab PO QAM atorvastatin 80 mg tablet 1 tab PO BEDTIME clopidogrel 75 mg tablet 1 tab PO QAM aspirin 81 mg tablet,delayed release (DR/EC) 1 tab PO DAILY valsartan 40 mg tablet 1 tab PO DAILY Jardiance 25 mg tablet 1 tab QAM (DME) blood-glucose meter Kit See Rx Instructions .ROUTE DIRECTED Qty: 1 Rx Instructions: As directed Discharge Orders: Discharge Order (Routine); Ordered 03/08/22 Ordered By: Claudia Cormier Activity on Discharge: As tolerated Stand Alone Forms: Patient Portal Discharge page Care Plan Goals: see below Health Concerns: right foot Osteomyelitis diabetes Plan of Treatment: 6 weeks of IV ertapenem - end date 04/15 daily dressing change with foam dressing cover with 4x4 and tape call to schedule follow up with ID call to schedule follow-up appointment with Dr. Smith of vascular surgery follow up with PCP as needed Assessment: see discharge summary Discharge Date/Time: 03/08/22 12:33
[2022-03-08 11:11] VITALS: BP 163/81; PULSE 105; RESP 18; TEMP 37; O2SAT 96
[2022-03-08 11:23] LABS: Glucose, Whole Blood 130 mg/dL (60-115)
--- NOTE | 2022-03-08 11:51 | MHC.CM.PN ---
PATIENT IS DC HOME WITH [facility] FOR 6 WEEKS OF IV ERTAPENEM QD
== END 2022-03-08 12:33 | disposition home health service (06) | DRG 720 ==
LOC: HO.ED 19:45 → HO.EDOVER 20:28 → HO.S3 03-05 08:01
PROVIDERS: Student in an Organized Health Care Education/Training Program; Admitting Provider Hospitalist; Emergency Provider Emergency Medicine; PCP Internal Medicine; Visit Provider Physician Assistant Medical
DX: A41.9 Sepsis, unspecified organism (principal); E11.621 Type 2 diabetes mellitus with foot ulcer; E11.51 Type 2 diabetes mellitus with diabetic peripheral angiopathy without gangrene; L97.519 Non-pressure chronic ulcer of other part of right foot with unspecified severity; E11.69 Type 2 diabetes mellitus with other specified complication; M86.9 Osteomyelitis, unspecified; L03.115 Cellulitis of right lower limb; I25.10 Atherosclerotic heart disease of native coronary artery without angina pectoris; Z95.1 Presence of aortocoronary bypass graft; E78.5 Hyperlipidemia, unspecified; I10 Essential (primary) hypertension; Z20.822 Contact with and (suspected) exposure to COVID-19; Z79.02 Long term (current) use of antithrombotics/antiplatelets; Z79.82 Long term (current) use of aspirin; Z79.899 Other long term (current) drug therapy
CPT/HCPCS: 36415; 36573; 73620; 80048; 80076; 80202; 81001; 82565; 82947; 83605; 85025; 85027; 85652; 86140; 87040; 87635; 93923; 93925; 96361; 96365; 96375; 99285; C1751; J1335; J1650; J2543; J3370

== ENCOUNTER 2022-03-14 16:45 | Outpatient (REF) | payer OTHER, SELFPAY ==
[2022-03-14 16:54] LABS: MANUAL DIFF FLAG NO
[2022-03-14 16:56] LABS: Basophils Absolute Auto 0.1 X10*3/uL (0.0-0.2); Basophils Percent Auto 0.8 % (0-2); Eosinophils Absolute Auto 0.4 X10*3/uL (0.0-0.4); Eosinophils Percent Auto 3.2 % (0-4); Hematocrit 47.7 % (42.0-52.0); Hemoglobin 15.9 g/dl (14.0-18.0); Imm Gran Abs Auto 0.06 X10*3/uL (0.00-0.03); Imm Gran Pct Auto 0.5 % (0.0-0.4); Mean Corpuscular HGB Conc 33.3 g/dl (31.0-36.0); Mean Corpuscular Hemoglobin 32.1 pg (27.0-33.0); Mean Corpuscular Volume 96.2 fL (80.0-98.0); Mean Platelet Volume 10.9 fL (9.4-12.4); Monocytes Absolute Auto 0.8 X10*3/uL (0.1-1.2); Monocytes Percent Auto 6.4 % (2-11); Neutrophils Percent Auto 65.1 % (45-73); Platelet Count 365 X10*3/uL (160-400); Red Blood Count 4.96 X10*6/uL (4.60-5.80); Red Cell Distribution Width 13.5 % (11.0-16.0); White Blood Count 12.3 X10*3/uL (4.8-10.8)
[2022-03-14 17:13] LABS: Anion Gap 14 (12-20); Blood Urea Nitrogen 14 mg/dL (9-16); Calcium 9.3 mg/dL (8.4-10.2); Carbon Dioxide 25 mmol/L (22-29); Chloride 103 mmol/L (96-108); Estimated Glomerular Filt Rate > 60; Glucose Random 162 mg/dL (60-115); Potassium 4.9 mmol/L (3.3-5.1); Sodium 137 mmol/L (135-145)
== END 2022-03-14 16:46 | disposition home or self-care (01) ==
LOC: HO.HVNA 16:45
PROVIDERS: Visit Provider Internal Medicine
DX: M86.9 Osteomyelitis, unspecified (principal); Z79.899 Other long term (current) drug therapy
CPT/HCPCS: 36415; 80048; 85025

== ENCOUNTER → 2022-03-21 09:03 | Outpatient (BNVA) | payer MEDICAID, SELFPAY | PROVIDERS: PCP Pediatrics; Visit Provider Surgery Vascular Surgery | DX: M86.9 Osteomyelitis, unspecified (principal) | CPT/HCPCS: 99212 ==

== ENCOUNTER → 2022-04-11 09:21 | Outpatient (BNVA) | payer OTHER, SELFPAY | PROVIDERS: PCP Pediatrics; Visit Provider Surgery Vascular Surgery | DX: E11.51 Type 2 diabetes mellitus with diabetic peripheral angiopathy without gangrene (principal); L97.519 Non-pressure chronic ulcer of other part of right foot with unspecified severity; M86.9 Osteomyelitis, unspecified; M72.6 Necrotizing fasciitis | CPT/HCPCS: 99212 ==

== ENCOUNTER 2022-04-15 11:33 | Outpatient (REF) | payer OTHER, SELFPAY | END 2022-04-15 11:34 | disposition home or self-care (01) | LOC: HO.RADIR 11:33 | PROVIDERS: PCP Pediatrics; Visit Provider Internal Medicine | DX: M86.9 Osteomyelitis, unspecified (principal) | CPT/HCPCS: 99212 ==

== ENCOUNTER 2022-10-16 11:09 | Outpatient (REF) | payer MEDICAID, SELFPAY ==
--- NOTE | ~2022-10-16 | XR_ITS ---
EXAMINATION: XR FOOT, RIGHT CLINICAL INFORMATION: Pain. COMPARISON: Radiographs dated 03/04/2022. TECHNIQUE: AP, lateral, and oblique views of the right foot. FINDINGS: Bony alignment and mineralization are normal. There has been a prior debridement of the lateral aspect of the distal right fifth metatarsal bone, with sharp debridement margin. No abnormal bone erosion is seen. There is no fracture, dislocation or right ankle joint effusion. Boehler's angle is normal. There is no significant calcaneal spur. There are degenerative changes of the dorsal midfoot. No soft tissue gas, foreign body or focal swelling is noted. XR/XR foot RT min 3V IMPRESSION: There has been a prior debridement of the distal right fifth metatarsal, with sharp debridement margin. There is no current finding to suggest osteomyelitis.
== END 2022-10-16 11:10 | disposition home or self-care (01) ==
LOC: HO.XRAY 11:09
PROVIDERS: PCP Pediatrics; Visit Provider Pediatrics
DX: M79.671 Pain in right foot (principal)
CPT/HCPCS: 73630

== ENCOUNTER 2023-11-25 10:38 | Outpatient (REF) | payer MEDICAID, SELFPAY ==
[2023-11-25 14:27] LABS: MANUAL DIFF FLAG NO
[2023-11-25 14:50] LABS: Alanine Aminotransferase 32 U/L (0-40); Albumin Level 3.9 g/dL (3.5-5.0); Alkaline Phosphatase 109 U/L (39-117); Anion Gap 16 (12-20); Aspartate Amino Transferase 17 U/L (5-37); Bilirubin Direct 0.1 mg/dL (0.0-0.5); Bilirubin Total 0.3 mg/dL (0.0-1.0); Blood Urea Nitrogen 29 mg/dL (9-16); Calcium 10.2 mg/dL (8.4-10.2); Carbon Dioxide 29 mmol/L (22-29); Chloride 103 mmol/L (96-108); Cholesterol 154 mg/dL (<200); Estimated Glomerular Filt Rate > 60; Glucose Fasting 289 mg/dL (60-99); HDL Cholesterol 34 mg/dL (>40); LDL Cholesterol Calculated 90 mg/dL (<100); Potassium 4.6 mmol/L (3.3-5.1); Sodium 143 mmol/L (135-145); Total Protein 7.3 g/dL (6.5-8.0); Triglycerides 154 mg/dL (<150)
[2023-11-25 14:51] LABS: Basophils Absolute Auto 0.1 X10*3/uL (0.0-0.2); Basophils Percent Auto 0.6 % (0-2); Eosinophils Absolute Auto 0.3 X10*3/uL (0.0-0.4); Eosinophils Percent Auto 2.4 % (0-4); Hematocrit 52.2 % (42.0-52.0); Hemoglobin 17.4 g/dl (14.0-18.0); Imm Gran Abs Auto 0.03 X10*3/uL (0.00-0.03); Imm Gran Pct Auto 0.3 % (0.0-0.4); Lymphocytes Absolute Auto 2.4 X10*3/uL (1.2-4.9); Lymphocytes Percent Auto 20.9 % (20-40); Mean Corpuscular HGB Conc 33.3 g/dl (31.0-36.0); Mean Corpuscular Hemoglobin 33.3 pg (27.0-33.0); Mean Corpuscular Volume 99.8 fL (80.0-98.0); Mean Platelet Volume 11.7 fL (9.4-12.4); Monocytes Absolute Auto 0.8 X10*3/uL (0.1-1.2); Monocytes Percent Auto 7.1 % (2-11); Neutrophils Absolute Auto 7.8 x10*3/uL (2.0-8.3); Neutrophils Percent Auto 68.7 % (45-73); Platelet Count 257 X10*3/uL (160-400); Red Blood Count 5.23 X10*6/uL (4.60-5.80); Red Cell Distribution Width 13.4 % (11.0-16.0); White Blood Count 11.3 X10*3/uL (4.8-10.8)
[2023-11-25 15:01] LABS: Creatinine Urine 41.56 mg/dL; Microalbumin Urine < 5.0 mg/L
[2023-11-25 15:08] LABS: TSH reflex Free T4 1.68 uIU/mL (0.32-4.0)
== END 2023-11-25 10:39 | disposition home or self-care (01) ==
LOC: HO.CHCLDS 10:38
PROVIDERS: Visit Provider Pediatrics
DX: E11.3513 Type 2 diabetes mellitus with proliferative diabetic retinopathy with macular edema, bilateral (principal)
CPT/HCPCS: 36415; 80048; 80061; 80076; 82043; 82550; 82570; 84443; 84550; 85025

== ENCOUNTER 2024-01-09 09:46 | Outpatient (AMB) | payer MEDICAID, SELFPAY ==
--- NOTE | 2024-01-09 09:46 | MHC.OFFVIS ---
Vital Signs 01/09/24 09:53 Height 5 ft 11 in Weight 280 lb BMI 39.0 Handedness Right Intake Visit Reasons: new pt - right pinky finger contraction Intake Note: Parth is a 58 year old right hand dominant male who presents today as a new patient for a evaluation of his right pinky finger carri. Patient reports he noticed his pinky finger not straightening out for a couple years. He states that it is not causing him any pain. Allergies No Known Allergies [No Known Allergies*] Allergy (Verified 01/09/24 09:50) HPI HPI new pt - right pinky finger contraction: Details: 58-year-old right hand dominant male who presents in the office today, as a new patient, for an evaluation of a right little finger trigger finger. Patient was seen by his PCP on 11/26/2023 who referred him to our office. While in the office today the patient reports he is unable to straighten the right little finger and therefore it has been held in flexion for many years. He denies pain being caused by being unable to straighten the right little finger. Patient has a significant medical history of uncontrolled diabetes mellitus, type 2, with progressive disease. His last A1c was 10 on 11/25/2023. Next A1c is scheduled for 8 weeks from 11/25/2023. FORMERLY [facility], [facility] Medical History Adopted Diabetes HTN (hypertension) Necrotizing fasciitis PAD (peripheral artery disease) Surgical History History of incision and drainage Family History Mother No problems noted. Father No problems noted. Social History Household Members: Significant Other Housing: Apartment Do you presently have visiting nurse or other home services: No Alcohol intake: current Alcohol intake frequency: holidays/special occasions only Patient Tobacco Use Status: Former Tobacco user Cigarettes Per Day: 0.5 Second Hand Smoke Exposure: No Substance Use Type: Marijuana service: No Current occupational status: disabled Review of Systems Const All systems reviewed & are unremarkable except as noted in HPI and below Physical Exam Vital Signs: BMI result Body Mass Index 39.0 Const General: cooperative and no acute distress Orientation/consciousness: patient oriented x3 Resp Effort & Inspection: normal respiratory effort and able to speak in complete sentences Cardio Peripheral pulses: Peripheral pulses 2+ throughout Skin General skin exam: no rashes or lesions noted Neuro General: patient oriented x3 Extrem Other: Right hand: Ring and little fingers on the palmar aspect of the right hand have a palpable cord. 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 Flexion of the little finger to 20 degrees and flexion of the ring finger to 10 degrees. Able to make a full fist. Sensation intact. Capillary refill is brisk. Assessment & Plan Assessment & Plan (1) Dupuytren's contracture of right hand: Code(s): M72.0 - Palmar fascial fibromatosis [Dupuytren] Category: Medical (2) Diabetes: Code(s): E11.9 - Type 2 diabetes mellitus without complications Category: Medical Plan Mr. Michel is a 58-year-old right hand dominant male who presents in the office today, as a new patient, for an evaluation of a right little finger trigger finger. Patient was seen by his PCP on 11/26/2023 who referred him to our office. While in the office today the patient reports he is unable to straighten the right little finger and therefore it has been held in flexion for many years. He denies pain being caused by being unable to straighten the right little finger. Patient has a significant medical history of uncontrolled diabetes mellitus, type 2, with progressive disease. His last A1c was 10 on 11/25/2023. Next A1c is scheduled for 8 weeks from 11/25/2023. Due to the patient?s most recent A1c of 10 on 11/26/2023 he is currently not a good surgical candidate. I discussed this with the patient that he will need to lower his A1c to at least 8 before we would be able to further discuss surgical options. Follow up will be PRN, or sooner if needed. Patient Instructions: Scribed by Krissy Negrete medical records coder, reece Perez PA-C on 01/09/2024 at 9:50 am, EST. Coding Level of Care Code New Pt Level 4 (97192) Diagnoses Dupuytren's contracture of right hand M72.0 Diabetes E11.9
[2024-01-09 09:53] VITALS: BMI 39.0
== END 2024-01-09 10:12 | disposition home or self-care (01) ==
PROVIDERS: PCP Pediatrics; Visit Provider Physician Assistant
DX: M72.0 Palmar fascial fibromatosis [Dupuytren] (principal); E11.9 Type 2 diabetes mellitus without complications
CPT/HCPCS: 99204

== ENCOUNTER → 2024-01-09 09:46 | Outpatient (BNVA) | payer MEDICAID, SELFPAY | PROVIDERS: PCP Pediatrics; Visit Provider Physician Assistant | DX: M72.0 Palmar fascial fibromatosis [Dupuytren] (principal); E11.9 Type 2 diabetes mellitus without complications | CPT/HCPCS: 99202; 99212 ==

== ENCOUNTER 2024-11-15 11:38 | Outpatient (REF) | payer MEDICAID, SELFPAY ==
--- OUTSIDE RECORDS SUMMARY | 2024-11-15 13:22 | XMS_ITS | Encounter Summary ---
Author Organization [employer] Address [address] [place] [address] 7 [place] [address] Care Team Providers Care Agile Developer Name Role Phone Starr Anderson MD Primary Care Provider [phone] Etelvina Hu PharmD Unavailable [phone] Encounter Details Date Type Department Care Team (Late Contact Info) Description 04/15/2023 Orders Only [facility] [address] [place] [address] Yasemin Epstein LPN Social History Tobacco Use Types Packs/Day Years Used Date Smoking Tobacco: Every Day Cigarettes Passive Smoke Exposure: Current Smokeless Tobacco: Never Sex and Gender Information Value Date Recorded Sex Assigned at Male 06/17/2022 10:19 AM EDT Legal Sex Male 10:19 AM EDT Gender Identity Male 06/17/2022 10:19 AM EDT Sexual Orientation Straight 06/17/2022 10 :19 AM EDT documented as of this encounter Plan of Treatment Upcoming Encounters Date Type Department Care Team (Late Contact Info) Description 12/10/2024 9:00 AM EDT Medication Management [facility] [address] [place] [address] Etelvina Hu, PharmD [address] [place] [address] 12/17/2024 9:45 AM EDT Office Visit [facility] [address] [place] [address] Starr Anderson MD [address] [place] [address] documented as of this encounter Visit Diagnoses Not on filedocumented in this encounter Care Teams Agile Developer Relationship Specialty Start Date End Date Starr Anderson MD [address] [place] [address] PCP - General Family Medicine 08/18/18 Etelvina Hu, LisaD [address] [place] [address] Pharmacist Internal Medicine 10/05/24 documented as of this encounter
--- OUTSIDE RECORDS SUMMARY | 2024-11-15 13:22 | XMS_ITS | Clinical Summary ---
Author Organization [employer] Address [address] [place] [address] Care Team Providers Care Milk Route Supervisor Name Role Phone Starr Anderson MD Primary Care Provider [phone] Etelvina Hu PharmD Unavailable [phone] Allergies No known active allergies Medications valsartan (Diovan) 40 MG tablet Take 40 mg by mouth in the morning. 08/07/20 22 Active carvedilol (Coreg) 6.25 MG tablet TAKE ONE TABLET IN THE MORNING AND EVENING WITH FOOD 12/11/19 23 Active FREESTYLE LITE test strip TEST BLOOD SUGAR TWICE DAILY 100 strip 5 05/20/20 23 Active empagliflozin (Jardiance) 25 MG TAKE ONE TABLET EVERY MORNING 30 tablet 11 12/02/19 24 Active Aspirin Adult Low Strength 81 MG EC tablet TAKE ONE TABLET EVERY MORNING 90 tablet 3 12/27/19 24 Active atorvastatin (Lipitor) 80 MG tablet TAKE ONE TABLET EVERY MORNING 90 tablet 3 05/19/20 24 Active furosemide (Lasix) 40 MG tablet TAKE ONE TABLET EVERY MORNING 90 tablet 3 05/19/20 24 Active glipiZIDE XL (Glucotrol XL) 10 MG 24 hr tabletIndications:Ty pe 2 diabetes mellitus with mild nonproliferative retinopathy, with long-term current use of insulin, macular edema presence unspecified, unspecified laterality (CMS/HCC) TAKE ONE TABLET EVERY MORNING 90 tablet 3 05/19/20 24 Active Blood Glucose Monitoring Suppl (Blood Glucose Monitor System) w/Device kitIndications: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 1 kit 06/03/20 24 Active metFORMIN (Glucophage) 1000 MG tablet Take 1 tablet (1,000 mg) by mouth with breakfast and with evening meal. 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 2 mL 2 10/05/19 25 Active Active Problems Problem Noted Date Diagnosed Date Personal history of atrial flutter 04/16/2023 Coronary artery disease invo lving habematolel coronary artery of habematolel heart without angina pectoris 09/10/2022 Type 2 diabetes mellitus 08/21/2022 Hyperlipidemia 08/21/2022 Morbid obesity with body mass index (BMI) of 40. 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, unspecified whether long term care administrator insulin use (CMS/HCC) (Primary Dx) 09/15/2024 Telephone [facility] [address] [place], [place] [phone] Etelvina Hu PharmD 09/13/2024 Refill [facility] [address] [place] [address] Starr Anderson MD Typical atrial flutter (CMS/HCC) from Last 3 Months Immunizations Name Administration Dates Next Due HepB-CpG 01/10/2022,12/06/2021 Influenza Injectable Quadriv alant Preservative Free IIV4 MDCK 07/07/2023,06/12/2022 Influenza injectable quadriv alent IIV4 with preservative 07/18/2015 Influenza injectable quadriv alent preservative free 06/14/2021,06/19/2020,09/18/2018 Influenza, IIV3, injectable 05/24/2010 Influenza, Split (incl. isabela fied surface antigen) 06/22/2013,05/22/2012 Influenza, seasonal, injecta ble, preservative free 06/03/2024 Pfizer Covid-19 Vaccine 12+ 06/03/2024, 3 Pfizer Covid-19 Vaccine 12+ Bivalent 09/04/2022 Pneumococcal Conjugate PCV 20 10/05/2024 Pneumococcal Polysaccharide PPSV23 08/26/2007 TD (adult), 2 Lf tetanus tox oid, preservative free, adsorbed 10/16/2007 Tdap 08/14/2015 Zoster, Recombinant 02/25/2019,09/18/2018 Social History Tobacco Use Types Packs/Day Years Used Date Smoking Tobacco: Every Day Cigarettes Passive Smoke Exposure: Current Smokeless Tobacco: Never Alcohol Answer Date Recorded Frequency of Alcohol Consumption Not on file 06/03/2024 Average Number of Drinks Not on file 024 Frequency of Binge Drinking Not on file 05/18 Score 0 06/03/2024 Depression Answer Date Recorded Patient Health Questionnaire-9 Score 2 06/03/2024 Patient Health Questionnaire-9 Score 2 06/03/2024 Last PHQ-9: Questionnaire Data Not on file 1 Housing Stability Answer Date Recorded What is your housing situation today? I have jensen gill 11/14/[address] you li ve. Do you have problems with any of the following? None of the above 11/14/2023 Food Insecurity Answer Date Recorded Within the past 12 months, y ou worried that your food would run out before you got money to buy more: Never True 11/14/2023 Within the past 12 months,th e food you bought just didn't last and you didn't have enough money to get more: Never True Transportation Answer Date Recorded In the past 12 months, has l ack of transportation kept you from medical appts, meetings, work or from getting things needed for daily living? No 11/14/2023 Utilities Answer Date Recorded In the past 12 months, has t he electric, gas, oil or water company threatened to shut off services in your home? No 11/14/2023 Depression Answer Date Recorded Patient Health Questionnaire-2 Score 1 06/03/2024 Sex and Gender Information Value Date Recorded Sex Assigned at Male 06/17/2022 10:19 AM EDT Legal Sex Male 10:19 AM EDT Gender Identity Male 06/17/2022 10:19 AM EDT Sexual Orientation Straight 06/17/2022 10 :19 AM EDT Last Filed Vital Signs Vital Sign Reading Time Taken Comments Blood Pressure 112/72 10/05/2024 10:27 AM EST Pulse 100 10/05/2024 10:27 AM EST Temperature 36.5 ??C (97.7 ??F) 08/03/2024 9:50 AM ES T Respiratory Rate 20 08/03/2024 9:50 AM EST Oxygen Saturation 98% 08/03/2024 9:50 AM EST Inhaled Oxygen Concentration - - Weight 128 kg (282 lb) 08/03/2024 9:50 AM EST Height 180.3 cm (5' 11 ) 08/03/2024 9:50 AM EST Body Mass Index 39.33 08/03/2024 9:50 AM EST Plan of Treatment Upcoming Encounters Date Type Department Care Team (Late st Contact Info) Description 12/10/2024 9:00 AM EDT Medication Management [facility] [address] [place] [address] Etelvina Hu PharmD [address] [place] [address] 12/17/2024 9:45 AM EDT Office Visit [facility] [address] [place] [address] Starr Anderson MD [address] [place] [address] Health Maintenance Due Date Last Done Comments CT Colonography 1964 Colonoscopy 1964 Colorectal Cancer Screening 1964 Dental Oral Exam 1964 Dental Prophylaxis 1964 Dental X-Ray: Bitewings 1964 Dental X-Ray: Full Mouth 1964 FIT DNA/Cologuard 1964 FIT 1964 FOBT 1964 HIV Screening 1964 Sigmoidoscopy 1964 Diabetes: Foot Exam 1974 Eye Exam 1974 Hepatitis C Screening 1982 SDOH Screening 11/13/2024 11/14/2023 Diabetes: Urine Protein Screening 11/24/2024 11/25/2023, 01/04/2022, 02/09/2021, Additional history exists Lipid Panel 11/24/2024 11/25/2023, 08/19, 01/04/2022, Additional history exists Diabetes: Hemoglobin A1C 01/02/2025 025, 06/03/2024, 11/25/2023, Additional history exists Alcohol/Substance Use Screening 06/03/2025 06/03/2024 Depression Screening 06/03/2025 06/03/2024, 06/03/20 24 Tobacco Screening 08/03/2025 08/03/2024 DTaP/Tdap/Td Vaccines (2 - Td or Tdap) 08/14/2025 08/14/2015, 10/16/2007 RSV Patients and Patients Aged 60 years or older (1 - 1-dose 75+ series) 12/01/2039 Zoster Vaccines Completed 02/25/2019, 09/18/2018 Hepatitis B Vaccines Completed 01/10/2022, 12/07/19 22 COVID-19 Vaccine Completed 06/03/2024, , 09/04/2022, Additional history exists Influenza Vaccine Completed 06/03/2024, , 06/12/2022, Additional history exists Pneumococcal Vaccine: 50+ Years Completed 10/05/2024, 08/26/2007 HIB Vaccines Aged Out No longer eligi ble based on patient's age to complete this topic HPV Vaccines Aged Out No longer eligi ble based on patient's age to complete this topic Hepatitis A Vaccines Aged Out No long er eligible based on patient's age to complete this topic IPV Vaccines Aged Out No longer eligi ble based on patient's age to complete this topic Meningococcal Vaccine Aged Out No jose carlos eligible based on patient's age to complete this topic RSV under 20 months Aged Out No longe r eligible based on patient's age to complete this topic Rotavirus Vaccines Aged Out No longer eligible based on patient's age to complete this topic Procedures Procedure Name Priority Date/Time Associated Diagnosis Comments POCT GLYCATED HEMOGLOBIN, TOTAL Routine 10/05/2024 10:17 AM EST 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, unspecified whether long term care administrator insulin use ([facility]) ALBUMIN, RANDOM URINE W/CREATININE Routine 11/25/2023 10:44 AM EDT 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, unspecified whether long term care administrator insulin use ([facility]) LIPID PANEL, STANDARD Routine 11/25/2023 10:40 AM EDT 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, unspecified whether half-way insulin use ([facility]) from Last 3 Months or Most Recently Relevant to Health Maintenance Results * (ABNORMAL) POCT A1C (10/05/2024 10:17 AM EST) Hemoglobin A1C 10.4(A) 4.0 - 6.0 % QC Media Lot # [id number] Lot# Expiration Date ,134,[id number] Blood 10/05/2024 10:1 7 AM EST Starr Anderson MD POINT OF CARE TEST ENTER/EDIT ORDERABLES Final Result * Albumin, Random Urine W/Creatinine (11/25/2023 10:44 AM EDT) Creatinine, Urine 41.56 mg/dL [facility] Microalbumin Urine <5.0 mg/L [facility] Microalbum Creatinine Ratio Ur TNP <30 ug/mg cr [facility] Comment:Unable to calculate albumin/creatinine ratio due to lowmicroalbumin or creatinine result. Urine (Urine, Random) 11/25/2023 10:44 AM EDT 11/25/2023 2:16 PM EDT us Starr Anderson MD LAB URINE ORDERABLES Final Re sult Performing Organization Address [facility] Co de Phone Number [facility] [address] [place] [address] [phone] * (ABNORMAL) Lipid Panel, Standard (11/25/2023 10:40 AM EDT) Triglycerides 154(H) <150 mg/dL [facility] Comment:Desirable Triglyceri de: less than 150 mg/dLBorderline High Triglyceride 150-199 mg/dLHigh Triglyceride: 200-499 mg/dLVery High Triglyceride: greater than or equal to 5OO mg/dL Cholesterol 154 <200 mg/dL [facility] Comment:Desirable Cholestero l: less than 200 mg/dLBorderline High Cholesterol: 200-239 mg/dLHigh Cholesterol: greater than 239 mg/dL LDL Cholesterol Calculated 90 <100 mg/dL [facility] Comment:Desirable LDL: less than 100 mg/dLNear Optimal/Above Optimal LDL: 110- 129 mg/dLBorderline High LDL: 130-159 mg/dLHigh LDL: 160-189 mg/dLVery High LDL: greater than or equal to 190 mg/dL HDL Cholesterol 34(L) >40 mg/dL [facility] Comment:Desirable HDL: great er than 40 mg/dL Note: This HDL assay may give artificially low results in patients with liver disease. Blood Venous blood specimen / Unknown 11/25/2023 10:40 AM EDT 11/25/2023 2:20 PM EDT us Starr Anderson MD LAB BLOOD ORDERABLES Final Re sult Performing Organization Address [facility] Co de Phone Number [facility] [address] [place] [address] [phone] from Last 3 Months or Most Recently Relevant to Health Maintenance Insurance [facility] MEDICAID STAND ADULT Care Teams Milk Route Supervisor Relationship Specialty Start Date End Date Starr Anderson MD [address] [place] [phone] PCP - General Family Medicine 08/18/18 Etelvina Hu, PharmD [address] [place] [address] Pharmacist Internal Medicine 10/05/24
--- OUTSIDE RECORDS SUMMARY | 2024-11-15 13:22 | XMS_ITS | Encounter Summary ---
Author Organization [employer] Address [address] [place] [address] Care Team Providers Care Senior Software Development Manager Name Role Phone Starr Anderson MD Primary Care Provider [phone] Etelvina Hu PharmD Unavailable [phone] Encounter Details Date Type Department Care Team (Latest Contact Info) Description 11/15/2024 Travel Social History Tobacco Use Types Packs/Day Years [...] Description 12/10/2024 9:00 AM EDT Medication Management [facility] [address] [place] [address] Etelvina Hu PharmD [address] [place] [address] 12/17/2024 9:45 AM EDT Office Visit [facility] [address] [place] [address] Starr Anderson MD [address] [place] [address] documented as of this encounter Visit Diagnoses Not on filedocumented in this encounter Additional Health Concerns Assessment Noted Time PHQ-9 Depression Total Score: 2 06/03/20 24 10:49 AM EDT documented as of this encounter Care Teams Senior Software Development Manager Relationship Specialty Start Date End Date Starr Anderson MD [address] [place] [address] PCP - General Family Medicine 08/18/18 Etelvina Hu PharmD [address] [place] [address] Pharmacist Internal Medicine 10/05/24 documented as of this encounter
--- OUTSIDE RECORDS SUMMARY | 2024-11-15 13:22 | XMS_ITS | Encounter Summary ---
Author Organization [employer] Address [address] 7t [place] [address] Care Team Providers Care Senior Trainer Name Role Phone Starr Anderson MD Primary Care Provider [phone] Etelvina Hu PharmD Unavailable [phone] Reason for Visit * Reason Comments Med Refill Encounter Details Date Type Department Care Team (Late Contact Info) Description 09/16/2022 Refill [facility] [address] [place] [address] Starr Anderson MD [address] [place] [address] Typical atrial flutter (CMS/HCC) Social History Tobacco Use Types Packs/Day Years Used Date Smoking Tobacco: Every Day Cigarettes Passive Smoke Exposure: Current Smokeless Tobacco: Never Sex and Gender Information Value Date Recorded Sex Assigned at Male 06/17/2022 10:19 AM EDT Legal Sex Male 10:19 AM EDT Gender Identity Male 06/17/2022 10:19 AM EDT Sexual Orientation Straight 06/17/2022 10 :19 AM EDT COVID-19 Exposure Response Date Recorded In the last 10 days, have yo u been in contact with someone who was confirmed or suspected to have Coronavirus/COVID-19? No / Unsure 09/18/2022 1:24 PM EST documented as of this encounter Plan of Treatment Upcoming Encounters Date Type Department Care Team (Late Contact Info) Description 12/10/2024 9:00 AM EDT Medication Management [facility] [address] [place] [address] Etelvina Hu PharmD [address] [place] [address] 12/17/2024 9:45 AM EDT Office Visit [facility] [address] [place] [address] Starr Anderson MD [address] [place] [address] documented as of this encounter Visit Diagnoses Diagnosis Typical atrial flutter (CMS/HCC) documented in this encounter Care Teams Senior Trainer Relationship Specialty Start Date End Date Starr Anderson MD [address] [place] [address] PCP - General Family Medicine 08/18/18 Etelvina Hu PharmD [address] [place] [address] Pharmacist Internal Medicine 10/05/24 documented as of this encounter
--- OUTSIDE RECORDS SUMMARY | 2024-11-15 13:23 | XMS_ITS | Encounter Summary ---
Author Organization [employer] Address [address] [place] [address] 7[address] [place] [address] Care Team Providers Care Turbine Measurements Engineer Name Role Phone Starr Anderson MD Primary Care Provider [phone] Etelvina Hu PharmD Unavailable [phone] Encounter Details Date Type Department Care Team ([facility] Contact Info) Description 07/30/2022 Abstract [facility] [address] [place] [address] Dental, Provider, DDS Social History Tobacco Use Types Packs/Day Years Used Date Smoking Tobacco: Never Assessed Sex and Gender Information Value Date Recorded [...] suspected to have Coronavirus/COVID-19? No / Unsure 07/31/2022 7:54 AM EST documented as of this encounter Plan of Treatment Upcoming Encounters Date Type Department Care Team ([facility] Contact Info) Description 12/10/2024 9:00 AM EDT Medication Management [facility] [address] [place] [address] Etelvina Hu, PharmD [address] [place], [place] [phone] 12/17/2024 9:45 AM EDT Office Visit [facility] [address] [place] [address] Starr Anderson MD [address] [place] [address] documented as of this encounter Procedures Procedure Name Priority Date/Time Associated Diagnosis Comments 31,30,29,28,27,26,25,24 ,23,22,21,20,19,18 PARTIAL DENTURE - RESIN Routine 07/30/2022 12:00 AM EST Max COMPLETE DENTURE Routine 07/30/2022 12:00 AM EST documented in this encounter Visit Diagnoses Not on filedocumented in this encounter Care Teams Turbine Measurements Engineer Relationship Specialty Start Date End Date Starr Anderson MD [address] [place] [address] PCP - General Family Medicine 08/18/18 Etelvina Hu PharmD [address] [place] [phone] Pharmacist Internal Medicine 10/05/24 documented as of this encounter
[2024-11-15 16:06] LABS: Creatinine Urine 49.45 mg/dL; Microalbum/Creatinine Ratio Ur 24.2 ug/mg cr (<30)
[2024-11-15 16:20] LABS: Vitamin B12 355 pg/mL (200-900)
[2024-11-15 17:13] LABS: Alanine Aminotransferase 28 U/L (0-40); Albumin Level 3.7 g/dL (3.5-5.0); Alkaline Phosphatase 95 U/L (39-117); Anion Gap 14 (12-20); Aspartate Amino Transferase 31 U/L (5-37); Bilirubin Total 0.3 mg/dL (0.0-1.0); Blood Urea Nitrogen 20 mg/dL (9-16); Calcium 9.2 mg/dL (8.4-10.2); Carbon Dioxide 25 mmol/L (22-29); Chloride 106 mmol/L (96-108); Cholesterol 135 mg/dL (<200); Estimated Glomerular Filt Rate > 60; Glucose Random 170 mg/dL (60-115); HDL Cholesterol 34 mg/dL (>40); LDL Cholesterol Calculated 79 mg/dL (<100); Potassium 4.8 mmol/L (3.3-5.1); Sodium 140 mmol/L (135-145); Total Protein 6.9 g/dL (6.5-8.0); Triglycerides 113 mg/dL (<150)
== END 2024-11-15 11:39 | disposition home or self-care (01) ==
LOC: HO.CHCLDS 11:38
PROVIDERS: Visit Provider Pediatrics
DX: E11.3513 Type 2 diabetes mellitus with proliferative diabetic retinopathy with macular edema, bilateral (principal)
CPT/HCPCS: 36415; 80053; 80061; 82043; 82570; 82607

== ENCOUNTER 2024-12-24 16:45 | Emergency (ER) | payer OTHER, SELFPAY ==
[2024-12-24 16:48] VITALS: BP 143/86; PULSE 109; RESP 18; TEMP 36.7; O2SAT 96; BMI 37.1
--- NOTE | 2024-12-24 16:48 | ED_ITS ---
HPI - Extremity Injury (Lower) General Chief Complaint: Wound/Laceration Stated Complaint: R toe lac ? on thinners/diabetic Time Seen by Provider: 12/24/24 21:30 Source: patient and old records reviewed Mode of arrival: ambulatory Limitations: no limitations History of Present Illness ED Provider: KEATON HPI Narrative: 59 yo male with PMH of CAD s/p CABG on plavix, DM, HTN, prior osteomyelitis of foot - has chronic R foot callous and has been using tape and scraping it. He then got this very sticky tape stuck on the callous and pulled it off yesterday causing the dermis to pull off. He still had the very sticky tape stuck so he used a pocket knife to scarp it off and unfortunately sliced the other side of his foot. He is unsure of Tdap. No other injuries. complaint: foot injury Onset (ago): hour(s) (4pm today) Injury: Right: foot Type of Injury: laceration Place: home Severity: moderate Relieving factors: nothing Exacerbating factors: movement and palpation Context: other Associated symptoms: able to partially bear weight Other symptoms: none Treatments prior to arrival: bandage Related Data Home Medications ?Medication ?Instructions ?Recorded ?Confirmed glipizide 10 mg tablet, extended 1 tab PO DAILY 08/19/20 03/04/22 release 24 hr blood-glucose meter #1 ea 09/01/20 09/01/20 aspirin 81 mg tablet,delayed 1 tab PO DAILY 03/04/22 03/04/22 release atorvastatin 80 mg tablet 1 tab PO BEDTIME 03/04/22 03/04/22 clopidogrel 75 mg tablet 1 tab PO QAM 03/04/22 03/04/22 empagliflozin 25 mg tablet 1 tab QAM 03/04/22 03/04/22 (Jardiance) furosemide 40 mg tablet 1 tab PO QAM 03/04/22 03/04/22 valsartan 40 mg tablet 1 tab PO DAILY 03/04/22 03/04/22 dulaglutide 1.5 mg/0.5 mL 1.5 mg subcut QWEEK 04/11/22 subcutaneous pen injector (Trulicity) carvedilol 25 mg tablet 25 mg PO BID 01/09/24 empagliflozin 25 mg tablet 25 mg PO QAM 01/09/24 (Jardiance) metformin 1,000 mg tablet,extended 1,000 mg PO QPM 01/09/24 release 24hr (osmotic) Previous Rx's ?Medication ?Instructions ?Recorded doxycycline hyclate 100 mg tablet 100 mg PO BID 30 days #60 tabs 04/15/22 amoxicillin 875 mg-potassium 1 tab PO BID #14 tabs 12/24/24 clavulanate 125 mg tablet Allergies Allergy/AdvReac Type Severity Reaction Status Date / Time No Known Allergies Allergy Verified 12/24/24 16:51 [No Known Allergies*] Review of Systems Review of Systems: Constitutional : No Fever, No Chills, Cardiovascular : No Chest Pain, No SOB Respiratory : No Dyspnea Gastrointestinal : No abdominal pain Musculoskeletal : No Joint Swelling Skin : No rash, positive skin laceration Neuro : No Weakness, No Numbness all other systems reviewed and are negative [facility] Past Medical History Attestation statement: The following information was validated with the patient. Source: old records reviewed Medical History PAD (peripheral artery disease) Adopted Necrotizing fasciitis HTN (hypertension) Diabetes Surgical History History of incision and drainage Family History Family History Mother No problems noted. Father No problems noted. Social History Social History Household Members: Significant Other Housing: Apartment Do you presently have visiting nurse or other home services: No Alcohol intake: current Alcohol intake frequency: holidays/special occasions only Patient Tobacco Use Status: Former Tobacco user Cigarettes Per Day: 0.5 Second Hand Smoke Exposure: No Substance Use Type: Marijuana Advance Directives: No Advance Directives Information Provided: No service: No Current occupational status: disabled Physical Exam Vital Signs: Vital Signs: Last Vital Signs Temp 97.8 F 12/24/24 22:50 Pulse 85 12/24/24 22:50 Resp 18 12/24/24 22:50 BP 145/65 H 12/24/24 22:50 Pulse Ox 97 12/24/24 22:50 O2 Del Method Room Air 12/24/24 22:50 BMI result Body Mass Index 37.1 Appearance: Alert. Oriented X3. No acute distress. Eyes: Pupils equal, round and reactive to light. ENT: Pharynx normal. Neck: Normal inspection. Neck supple. CVS: Normal heart rate and rhythm. Pulses normal. Respiratory: No respiratory distress. Breath sounds normal. Abdomen: Soft and nontender. Skin: Skin warm and dry. Normal skin color. Normal skin turgor. Extremities: No lower extremity edema. R foot lateral aspect near base of 5th metatarsal is a square sheet of missing dermis with evidence of a callous base - bleeding controlled, no warmth, ttp no fluctuance no yellow drainage R foot on medial aspect near 1st MTP on plantar surface 3cm curved superficial laceration bleeding controlled. Neuro: Oriented X 3. No motor deficit. No sensory deficit. CN2-12 intact Course Course Course Narrative: This is an RME performed by Yamilet Galindo CNP: Additional HPI, ROS, PE not included below will be deferred to primary provider. 59 yo male with PMHx of CAD, HTN, PAD, T2DM, s/p CABG (2021) at [facility] on AC, Patient states he was trying to remove a dressing with a knife over the right big toe that was protecting callous. Knife slipped and cut the big toe. Patient reports moderate bleeding and wrapped the toe with rhianna bandage for pressure. He is unaware of last Tdap. PE: 4cm lac over plantar aspect of MTP, active bleeding in triage. Dressed with clean, dry, pressure dressing. Plan: Lac repair per primary provider Medications Administered Discontinued Medications Generic Name Dose Route Start Last Admin Trade Name Freq PRN Reason Stop Dose Admin Amoxicillin/Clavulanate Potassium 875 mg 12/24/24 22:33 12/24/24 22:42 Amoxicillin/Potassium Clav 875 Mg Tablet PO 12/24/24 22:34 875 mg ONCE ONE Administration Diphtheria/Tetanus/Acell Pertussis 0.5 ml 12/24/24 21:49 12/24/24 21:59 Diphth,Pertus(Acell),Tet Adult 0.5 Ml Syringe IM 12/24/24 21:50 0.5 ml .ONCE ONE Administration Lidocaine HCl 5 ml 12/24/24 21:30 12/24/24 21:43 Lidocaine Hcl 1 % Mpf 5 Ml Vial SUBCUT 12/24/24 21:31 5 ml ONCE ONE Administration Medical Decision Making Medical Decision Making MDM Narrative: 59 yo male with PMH of CAD s/p CABG on plavix, DM, HTN, prior osteomyelitis of foot now here with laceration to foot after previously ripping off top layer of his skin trying to manage a callous - he is very high risk for infection and has had osteo before - he has no signs of infection at this time. I have sutured the wound no concern for deeper space injury, irrigated extensively, placed a sterile dressing, he is to use crutches. Will start on augmentin proph given his propensity for infection and DM. Differential Diagnosis Differential Diagnoses: The differential diagnosis associated with the presentation includes laceration, poorly managed callous External Record Review External record reviewed: Inpatient record and Outpatient record Prescription Management I considered prescription management with: Antibiotic Procedures Laceration Laceration 1: Site: lower extremity Side (If applicable): right Size (cm): 3 Description: linear Depth: simple, single layer Local Anesthetic: lidocaine 1% Amount of anesthesia used (mL): 5 Pre-repair: wound explored, irrigated extensively and deep structures intact Skin layer closed with: nylon Size (cm): 3-0 Number of sutures: 3 Technique: simple, interrupted Discharge Plan Discharge Clinical Impression: Laceration Patient Disposition: Home, Self-Care Instructions: Laceration (ED) Additional Instructions: do not get wet wound check on Friday with your doctor change dressing in 48 hours stitches out in 7 to 10 days monitor for pain, fevers, yellow drainage, redness you need to monitor your callous closely you are at serious risk for skin/bone infection Prescriptions: New amoxicillin-pot clavulanate 875-125 mg tablet 1 tab PO BID Qty: 14 0RF No Action glipizide 10 mg tablet extended release 24hr 1 tab PO DAILY furosemide 40 mg tablet 1 tab PO QAM atorvastatin 80 mg tablet 1 tab PO BEDTIME clopidogrel 75 mg tablet 1 tab PO QAM aspirin 81 mg tablet,delayed release (DR/EC) 1 tab PO DAILY valsartan 40 mg tablet 1 tab PO DAILY Jardiance 25 mg tablet 1 tab QAM (DME) blood-glucose meter Kit See Rx Instructions .ROUTE DIRECTED Qty: 1 Rx Instructions: As directed Trulicity 1.5 mg/0.5 mL pen injector 1.5 mg subcut QWEEK doxycycline hyclate 100 mg tablet 100 mg PO BID 30 Days Qty: 60 1RF Jardiance 25 mg tablet 25 mg PO QAM metformin 1,000 mg tablet extended release 24hr 1,000 mg PO QPM carvedilol 25 mg tablet 25 mg PO BID Rx Instructions: must administer with a meal/food Interventions: ED Discharge Assessment Last Done: 12/24/24 22:50 Discharge Date/Time: 12/24/24 22:50 Print Language: Citizen Of [place]
[2024-12-24 20:09] VITALS: BP 145/65; PULSE 85; RESP 18; TEMP 36.6; O2SAT 97
--- OUTSIDE RECORDS SUMMARY | 2024-12-24 20:26 | XMS_ITS | Encounter Summary ---
Author Organization [employer] Address [address] [facility] 7t [place] [address] Care Team Providers Care Joint Setter Name Role Phone Starr Anderson MD Primary Care Provider [phone] Etelvina uH PharmD Unavailable [phone] Reason for Visit * Reason Comments Med Refill Encounter Details Date Type Department Care Team ([facility] Contact Info) Description 12/14/2024 Refill [facility] CHC MED & PEDS [address] [place] [address] Starr Anderson MD [address] [place] [address] Social History Tobacco Use Types Packs/Day Years [...] housing situation today? I have jensen gill 12/17/[address] you li ve. Do you have problems with any of the following? None of the above 12/17/2024 Food Insecurity Answer Date Recorded Within the past 12 months, y ou worried that your food would run out before you got money to buy more: Never True 12/17/2024 Within the past 12 months,th e food you bought just didn't last and you didn't have enough money to get more: Never True 09/2024 Transportation Answer Date Recorded In the past 12 months, has l ack of transportation kept you from medical appts, meetings, work or from getting things needed for daily living? No 12/17/2024 Utilities Answer Date Recorded In the past 12 months, has t he [employer], gas, oil or water company threatened to shut off services in your home? No 12/17/2024 Depression Answer Date Recorded Patient Health Questionnaire-2 Score 1 06/03/2024 Internet Access Answer Date Recorded Internet Access Q1 Yes 12/17/2024 Internet Access Q2 Not on file 12/17/2024 Sex and Gender Information Value Date Recorded Sex Assigned at Male 06/17/2022 10:19 AM EDT Legal Sex Male 10:19 AM EDT Gender Identity Male 06/17/2022 10:19 AM EDT Sexual Orientation Straight 06/17/2022 10 :19 AM EDT documented as of this encounter Plan of Treatment Upcoming Encounters Date Type Department Care Team (Late st Contact Info) Description 01/11/2025 1:30 PM EDT Medication Management [facility] MED & PEDS [address] [place] [address] Etelvina Hu PharmD [address] [place] [address] documented as of this encounter Visit Diagnoses Not on filedocumented in this encounter Additional Health Concerns Assessment Noted Time PHQ-9 Depression Total Score: 2 06/03/20 24 10:49 AM EDT documented as of this encounter Care Teams Joint Setter Relationship Specialty Start Date End Date Starr Anderson MD [address] [place] [address] PCP - General Family Medicine 08/18/18 Etelvina Hu, PharmD [address] [place] [address] Pharmacist Internal Medicine 10/05/24 documented as of this encounter
--- OUTSIDE RECORDS SUMMARY | 2024-12-24 20:26 | XMS_ITS | Encounter Summary ---
Author Organization [employer] Address [address] [facility] [address]t [place] [address] Care Team Providers Care Supervisor Fine Grading Name Role Phone Starr Anderson MD Primary Care Provider [phone] Etelvina Hu PharmD Unavailable [phone] Encounter Details Date Type Department Care Team (Late st Contact Info) Description 12/17/2024 Orders Only [facility] CHC MED & PEDS [address] [facility] [place] [address] Provider, MD Angelina Social History Tobacco Use Types Packs/Day Years [...] your housing situation today? I have jensen jairo 12/17/[address] you li [...] Description 01/11/2025 1:30 PM EDT Medication Management [facility] MED & PEDS [address] [place] [address] Etelvina Hu PharmD [address] [place], [place] [id number] documented as of this encounter Procedures Procedure Name Priority Date/Time Associated Diagnosis Comments COLONOSCOPY Routine 12/15/2018 12:08 PM EDT documented in this encounter Results * Colonoscopy (12/15/2018 12:08 PM EDT) us Historical Provider HEALTH MAINTENANCE Final Result documented in this encounter Visit Diagnoses Not on filedocumented in this encounter Additional Health Concerns Assessment Noted Time PHQ-9 Depression Total Score: 2 06/03/20 24 10:49 AM EDT documented as of this encounter Care Teams Supervisor Fine Grading Relationship Specialty Start Date End Date Starr Anderson MD [address] [place] [address] PCP - General Family Medicine 08/18/18 Etelvina Hu, PharmD [address] [place] [address] Pharmacist Internal Medicine 10/05/24 documented as of this encounter
--- OUTSIDE RECORDS SUMMARY | 2024-12-24 20:26 | XMS_ITS | Encounter Summary ---
Author Organization [employer] Address [address] [place] [address] 7 [place] [address] Care Team Providers Care Mixer Dry Food Products Name Role Phone Starr Anderson MD Primary Care Provider [phone] Etelvina Hu PharmD Unavailable [phone] Encounter Details Date Type Department Care Team (Late Contact Info) Description 04/15/2023 Orders Only [facility] MED & PEDS [address] [place] [address] Yasemin Epstein LPN Social History Tobacco Use [...] Description 01/11/2025 1:30 PM EDT Medication Management [facility] MED & PEDS [address] [place] [address] Etelvina Hu, PharmD [address] [place] [address] documented as of this encounter Visit Diagnoses Not on filedocumented in this encounter Care Teams Mixer Dry Food Products Relationship Specialty Start Date End Date Starr Anderson MD [address] [place] [address] PCP - General Family Medicine 08/18/18 Etelvina Hu PharmD [address] [place] [phone] Pharmacist Internal Medicine 10/05/24 documented as of this encounter
--- OUTSIDE RECORDS SUMMARY | 2024-12-24 20:27 | XMS_ITS | Encounter Summary ---
Author Organization [employer] Address [address] [facility] 7t [place] [address] Care Team Providers Care Rotogravure Press Operator Name Role Phone Starr Anderson MD Primary Care Provider [phone] Etelvina Hu PharmD Unavailable [phone] Reason for Visit * Reason Comments Med Refill Encounter Details Date Type Department Care Team ([facility] Contact Info) Description 09/16/2022 Refill [facility] MEDICINE [address] [place] [address] Starr Anderson MD [address] [facility] [place] [place] [address] Typical atrial flutter (CMS/HCC) Social History Tobacco [...] Upcoming Encounters Date Type Department Care Team ([facility] Contact Info) Description 01/11/2025 1:30 PM EDT Medication Management [facility] CHC MED & PEDS [address] [place] [address] Etelvina Hu PharmD [address] [place] [address] documented as of this encounter Visit Diagnoses Diagnosis Typical atrial flutter (CMS/HCC) documented in this encounter Care Teams Rotogravure Press Operator Relationship Specialty Start Date End Date Starr Anderson MD [address] [place] [address] PCP - General Family Medicine 08/18/18 Etelvina Hu PharmD [address] [place] [address] Pharmacist Internal Medicine 10/05/24 documented as of this encounter
--- OUTSIDE RECORDS SUMMARY | 2024-12-24 20:27 | XMS_ITS | Encounter Summary ---
Author Organization [employer] Address [address] [place] [address] 7t [place] [address] Care Team Providers Care Instrument Lens Inspector Name Role Phone Starr Anderson MD Primary Care Provider [phone] Etelvina Hu PharmD Unavailable [phone] Encounter Details Date Type Department Care Team ([facility] Contact Info) Description 07/30/2022 Abstract [facility] ADULT DENTAL [address] [place] [address] Dental, Provider, DDS Social History Tobacco Use [...] Department Care Team (Late Contact Info) Description 01/11/2025 1:30 PM EDT Medication Management [facility] MED & PEDS [address] [place] [address] Etelvina Hu, PharmD [address] [place], [place] [phone] documented as of this encounter Procedures Procedure Name Priority Date/Time Associated Diagnosis Comments 31,30,29,28,27,26,25,24 ,23,22,21,20,19,18 PARTIAL DENTURE - RESIN Routine 07/30/2022 12:00 AM EST Max COMPLETE DENTURE Routine 07/30/2022 12:00 AM EST documented in this encounter Visit Diagnoses Not on filedocumented in this encounter Care Teams Instrument Lens Inspector Relationship Specialty Start Date End Date Starr Anderson MD [address] [place] [address] PCP - General Family Medicine 08/18/18 Etelvina Hu PharmD [address] [place] [address] Pharmacist Internal Medicine 10/05/24 documented as of this encounter
--- NOTE | 2024-12-24 20:40 | PC.NURSE ---
Patient is a 59-year-old male with a past medical history of hypertension, hyperlipidemia, diabetes, CAD status post CABG in August 2021; presented to the hospital today with a chief complaint accidental flap lac under right great toe as he was trying to removed his dressing with a knife. No active bleeding noted at this time. Known callus to right foot. Alert and oriented. Respirations even and non-labored. Abdomen soft, distended, non-tender with positive bowel sounds. Positive pedal pulses with no edema.
[2024-12-24] MEDS: Lidocaine HCl 1 % MPF 5 ML VIAL SUBCUT (21:43)
[2024-12-24] MEDS: Diphth,Pertus(ACell),Tet Adult 0.5 ML SYRINGE IM (21:59)
[2024-12-24] MEDS: Amoxicillin/Potassium Clav 875 MG TABLET PO (22:42)
[2024-12-24 22:50] VITALS: BP 145/65; PULSE 85; RESP 18; TEMP 36.6; O2SAT 97
== END 2024-12-24 22:50 | disposition home or self-care (01) ==
PROVIDERS: Emergency Provider Emergency Medicine
DX: S91.311A Laceration without foreign body, right foot, initial encounter (principal); W26.0XXA Contact with knife, initial encounter; L84 Corns and callosities; Y93.E8 Activity, other personal hygiene; Y92.039 Unspecified place in apartment as the place of occurrence of the external cause; Y99.9 Unspecified external cause status; Z23 Encounter for immunization
CPT/HCPCS: 12002; 90471; 90715; 99284; J2003

== ENCOUNTER 2025-05-06 08:44 | Outpatient (AMB) | payer OTHER, SELFPAY ==
--- NOTE | 2025-05-06 08:47 | MHC.OFFVIS ---
Vital Signs 05/06/25 08:59 Height 5 ft 11 in Weight 254 lb BMI 35.4 BP 122/86 Blood Pressure Location Rt brachial Position Sitting Pulse 92 Pulse Source Pulse Oximeter Pulse Oximetry (%) 96 Oxygen Delivery Method Room Air Intake Visit Reasons: colo screening Intake Note: Returning pt for recall colo. Last w/ Dr. Narayanan in 2018 CC; Pt denies any current GI sx or concerns. [employer] Consultant Required: No Accompanied by: Self / Same As Patient Allergies No Known Allergies (No Known Allergies*) Allergy (Verified 12/24/24 16:51) HPI HPI colo screening: Details: 59 year old? male with a past medical history of diabetes, hypertension, hyperlipidemia here today for pre colonoscopy screening.? Patient was sent to us by his PCP.? Last colonoscopy in November of 2018. Four tubular adenomas found without high-grade dysplasia or carcinoma. Patient is due for colonoscopy.? Patient denies any gastrointestinal symptoms in the past or at present.? Denies any family history of CRC.? Denies history of difficulty with sedation or anesthesia in the past.? Negative for history of sleep apnea.? Denies any history of cardiac, renal, pulmonary, or hepatic disease.?? No history of infectious? diseases like hepatitis A, B, C, HIV or tuberculosis.? Patient is on Plavix and aspirin [facility] Medical History (Updated 05/06/25 @ 09:30 by JOSE Priest) Hyperlipidemia PAD (peripheral artery disease) Adopted Necrotizing fasciitis HTN (hypertension) Diabetes Surgical History History of incision and drainage Family History Mother No problems noted. Father No problems noted. Social History Household Members: Significant Other Housing: Apartment Do you presently have visiting nurse or other home services: No Alcohol intake: current Alcohol intake frequency: holidays/special occasions only Patient Tobacco Use Status: Former Tobacco user Cigarettes Per Day: 0.5 Second Hand Smoke Exposure: No Substance Use Type: Marijuana service: No Current occupational status: disabled Physical Exam Vital Signs: Last Vital Signs Pulse 92 05/06/25 08:59 BP 122/86 05/06/25 08:59 Pulse Ox 96 05/06/25 08:59 Oxygen Delivery Method Room Air 05/06/25 08:59 BMI result Body Mass Index 35.4 Const General: healthy appearing, no acute distress and well developed Nutritional Appearance: well nourished Orientation/consciousness: patient oriented x3 Resp Effort & Inspection: normal respiratory effort, able to speak in complete sentences, no tracheal deviation and symmetric chest movement Auscultation: clear to auscultation bilaterally Cardio Rate: regular rate GI Inspection: Yes normal to inspection and No distended Palpation (GI): Soft to palpation, not firm, nontender and No hepatosplenomegaly present Auscultation: normal bowel sounds General: Yes no CVA tenderness Back/Spine/Pelvis Back: no CVA tenderness Skin General skin exam: elasticity normal, turgor normal and dry skin Neuro General: patient oriented x3 Psych Appearance: grossly normal Mental Status: mental status grossly normal Assessment & Plan Assessment & Plan (1) Screen for colon cancer: Code(s): Z12.11 - Encounter for screening for malignant neoplasm of colon Plan Patient denies any GI, cardiac or respiratory symptoms.? Denies any issues with anesthesia in the past.? Denies any history of sleep apnea.? No history infectious diseases in the past or present.? Patient is on Plavix and aspirin.? No family of colon cancer. Patient denies melena, hematochezia, unintentional weight loss or ribbon like stools.? Discussed at length the pre-procedure,? prep, diet & medications as well as what to expect prior, during and after the procedure.?? Stressed the importance of good bowel prep.? Recommended the use of Vaseline or Calmoseptine OTC & baby wipes with bowel movements to promote comfort.? ?Patient verbalizes understanding and agrees to plan of care.? He was given the opportunity to ask questions and all questions answered.? We will see him after the procedure.? Orders: Referrals GI Procedure Notification Z12.11 - Encounter for screening for malignant neoplasm of colon Medications: New bisacodyl (Dulcolax (bisacodyl)) take 4 tabs at noon the day before your colonoscopy 20 mg (4 x 5 mg) PO ONCE 4 tabs 0RF constipation 1 day Z12.11 - Encounter for screening for malignant neoplasm of colon polyethylene glycol 3350 (Miralax) As directed by gastroenterology department at [facility] 238 grams PO ONCE 238 grams 0RF Z12.11 - Encounter for screening for malignant neoplasm of colon Coding Level of Care Code New Pt Level 3 (89346) Diagnoses Screen for colon cancer Z12.11 Time Spent (min) 40 Comment 30 minutes spent with patient and additional 10 minutes spent reviewing his records
[2025-05-06 08:59] VITALS: BP 122/86; PULSE 92; O2SAT 96; BMI 35.4
--- OUTSIDE RECORDS SUMMARY | 2025-05-06 09:20 | XMS_ITS | Encounter Summary ---
Author Organization [employer] Address [address] [place] [address] 7 [place] [address] Care Team Providers Care Blood Bank Supervisor Name Role Phone Starr Anderson MD Primary Care Provider [phone] Etelvina Hu PharmD Unavailable [phone] Encounter Details Date Type Department Care Team (Late Contact Info) Description 04/15/2023 Orders Only [facility] CHC MED & PEDS [address] [place] [address] Yasemin Epstein LPN Social History Tobacco Use [...] Care Team (Late st Contact Info) Description 05/10/2025 9:00 AM EDT Office Visit [facility] CHC MED & PEDS [address] [place] [address] Starr Anderson MD [address] [place] [address] 05/30/2025 10:00 AM EDT Medication Management [facility] MED & PEDS [address] [place] [address] Etelvina Hu PharmD [address] [place] [address] documented as of this encounter Visit Diagnoses Not on filedocumented in this encounter Care Teams Blood Bank Supervisor Relationship Specialty Start Date End Date Starr Anderson MD [address] [place] [address] PCP - General Family Medicine 08/18/18 Etelvina Hu, LisaD [address] [place] [address] Pharmacist Internal Medicine 10/05/24 documented as of this encounter
--- OUTSIDE RECORDS SUMMARY | 2025-05-06 09:20 | XMS_ITS | Encounter Summary ---
Author Organization [employer] Address [address] [facility] 7t [place] [address] Care Team Providers Care Sanitation Worker Cleaning Equipment Name Role Phone Starr Anderson MD Primary Care Provider [phone] Etelvina Hu PharmD Unavailable [phone] Reason for Visit * Reason Comments Pre-visit Planning SDOH screening compl eted on 12/17/24 Encounter Details Date Type Department Care Team (Late st Contact Info) Description 05/03/2025 Patient Outreach [facility] MEDICINE [address] [place] [address] Starr Anderson MD [address] [place] [address] Pre-visit Planning (SDOH screening completed on 12/17/24 ) Social History Tobacco Use Types Packs/Day Years [...] AM EDT documented as of this encounter Progress Notes * Refugio Carballo - 05/03/2025 9:48 AM EDT CC Refugio Valencia placed successful outbound call to patient for pre-visit planning. Patient name and confirmed. Patient confirms appt date and time, and has transportation arrangements. Biggest concern for appointment at this time is no concerns. Patient advised to bring to appointment a photo id and insurance card. Appropriate screenings completed in anticipation of appointment. documented in this encounter Plan of Treatment Upcoming Encounters Date Type Department Care Team ([facility] st Contact Info) Description 05/10/2025 9:00 AM EDT Office Visit [facility] MED & PEDS [address] [place] [address] Starr Anderson MD [address] [place] [address] 05/30/2025 10:00 AM EDT Medication Management [facility] MED & PEDS [address] [place] [address] Etelvina Hu PharmD [address] [place] [address] documented as of this encounter Visit Diagnoses Not on filedocumented in this encounter Additional Health Concerns Assessment Noted Time PHQ-9 Depression Total Score: 2 06/03/20 24 10:49 AM EDT documented as of this encounter Care Teams Sanitation Worker Cleaning Equipment Relationship Specialty Start Date End Date Starr Anderson MD [address] [place] [address] PCP - General Family Medicine 08/18/18 Etelvina Hu PharmD [address] [place] [address] Pharmacist Internal Medicine 10/05/24 documented as of this encounter
--- OUTSIDE RECORDS SUMMARY | 2025-05-06 09:20 | XMS_ITS | Encounter Summary ---
Author Organization [employer] Address 75 [facility] 7t [place] [address] Care Team Providers Care Petrographer Name Role Phone Starr Anderson MD Primary Care Provider [phone] Etelvina Hu PharmD Unavailable [phone] Reason for Visit * Reason Comments Med Refill Encounter Details Date Type Department Care Team ([facility] Contact Info) Description 12/14/2024 Refill [facility] CHC MED & PEDS [address] [place] [address] Starr Anderson MD [address] [place] [address] Social History Tobacco Use Types Packs/Day Years [...] the past 12 months, has t he [employer], gas, oil or water company threatened to [...] Description 05/10/2025 9:00 AM EDT Office Visit [facility] MED & PEDS [address] [place] [address] Starr Anderson MD [address] [place] [address] 05/30/2025 10:00 AM EDT Medication Management [facility] MED & PEDS [address] [place] [address] Etelvina Hu, PharmD [address] [place] [address] documented as of this encounter Visit Diagnoses Not on filedocumented in this encounter Additional Health Concerns Assessment Noted Time PHQ-9 Depression Total Score: 2 06/03/20 24 10:49 AM EDT documented as of this encounter Care Teams Petrographer Relationship Specialty Start Date End Date Starr Anderson MD [address] [place] [address] PCP - General Family Medicine 08/18/18 Etelvina Hu PharmD [address] [place] [address] Pharmacist Internal Medicine 10/05/24 documented as of this encounter
--- OUTSIDE RECORDS SUMMARY | 2025-05-06 09:20 | XMS_ITS | Encounter Summary ---
Author Organization [employer] Address [address] [place] [address] 7 [place] [address] Care Team Providers Care Rotary Lithographic Press Operator Name Role Phone Starr Anderson MD Primary Care Provider [phone] Etelvina Hu PharmD Unavailable [phone] Encounter Details Date Type Department Care Team ([facility] Contact Info) Description 07/30/2022 Abstract [facility] AD[facility] DENTAL [address] [place] [address] Dental, Provider, DDS Social History Tobacco Use [...] Upcoming Encounters Date Type Department Care Team ([facility] Contact Info) Description 05/10/2025 9:00 AM EDT Office Visit [facility] MED & PEDS [address] [place] [address] Starr Anderson MD [address] [place] [address] 05/30/2025 10:00 AM EDT Medication Management [facility] MED & PEDS [address] [place] [address] Etelvina Hu PharmD [address] [place] [address] documented as of this encounter Procedures Procedure Name Priority Date/Time Associated Diagnosis Comments 31,30,29,28,27,26,25,24 ,23,22,21,20,19,18 PARTIAL DENTURE - RESIN Routine 07/30/2022 12:00 AM EST Max COMPLETE DENTURE Routine 07/30/2022 12:00 AM EST documented in this encounter Visit Diagnoses Not on filedocumented in this encounter Care Teams Rotary Lithographic Press Operator Relationship Specialty Start Date End Date Starr Anderson MD [address] [place] [address] PCP - General Family Medicine 08/18/18 Etelvina Hu PharmD [address] [place] [address] Pharmacist Internal Medicine 10/05/24 documented as of this encounter
--- OUTSIDE RECORDS SUMMARY | 2025-05-06 09:20 | XMS_ITS | Clinical Summary ---
Author Organization [employer] Address 75 [facility] 7t [place] [address] Care Team Providers Care Heel Painter Name Role Phone Starr Anderson MD Primary Care Provider [phone] Etelvina Hu PharmD Unavailable [phone] Allergies No known active allergies Medications valsartan (Diovan) 40 MG tablet Take 40 mg by mouth in the morning. 08/07/20 22 Active carvedilol (Coreg) 6.25 MG tablet TAKE ONE TABLET IN THE MORNING AND EVENING WITH FOOD 12/11/19 23 Active atorvastatin (Lipitor) 80 MG tablet TAKE [...] both eyes and macular edema, unspecified whether custodial insulin use (CMS/[facility]) 1 kit 4 times daily. 1 kit 06/03/20 24 Active metFORMIN (Glucophage) 1000 MG tablet Take 1 tablet (1,000 mg) by mouth with breakfast and with evening meal. 60 tablet 11 06/03/20 24 025 Active clopidogrel (Plavix) 75 MG tabletIndications:Ty pical atrial flutter ([facility]) TAKE ONE TABLET EVERY MORNING 90 tablet 1 09/13/19 25 Active empagliflozin (Jardiance) 25 MG Take 1 tablet (25 mg) by mouth in the morning. 30 tablet 11 12/15/19 25 Active bacitracin 500 UNIT/GM ointment Apply topically 2 times daily. 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 2 mL 1 04/25/20 25 Active Tirzepatide (Mounjaro) 10 MG/0.5ML solution auto-injector Inject 10 mg under the skin 1 (one) time per week. 2 mL 2 02/26/20 25 025 Discontin ued(Dose adjustmen t) varenicline (Chantix) 1 MG tablet Take 1 tablet (1 mg) by mouth 2 times daily. Take with full glass of water. 60 tablet 1 03/25/20 25 025 Discontin ued(Thera py completed ) Active Problems Problem Noted Date Diagnosed Date Laceration of right foot 12/29/2024 Personal history of atrial flutter 04/16/2023 Coronary artery disease invo lving gambell coronary artery of gambell heart without angina pectoris 09/10/2022 Type 2 diabetes mellitus 08/21/2022 Hyperlipidemia 08/21/2022 Morbid obesity with body mass index (BMI) of 40. 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, unspecified whether custodial insulin use (CMS/HCC) 02/25/2025 Travel 02/20/2025 Refill [facility] MED & PEDS [address] [place] [address] Starr Anderson MD 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 isabela fied surface antigen) 06/22/2013,05/22/2012 Influenza, seasonal, injecta ble, preservative free 06/03/2024 Pfizer Covid-19 Vaccine 12+ 06/03/2024, Pfizer Covid-19 Vaccine 12+ Bivalent 09/04/2022 Pneumococcal Conjugate PCV 20 10/05/2024 Pneumococcal Polysaccharide PPSV23 08/26/2007 TD (adult), 2 Lf tetanus tox oid, preservative free, adsorbed 10/16/2007 Tdap 12/24/2024,08/14/2015 Zoster, Recombinant 02/25/2019,09/18/2018 Social History Tobacco Use [...] Sign Reading Time Taken Comments Blood Pressure 102/58 03/25/2025 11:15 AM EDT Pulse 95 03/25/2025 11:15 AM EDT Temperature 36.2 C (97.1 F) 01/04/2025 11:27 AM EDT Respiratory Rate 16 01/04/2025 11:27 AM EDT Oxygen Saturation 99% 01/04/2025 11:27 AM EDT Inhaled Oxygen Concentration - - Weight 120 kg (264 lb) 01/04/2025 11:27 AM EDT Height 180.3 cm (5' 11 ) 01/04/2025 11:27 AM EDT Body Mass Index 36.82 01/04/2025 11:27 AM EDT Plan of Treatment Upcoming Encounters Date Type Department Care Team (Late st Contact Info) Description 05/10/2025 9:00 AM EDT Office Visit [facility] MED & PEDS [address] [place] [address] Starr Anderson MD [address] [place] [address] 05/30/2025 10:00 AM EDT Medication Management [facility] MED & PEDS [address] [place], [place] [phone] Etelvina Hu, PharmD [address] [place] [address] Health Maintenance Due Date Last Done Comments CT Colonography 1964 Dental Oral Exam 1964 Dental Prophylaxis 1964 Dental X-Ray: Bitewings 1964 Dental X-Ray: Full Mouth 1964 FIT DNA/Cologuard 1964 FIT 1964 FOBT 1964 HIV Screening 1964 Sigmoidoscopy 1964 Eye Exam 1974 Hepatitis C Screening 1982 RSV Patients and Patients Aged 60 years or older (1 - Risk 60-74 years 1-dose series) 2024 Influenza Vaccine (#1) 2025 , 07/07/2023, 06/12/2022, Additional history exists Alcohol/Substance Use Screening 06/03/2025 06/03/2024 Depression Screening 06/03/2025 06/03/2024, 06/03/20 24 Diabetes: Hemoglobin A1C 06/25/2025 08 025, 12/29/2024, 10/05/2024, Additional history exists Diabetes: Urine Protein Screening 11/15/2025 11/15/2024, 11/25/2023, 01/04/2022, Additional history exists Lipid Panel 11/15/2025 11/15/2024, 04/0 04/2024, 09/13/2022, Additional history exists Disability Screening 12/17/2025 12/17/2024 SDOH Screening 12/17/2025 12/17/2024 Tobacco Screening 12/17/2025 12/17/2024 Diabetes: Foot Exam 03/08/2026 03/08/2025, 12/17/2024, 12/17/2024, Additional history exists Colonoscopy 12/15/2028 12/15/2018, 12/15/2018 Colorectal Cancer Screening 12/15/2028 DTaP/Tdap/Td Vaccines (3 - Td or Tdap) 12/24/2034 12/24/2024, 08/14/2015, 10/16/2007 Zoster Vaccines Completed 02/25/2019, 09/18/2018 Hepatitis B Vaccines Completed 01/10/2022, 12/07/19 COVID-19 Vaccine Completed 06/03/2024, , 09/04/2022, Additional history exists Pneumococcal Vaccine: 50+ Years [...] patient's age to complete this topic Meningococcal B Vaccine Aged Out No l onger eligible based on patient's age to complete [...] Diagnosis Comments POCT GLYCATED HEMOGLOBIN, TOTAL Routine 03/25/2025 11:27 AM EDT 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, unspecified whether custodial insulin use (CMS/HCC) AMB REFERRAL TO PODIATRY Routine 03/08/2025 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, unspecified whether extermination supervisor insulin use (CMS/HCC) ALBUMIN, RANDOM URINE W/CREATININE Routine 11/15/2024 12:00 PM EDT LIPID PANEL, STANDARD Routine 11/15/2024 11:40 AM EDT HM COLONOSCOPY Routine 12/15/2018 12:08 PM EDT from Last 3 Months or Most Recently Relevant to Health Maintenance Results * (ABNORMAL) POCT A1c (03/25/2025 11:27 AM EDT) Hemoglobin A1C 8.6(A) 4.0 - 5.7 % QC Media Lot # [id number] Lot# Expiration Date Blood 03/25/2025 11:2 7 AM EDT Result Rikki Anderson MD POINT OF CARE TEST ENTER/EDIT ORDERABLES Final Result * Referral to Podiatry (03/08/2025) Result Rikki Anderson MD OUTPATIENT REFERRAL ORDERABLE S Final Result * Albumin, Random Urine W/Creatinine (11/15/2024 12:00 PM EDT) Creatinine, Urine 49.45 mg/dL [facility] Microalbumin Urine 12.0 mg/L [facility] Microalbum Creatinine Ratio Ur 24.2 <30 ug/mg cr [facility] Comment:Albumin/Creatinine R atio Reference Ranges: Normal: < 30 ug/mg creatinine Microalbuminuria: 30 - 300 ug/mg creatinineClinical Albuminuria: > 300 ug/mg creatinine 11/15/2024 12:0 0 PM EDT 11/15/2024 2:59 PM EDT Result Rikki Anderson MD LAB URINE ORDERABLES Final Re sult [facility] [address] [place] [phone] * (ABNORMAL) Lipid Panel, Standard (11/15/2024 11:40 AM EDT) Triglycerides 113 <150 mg/dL [facility] Comment:Desirable Triglyceri de: less than 150 mg/dLBorderline High Triglyceride 150-199 mg/dLHigh Triglyceride: 200-499 mg/dLVery High Triglyceride: greater than or equal to 5OO mg/dL Cholesterol 135 <200 mg/dL [facility] Comment:Desirable Cholestero l: less than 200 mg/dLBorderline High Cholesterol: 200-239 mg/dLHigh Cholesterol: greater than 239 mg/dL LDL Cholesterol Calculated 79 <100 mg/dL [facility] Comment:Desirable LDL: less than 100 mg/dLNear Optimal/Above Optimal LDL: 110- 129 mg/dLBorderline High LDL: 130-159 mg/dLHigh LDL: 160-189 mg/dLVery High LDL: greater than or equal to 190 mg/dL HDL Cholesterol 34(L) >40 mg/dL [facility] Comment:Desirable HDL: great er than 40 mg/dL Note: This HDL assay may give artificially low results in patients with liver disease. 11/15/2024 11:4 0 AM EDT 11/15/2024 2:54 PM EDT Starr Anderson MD LAB BLOOD ORDERABLES Final Re sult [facility] [address] [place] [address] [phone] * Colonoscopy (12/15/2018 12:08 PM EDT) Historical Provider HEALTH MAINTENANCE Final Result from Last 3 Months or Most Recently Relevant to Health Maintenance Insurance [facility] STANDARD CCA ONE CARE < 65 DENTAL-[facility] MEDICAID STAND ADULT [address] [place] [address] 2 [place] [address] 2 [place] [address] Care Teams Heel Painter Relationship Specialty Start Date End Date Starr Anderson MD [address] [place] [address] PCP - General Family Medicine 08/18/18 Etelvina Hu, LisaD [address] [place] [address] Pharmacist Internal Medicine 10/05/24
--- OUTSIDE RECORDS SUMMARY | 2025-05-06 09:20 | XMS_ITS | Clinical Summary ---
Author Organization [facility] Address [address] [place] [address] Phone Care Team Providers Care Public Finance Specialist Name Role Phone Starr Anderson MD Primary Care Provider [phone] Encounters Date Type Department Care Team Description 03/08/2025 1:30 PM EDT Consult Orthopedic Surgery [facility] [address] [phone] Kalin Miner DPM Controlled type 2 diabetes with neuropathy (CMS/HCC V24, CMS/HCC V28) (Primary Dx); Arthritis of both feet; Hammertoes of both feet; Dermatophytosis, nail; Contusion of lesser toe of right foot with damage to nail, initial encounter from Last 3 Months Social History Tobacco Use Types Packs/Day Years Used Date Smoking Tobacco: Never Assessed Sex and Gender Information Value Date Recorded Sex Assigned at Not on file Legal Sex Male 3:56 PM EST Gender Identity Not on file Sexual Orientation Not on file Plan of Treatment Upcoming Encounters Date Type Department Care Team (Late st Contact Info) Description 06/08/2025 1:00 PM EDT Office Visit Orthopedic Surgery [facility] [address] [phone] Kalin Miner DPM [address] [address] Health Maintenance Due Date Last Done Comments Diabetes: Annual GFR (Glomerular Filtration Rate) 1964 Diabetes: Annual Foot Exam 1974 Diabetes: Annual Retina Eye Exam 1974 Depression Screening 08/18/2024 RSV Immunization Adult Patients (1 - Risk 60-74 years 1-dose series) 2024 Colorectal Cancer Screening: Colonoscopy 12/25/2024 Diabetes: Annual Urine Albumin-Creatinine Ratio (uACR) 12/25/2024 HIV Screening 12/25/2024 Hepatitis C Screening 12/25/2024 Medicare Annual Wellness Visit 12/25/2024 Social Influencers of Health Screening 12/25/2024 Hypertension/CHF/CAD Annual BMP Blood Test 03/09/2025 Influenza Vaccine (#1) 2025 , 07/07/2023, 06/12/2022, Additional history exists Diabetes: Blood Sugar Control Test (HGBA1C) 07/01/2025 12/29/2024 Cholesterol Screening (Lipid Panel) 11/15/2029 11/15/2024 DTaP,Tdap,and Td Vaccines (4 - Td or Tdap) 12/24/2034 12/24/2024, 08/14/2015, [...] on patient's age to complete this topic MMR Vaccines Aged Out No longer eligi ble based on patient's age to complete this topic Meningococcal ACWY Vaccine Aged Out N o longer eligible based on patient's age to complete this topic Meningococcal B Vaccine Aged Out No l onger eligible based on patient's age to complete this topic RSV Immunization Patients Under 20 months Aged Out No longer eligible based on patient's age to complete this topic Varicella Vaccines Aged Out No longer eligible based on patient's age to complete this topic Insurance [employer] MEDICARE Member Subscriber Plan / Payer (Ef fective 2024-Present) Name:PARTH ORNELAS Relation to Subscriber:Self Name:Parth Ornelas Payer ID:[id number] Group ID:[id number] Type:Not on file Address: [place] [address] [place] [id number] Care Teams Public Finance Specialist Relationship Specialty Start Date End Date Starr Anderson MD [address] [place] [address] [place] [address] PCP - General Internal Medicine 12/25/24
--- OUTSIDE RECORDS SUMMARY | 2025-05-06 09:20 | XMS_ITS | Encounter Summary ---
Author Organization [employer] Address 75 [facility] 7t [place] [address] Care Team Providers Care Plant Control Aide Name Role Phone Starr Anderson MD Primary Care Provider [phone] Etelvina Hu PharmD Unavailable [phone] Reason for Visit * Reason Comments Med Refill Encounter Details Date Type Department Care Team ([facility] Contact Info) Description 09/16/2022 Refill [facility] MEDICINE [address] [place] [address] Starr Anderson MD [address] [place] [address] Typical atrial flutter (CMS/HCC) Social History Tobacco [...] Upcoming Encounters Date Type Department Care Team ([facility] Contact Info) Description 05/10/2025 9:00 AM EDT Office Visit [facility] [address] [place] [address] Starr Anderson MD [address] [place] [address] 05/30/2025 10:00 AM EDT Medication Management [facility] MED & PEDS [address] [place] [address] Etelvina Hu PharmD [address] [place] [address] documented as of this encounter Visit Diagnoses Diagnosis Typical atrial flutter (CMS/HCC) documented in this encounter Care Teams Plant Control Aide Relationship Specialty Start Date End Date Starr Anderson MD [address] [place] [address] PCP - General Family Medicine 08/18/18 Etelvina Hu, Louise [address] [place] [address] Pharmacist Internal Medicine 10/05/24 documented as of this encounter
--- OUTSIDE RECORDS SUMMARY | 2025-05-06 09:20 | XMS_ITS | Encounter Summary ---
Author Organization [employer] Address 75 [facility] 7t [place] [address] Care Team Providers Care Printer Small Print Shop Name Role Phone Starr Anderson MD Primary Care Provider [phone] Etelvina Hu PharmD Unavailable [phone] Encounter Details Date Type Department Care Team (Late st Contact Info) Description 12/17/2024 Orders Only [facility] MED & PEDS [address] [place] [address] Provider, MD Angelina Social History Tobacco Use [...] 9:00 AM EDT Office Visit [facility] MED & PEDS [address] [place] [address] Starr Anderson MD [address] [place] [address] 05/30/2025 10:00 AM EDT Medication Management [facility] MED & PEDS [address] [place] [address] Etelvina Hu, PharmD [address] [place] [address] documented as of this encounter Procedures Procedure Name Priority Date/Time Associated Diagnosis Comments HM COLONOSCOPY Routine 12/15/2018 12:08 PM EDT documented in this encounter Results * Hm Colonoscopy (12/15/2018 12:08 PM EDT) us Historical Provider HEALTH MAINTENANCE Final Result documented in this encounter Visit Diagnoses Not on filedocumented in this encounter Additional Health Concerns Assessment Noted Time PHQ-9 Depression Total Score: 2 06/03/20 24 10:49 AM EDT documented as of this encounter Care Teams Printer Small Print Shop Relationship Specialty Start Date End Date Starr Anderson MD [address] [place] [address] PCP - General Family Medicine 08/18/18 Etelvina Hu PharmD [address] [place] [address] Pharmacist Internal Medicine 10/05/24 documented as of this encounter
== END 2025-05-06 09:35 | disposition home or self-care (01) ==
LOC: HO.HGI 08:44
PROVIDERS: Visit Provider Nurse Practitioner Family
DX: Z01.818 Encounter for other preprocedural examination (principal); Z12.11 Encounter for screening for malignant neoplasm of colon; Z86.0101 Personal history of adenomatous and serrated colon polyps
CPT/HCPCS: 99203

== ENCOUNTER → 2025-05-06 08:44 | Outpatient (BNVA) | payer OTHER, SELFPAY | PROVIDERS: Visit Provider Nurse Practitioner Family | DX: Z01.818 Encounter for other preprocedural examination (principal); Z12.11 Encounter for screening for malignant neoplasm of colon; Z86.0100 Personal history of colon polyps, unspecified | CPT/HCPCS: 99202 ==